=== PATIENT | male | born 1995 | race Caucasian/White ===

== ENCOUNTER 2023-03-15 15:22 | Inpatient (IN) | payer OTHER ==
[2023-03-15] MEDS ORDERED: SODIUM CHLORIDE 0.9% 1,000 ML IV STA (16:05)
[2023-03-15] MEDS ORDERED: KETOROLAC 15 MG/ML 1 ML VIAL IVP STA (16:23)
[2023-03-15] MEDS ORDERED: ONDANSETRON 4 MG/2 ML VIAL IVP STA (16:23)
[2023-03-15 16:53] LABS: Basophils # (A) 0.1 k/uL (0-0.2); Basophils % (A) 1 %; Eosinophils # (A) 0.1 k/uL (0-0.7); Eosinophils % (A) 1 %; HCT 48.5 % (39.0-53.0); Lymphocytes # (A) 2.2 k/uL (1.0-4.8); Lymphocytes % (A) 19 %; MCH 30.3 pg (25.0-35.0); MCV 91.8 fL (80.0-100.0); Mean Platelet Volume 7.8; Monocytes # (A) 0.6 k/uL (0-1.0); Monocytes % (A) 5 %; Neutrophils # (A) 8.8 k/uL (1.3-7.7); Neutrophils % (A) 74 %; Platelet Count 561 k/uL (150-450); RBC 5.28 m/uL (4.30-5.90); RDW 11.9 % (11.5-15.5); WBC 11.9 k/uL (3.8-10.6)
[2023-03-15] MEDS ORDERED: PIPERACILLIN-TAZOBACTAM 3.375 GM in SODIUM CHLORIDE 0.9% 100 ML IVPB STA (17:02)
--- NOTE | 2023-03-15 17:05 | CT ---
EXAMINATION TYPE: CT abdomen pelvis w con DATE OF EXAM: 03/15/2023 COMPARISON: None. HISTORY: abdominal pain, blood in stool CT DLP: 1768.3 mGycm, Automated Exposure Control for Dose Reduction was Utilized. CONTRAST: CT scan of the abdomen and pelvis is performed without oral and with IV Contrast, patient injected wi th 100 mL of Isovue 300. FINDINGS: LUNG BASES: No significant abnormality is appreciated. LIVER/GB: Liver is diffusely low density consistent with fatty infiltration. Tiny dependent gallstone axial image 27. No surrounding fluid or fat stranding. PANCREAS: No significant abnormality is seen. SPLEEN: No significant abnormality is seen. ADRENALS: No significant abnormality is seen. KIDNEYS: No significant abnormality is seen. BOWEL: Slightly suboptimal evaluation without enteric contrast. No suspicious small or large bowel di latation. Appendix appears within normal limits ascending posteriorly from the cecum. There is modera te wall thickening in the right colon into the transverse colon and mild wall thickening in the left colon. There is moderate to severe wall thickening in the sigmoid colon. There is extraluminal air wi th moderate to severe focal fat stranding in the left pelvis axial image 79 consistent with perforate d colitis possible diverticulitis. No well-formed fluid collection or abscess seen. No additional fr ee air noted. PROSTATE/SEMINAL VESICLES: No gross abnormality seen. LYMPH NODES: No greater than 1cm abdominal or pelvic lymph nodes are appreciated. OSSEOUS STRUCTURES: No significant abnormality is seen. OTHER: No significant additional abnormality is seen. IMPRESSION: Multilevel colitis felt present. There is acute severe colitis in the sigmoid colon with perforation in the left pelvis. No well-formed fluid collection or abscess seen. Case discussed with Dr Campo of the emergency room by telephone at time of dictation.
[2023-03-15 17:08] LABS: ALT 147 U/L (4-49); AST 69 U/L (17-59); African American GFR (CKD) >90 (>60 ml/min/1.73 sqM); Albumin 4.6 g/dL (3.5-5.0); Alkaline Phosphatase 143 U/L (38-126); Anion Gap 10 mmol/L; Blood Urea Nitrogen 12 mg/dL (9-20); Calcium 10.2 mg/dL (8.4-10.2); Carbon Dioxide 30 mmol/L (22-30); Chloride 99 mmol/L (98-107); Glucose 91 mg/dL (74-99); Lipase 78 U/L (23-300); Non-African American GFR(CKD) >90 (>60 ml/min/1.73 sqM); Sodium 139 mmol/L (137-145); Total Bilirubin 0.8 mg/dL (0.2-1.3); Total Protein 8.8 g/dL (6.3-8.2)
[2023-03-15] MEDS ORDERED: NALOXONE 0.4 MG/ML 1 ML VIAL IV PRN (17:44)
--- NOTE | 2023-03-15 17:47 | ED ---
Abdominal Pain HPI - General Chief Complaint: Abdominal Pain Stated Complaint: bloody stool Time Seen by Provider: 03/15/23 16:05 Source: patient Mode of arrival: ambulatory Limitations: no limitations - History of Present Illness Initial Comments: Patient is a 27-year-old male presents to the emergency department for abdominal pain. Patient reports intermittent abdominal pain for the past 2 weeks it has been worsening. Pain is sharp across his entire lower abdomen, worse in the left lower abdomen. Patient also complaining of rectal pain. He does admit to some mild straining with bowel movements. Denies history of hemorrhoids. He has had consistent diarrhea and for the past 3 days has noticed red streaking in his stool. He does not use blood thinners. He reports nausea without any vomiting. No fevers or chills. Denies history of GI bleed, colitis, diverticulitis. No back pain, burning with urination, blood in the urine. - Related Data Home Medications Medication Instructions Recorded Confirmed No Known Home Medications 03/15/23 03/15/23 Allergies Allergy/AdvReac Type Severity Reaction Status Date / Time No Known Allergies Allergy Verified 03/15/23 17:24 Review of Systems ROS Statement: Those systems with pertinent positive or pertinent negative responses have been documented in the HPI. ROS Other: All systems not noted in ROS Statement are negative. Past Medical History Past Medical History: No Reported History History of Any Multi-Drug Resistant Organisms: None Reported Past Surgical History: No Surgical Hx Reported Past Psychological History: No Psychological Hx Reported Smoking Status: Former smoker, Vaper Past Alcohol Use History: Occasional Past Drug Use History: None Reported General Exam Limitations: no limitations Head exam: Present: atraumatic, normocephalic, normal inspection Eye exam: Present: normal appearance, PERRL, EOMI. Absent: scleral icterus, conjunctival injection, periorbital swelling Respiratory exam: Present: normal lung sounds bilaterally. Absent: respiratory distress, wheezes, rales, rhonchi, stridor Cardiovascular Exam: Present: regular rate, normal rhythm, normal heart sounds. Absent: systolic murmur, diastolic murmur, rubs, gallop, clicks GI/Abdominal exam: Present: soft, tenderness (moderate LLQ), normal bowel sounds. Absent: distended, guarding, rebound, rigid Rectal exam: Present: normal inspection, tenderness. Absent: bloody stool, hemorrhoids, mass Neurological exam: Present: alert, oriented X3, CN II-XII intact Psychiatric exam: Present: normal affect, normal mood Skin exam: Present: warm, dry, intact, normal color. Absent: rash Course Vital Signs 03/15/23 15:23 Temperature 98.7 F Pulse Rate 84 Respiratory 20 Rate Blood Pressure 121/84 O2 Sat by Pulse 100 Oximetry Medical Decision Making - Medical Decision Making Was pt. sent in by a medical professional or institution (, PA, RN DIABETES, urgent care, hospital, or long-term...) When possible be specific @ -[No] Did you speak to anyone other than the patient for history (EMS, parent, family, police, friend...)? What history was obtained from this source @ -[No] Did you review nursing and triage notes (agree or disagree)? Why? @ -[I reviewed and agree with nursing and triage notes] Were old charts reviewed (outside hosp., previous admission, EMS record, old EKG, old radiological studies, urgent care reports/EKG's, long-term records)? Report findings @ -[No old charts were reviewed] Differential Diagnosis (chest pain, altered mental status, abdominal pain women, abdominal pain men, vaginal bleeding, weakness, fever, dyspnea, syncope, headache, dizziness, GI bleed, back pain, seizure, CVA, palpatations, mental health)? @ -Differential Abdominal Pain Men: Appendicitis, cholecystitis, diverticulosis, ischemic bowel, pancreatitis, hepatitis, UTI, gastroenteritis, AAA, incarcerated hernia, bowel obstruction, constipation, inflammatory bowel, hepatitis, peptic ulcer disease, splenic infarction, perforated viscus, testicular torsion, this is not meant to be an all-inclusive list EKG interpreted by me (3pts min.). @ -[As above] X-rays interpreted by me (1pt min.). @ -[None done] CT interpreted by me (1pt min.). @ -Yes, CT of the abdomen and pelvis with contrast shows multilevel colitis with severe colitis in the sigmoid colon with perforation. No fluid collection or abscess U/S interpreted by me (1pt. min.). @ -[None done] What testing was considered but not performed or refused? (CT, X-rays, U/S, labs)? Why? @ -[None] What meds were considered but not given or refused? Why? @ -[None] Did you discuss the management of the patient with other professionals (professionals i.e. DrAmanuel, PA, RN DIABETES, lab, RT, psych nurse, social media senior associate, lease out worker, teacher, plant protection officer, pillowcase cleaner)? Give summary @ -[No] Was smoking cessation discussed for >3mins.? @ -[No] Was critical care preformed (if so, how long)? @ -[No] Were there social determinants of health that impacted care today? How? (Homelessness, low income, unemployed, alcoholism, drug addiction, transportation, low edu. Level, literacy, decrease access to med. care, [place] [facility], rehab)? @ -[No] Was there de-escalation of care discussed even if they declined (Discuss DNR or withdrawal of care, Hospice)? DNR status @ -[No] What co-morbidities impacted this encounter? (DM, HTN, Smoking, COPD, CAD, Cancer, CVA, ARF, Chemo, Hep., AIDS, mental health diagnosis, sleep apnea, morbid obesity)? @ -[None] Was patient admitted / discharged? Hospital course, mention meds given and route, prescriptions, significant lab abnormalities, going to OR and other pertinent info. @ -Patient presenting with abdominal pain. The abdomen is soft. Tenderness in the left lower quadrant without rebound tenderness or guarding. Patient is afebrile. Hemodynamically stable. No vomiting. Labs obtained. There is leukocytosis at 11.9. Hemoccult positive. CT shows multilevel colitis with severe colitis in the sigmoid colon perforation. There is no fluid collection or abscess. Blood cultures obtained. Zosyn initiated. Case discussed with Dr. Woods patient will be admitted to him. Dr. Woods requested Dr. Hooper for medical management. Patient admitted in stable condition Undiagnosed new problem with uncertain prognosis? @ -[No] Drug Therapy requiring intensive monitoring for toxicity (Heparin, Nitro, Insulin, Cardizem)? @ -[No] Were any procedures done? @ -[No] Diagnosis/symptom? @ -[default] Acute, or Chronic, or Acute on Chronic? @ -[default] Uncomplicated (without systemic symptoms) or Complicated (systemic symptoms)? @ -[default] Side effects of treatment? @ -[No] Exacerbation, Progression, or Severe Exacerbation? @ -[No] Poses a threat to life or bodily function? How? (Chest pain, [place], [place], pneumonia, PE, COPD, DKA, ARF, appy, cholecystitis, CVA, Diverticulitis, Homicidal, Suicidal, threat to staff... and all critical care pts) @ -[No] Dr. Ortiz is my attending - Lab Data Result diagrams: 03/15/23 16:37 03/15/23 16:37 Lab Results 03/15/23 03/15/23 03/15/23 Range/Units 16:37 16:37 16:37 WBC 11.9 H (3.8-10.6) k/uL RBC 5.28 (4.30-5.90) m/uL Hgb 16.0 (13.0-17.5) gm/dL Hct 48.5 (39.0-53.0) % MCV 91.8 (80.0-100.0) fL MCH 30.3 (25.0-35.0) pg MCHC 33.0 (31.0-37.0) g/dL RDW 11.9 (11.5-15.5) % Plt Count 561 H (150-450) k/uL MPV 7.8 Neutrophils % 74 % Lymphocytes % 19 % Monocytes % 5 % Eosinophils % 1 % Basophils % 1 % Neutrophils # 8.8 H (1.3-7.7) k/uL Lymphocytes # 2.2 (1.0-4.8) k/uL Monocytes # 0.6 (0-1.0) k/uL Eosinophils # 0.1 (0-0.7) k/uL Basophils # 0.1 (0-0.2) k/uL Sodium 139 (137-145) mmol/L Potassium 5.0 (3.5-5.1) mmol/L Chloride 99 (98-107) mmol/L Carbon Dioxide 30 (22-30) mmol/L Anion Gap 10 mmol/L BUN 12 (9-20) mg/dL Creatinine 0.69 (0.66-1.25) mg/dL Est GFR (CKD-EPI)AfAm >90 (>60 ml/min/1.73 sqM) Est GFR (CKD-EPI)NonAf >90 (>60 ml/min/1.73 sqM) Glucose 91 (74-99) mg/dL Plasma Lactic Acid Choco (0.7-2.0) mmol/L Calcium 10.2 (8.4-10.2) mg/dL Total Bilirubin 0.8 (0.2-1.3) mg/dL AST 69 H (17-59) U/L ALT 147 H (4-49) U/L Alkaline Phosphatase 143 H (38-126) U/L Total Protein 8.8 H (6.3-8.2) g/dL Albumin 4.6 (3.5-5.0) g/dL Lipase 78 (23-300) U/L Stool Occult Blood Positive (Negative) 03/15/23 Range/Units 16:37 WBC (3.8-10.6) k/uL RBC (4.30-5.90) m/uL Hgb (13.0-17.5) gm/dL Hct (39.0-53.0) % MCV (80.0-100.0) fL MCH (25.0-35.0) pg MCHC (31.0-37.0) g/dL RDW (11.5-15.5) % Plt Count (150-450) k/uL MPV Neutrophils % % Lymphocytes % % Monocytes % % Eosinophils % % Basophils % % Neutrophils # (1.3-7.7) k/uL Lymphocytes # (1.0-4.8) k/uL Monocytes # (0-1.0) k/uL Eosinophils # (0-0.7) k/uL Basophils # (0-0.2) k/uL Sodium (137-145) mmol/L Potassium (3.5-5.1) mmol/L Chloride (98-107) mmol/L Carbon Dioxide (22-30) mmol/L Anion Gap mmol/L BUN (9-20) mg/dL Creatinine (0.66-1.25) mg/dL Est GFR (CKD-EPI)AfAm (>60 ml/min/1.73 sqM) Est GFR (CKD-EPI)NonAf (>60 ml/min/1.73 sqM) Glucose (74-99) mg/dL Plasma Lactic Acid Choco 1.0 (0.7-2.0) mmol/L Calcium (8.4-10.2) mg/dL Total Bilirubin (0.2-1.3) mg/dL AST (17-59) U/L ALT (4-49) U/L Alkaline Phosphatase (38-126) U/L Total Protein (6.3-8.2) g/dL Albumin (3.5-5.0) g/dL Lipase (23-300) U/L Stool Occult Blood (Negative) Disposition Clinical Impression: Perforation bowel Disposition: ADMITTED IP TO THIS [facility] Condition: Stable Referrals: None,Stated [Primary Care Provider] - 1-2 days
[2023-03-15] MEDS ORDERED: CLARITHROMYCIN 500 MG TAB PO STA (18:06)
[2023-03-15] MEDS: MORPHINE SULFATE 4 MG/ML SYRINGE IV PRN (20:13)
[2023-03-15] MEDS: SODIUM CHLORIDE 0.9% 1,000 ML IV SCH (20:15)
[2023-03-15] MEDS ORDERED: AMOXICILLIN 500 MG CAP PO SCH (21:00)
[2023-03-15] MEDS ORDERED: CLARITHROMYCIN 500 MG TAB PO SCH (21:00)
[2023-03-16] MEDS: MORPHINE SULFATE 4 MG/ML SYRINGE IV PRN ×2 (00:05→07:50)
[2023-03-16] MEDS: SODIUM CHLORIDE 0.9% 1,000 ML IV SCH ×4 (02:53→20:33)
[2023-03-16] MEDS ORDERED: PIPERACILLIN-TAZOBACTAM 3.375 GM in SODIUM CHLORIDE 0.9% 100 ML IVPB SCH (08:30)
[2023-03-16 08:40] LABS: Appearance,Urine Clear (Clear); Bilirubin,Urine Negative (Negative); Blood,Urine Negative (Negative); Color,Urine Yellow; Glucose,Urine (UA) Negative (Negative); Ketones,Urine Negative (Negative); Leukocyte Esterase,Urine Negative (Negative); Nitrite,Urine Negative (Negative); PH, Urine 5.5 (5.0-8.0); Protein,Urine Trace (Negative); Specific Gravity,Urine 1.038 (1.001-1.035); Urobilinogen,Urine <2.0 mg/dL (<2.0)
[2023-03-16] MEDS: LEVOFLOXACIN 500MG-D5W PMX 500 MG in DEXTROSE/WATER 1 100ML.BAG IVPB SCH (09:26)
[2023-03-16] MEDS: metroNIDAZOLE-NS PMX 500 MG in SALINE 1 100ML.BAG IVPB SCH ×3 (10:32→23:47)
[2023-03-16] MEDS: HYDROmorphone 1 MG/ML 1 ML SYRINGE IVP PRN ×5 (10:36→23:53)
--- NOTE | 2023-03-16 11:39 | P.GSHP ---
History of Present Illness H&P Date: 03/16/23 CHIEF COMPLAINT: Abdominal pain HISTORY OF PRESENT ILLNESS: This is a 27-year-old male who presented with left lower quadrant abdominal pain for about 2 weeks. Patient reports that he has not had a normal bowel movement about 6 days. It extended loose and mucousy. I'm at times he passes blood with bowel movement or without bowel movement. He denies any history of inflammatory bowel disease. Denies any family history of Crohn's or inflammatory bowel disease. Does have a mother father and grandmother with a known history of colon cancer. Patient has never had any prior history of colonoscopy. Patient has computed tomography scan that showed evidence of a multilevel colitis severe colitis of the sigmoid colon with perforation in the left pelvis. White count was elevated at 11.9. Patient also reporting some difficulty with urinating. Patient reports he has been able to urinate this morning after receiving IV fluids. Urine was dark. Patient seen and examined with Dr. griggs PAST MEDICAL HISTORY: none PAST SURGICAL HISTORY: none MEDICATIONS: See below ALLERGIES: See below SOCIAL HISTORY: No illicit drug use. Vaper REVIEW OF SYSTEMS: CONSTITUTIONAL: Denies fever or chills. HEENT: Denies blurred vision, vision changes, or eye pain. Denies hemoptysis CARDIOVASCULAR: Denies chest pain or pressure. RESPIRATORY: No shortness of breath. GASTROINTESTINAL: See HPI for pertinent findings HEMATOLOGIC: Denies bleeding disorders. GENITOURINARY: Denies any blood in urine or increased urinary frequency. SKIN: Denies pruitis. Denies rash. PHYSICAL EXAM: VITAL SIGNS: Reviewed GENERAL: Well-developed in no acute distress. HEENT: No sclera icterus. Extraocular movements grossly intact. Moist buccal mucosa. Head is atraumatic, normocephalic. No nasal drainage. ABDOMEN: Soft. Nondistended. Tenderness palpation left lower quadrant. NEUROLOGIC: Alert and oriented. Cranial nerves II through XII grossly intact. LABORATORY DATA: WBC is 11.9 Hgb 16 platelets 561 Sodium 139 potassium is 5.0 creatinine 0.69 Total bili 0.8 AST 69 ALT 147 alk phos 143 lipase 78 urinalysis negative for infection Stool for occult blood positive IMAGING: Computed tomography scan of pelvis multilevel colitis felt present. There is acute severe colitis in the sigmoid colon with perforation in the left pelvis. No well formed fluid collection or abscess seen. ASSESSMENT: 1. Acute severe colitis in the sigmoid colon with perforation PLAN: -Keep patient nothing by mouth with bowel rest -Continue IV antibiotics -Continue IV fluids -Continue pain medication as needed -Medicine service consulted Physician Core Oven Tender note has been reviewed by physician. Signing provider agrees with the documented findings, assessment, and plan of care. Past Medical History Past Medical History: No Reported History History of Any Multi-Drug Resistant Organisms: None Reported Past Surgical History: No Surgical Hx Reported Past Anesthesia/Blood Transfusion Reactions: No Reported Reaction Past Psychological History: No Psychological Hx Reported Smoking Status: Former smoker, Vaper Past Alcohol Use History: Occasional Past Drug Use History: None Reported Medications and Allergies Home Medications Medication Instructions Recorded Confirmed Type No Known Home Medications 03/15/23 03/15/23 History Allergies Allergy/AdvReac Type Severity Reaction Status Date / Time No Known Allergies Allergy Verified 03/15/23 17:24 Surgical - Exam Vital Signs Temp Pulse Resp BP Pulse Ox 98.7 F 84 20 121/84 100 03/15/23 15:23 03/15/23 15:23 03/15/23 15:23 03/15/23 15:23 03/15/23 15:23 Results - Labs 03/15/23 16:37 03/15/23 16:37 Abnormal Lab Results - Last 24 Hours (Table) 03/15/23 03/15/23 03/15/23 Range/Units 08:10 16:37 16:37 WBC 11.9 H (3.8-10.6) k/uL Plt Count 561 H (150-450) k/uL Neutrophils # 8.8 H (1.3-7.7) k/uL AST 69 H (17-59) U/L ALT 147 H (4-49) U/L Alkaline Phosphatase 143 H (38-126) U/L Total Protein 8.8 H (6.3-8.2) g/dL Ur Specific [place] 1.038 H (1.001-1.035) Urine Protein Trace H (Negative) Diabetes panel 03/15/23 Range/Units 16:37 Sodium 139 (137-145) mmol/L Potassium 5.0 (3.5-5.1) mmol/L Chloride 99 (98-107) mmol/L Carbon Dioxide 30 (22-30) mmol/L BUN 12 (9-20) mg/dL Creatinine 0.69 (0.66-1.25) mg/dL Glucose 91 (74-99) mg/dL Calcium 10.2 (8.4-10.2) mg/dL AST 69 H (17-59) U/L ALT 147 H (4-49) U/L Alkaline Phosphatase 143 H (38-126) U/L Total Protein 8.8 H (6.3-8.2) g/dL Albumin 4.6 (3.5-5.0) g/dL Calcium panel 03/15/23 Range/Units 16:37 Calcium 10.2 (8.4-10.2) mg/dL Albumin 4.6 (3.5-5.0) g/dL Pituitary panel 03/15/23 Range/Units 16:37 Sodium 139 (137-145) mmol/L Potassium 5.0 (3.5-5.1) mmol/L Chloride 99 (98-107) mmol/L Carbon Dioxide 30 (22-30) mmol/L BUN 12 (9-20) mg/dL Creatinine 0.69 (0.66-1.25) mg/dL Glucose 91 (74-99) mg/dL Calcium 10.2 (8.4-10.2) mg/dL Adrenal panel 03/15/23 Range/Units 16:37 Sodium 139 (137-145) mmol/L Potassium 5.0 (3.5-5.1) mmol/L Chloride 99 (98-107) mmol/L Carbon Dioxide 30 (22-30) mmol/L BUN 12 (9-20) mg/dL Creatinine 0.69 (0.66-1.25) mg/dL Glucose 91 (74-99) mg/dL Calcium 10.2 (8.4-10.2) mg/dL Total Bilirubin 0.8 (0.2-1.3) mg/dL AST 69 H (17-59) U/L ALT 147 H (4-49) U/L Alkaline Phosphatase 143 H (38-126) U/L Total Protein 8.8 H (6.3-8.2) g/dL Albumin 4.6 (3.5-5.0) g/dL
--- NOTE | 2023-03-16 16:30 | P.CONS ---
History of Present Illness - Reason for Consult Consult date: 03/16/23 Medical management Requesting physician: Bereket Sarabia - Chief Complaint Abdominal pain - History of Present Illness This is a 27-year-old patient with no family doctor. For one month has been having lower abdominal pain on and off. Pain progressed. Then became constant. With waxing and waning. Started having bloody stools. Finding his mother coax him to come to the hospital. Patient is decreased appetite some weight loss. No fever no chills. Computed tomography scan showing multilevel colitis. Including severe in the sigmoid colon with perforation. In the left pelvis. No well-formed fluid collection. Or abscess was seen. Patient was started on IV F lagyl and IV Levaquin by surgery. Review of systems: GEN.: Tired weight loss decreased appetite EYES: None HEENT: None NECK: None RESPIRATORY: None CARDIOVASCULAR: None GASTROINTESTINAL: None GENITOURINARY: None MUSCULOSKELETAL: As above LYMPHATICS: None HEMATOLOGICAL: None PSYCHIATRY: None NEUROLOGICAL: None Past medical history to include: None Social history: Lives alone. Continue working. Is a management trainer. Stopped smoking about a month ago. Stopped drinking alcohol about a month ago. Does marijuana occasionally. Physical examination: VITAL SIGNS: 98.1, 71, 16, 11 3 x 64, 100% room air GENERAL: BMI 31.2, declining a bit awake tired. EYES: Pupils equal. Conjunctiva normal. HEENT: External appearance of nose and ears normal, oral cavity grossly normal. NECK: JVD not raised; masses not palpable. HEART: First and second heart sounds are normal; no edema. LUNGS: Respiratory rate normal; clear to auscultation. ABDOMEN: Soft, left-sided tenderness, no guarding rigidity, liver spleen not palpable, no masses palpable. PSYCH: Alert and oriented x3; mood and affect normal. MUSCULOSKELETAL:No Clubbing/cyanosis;muscles-grossly intact NEUROLOGICAL: Cranial nerves grossly intact; no facial asymmetry, power and sensation grossly intact. LYMPHATICS: No lymph nodes palpable in the axilla and neck INVESTIGATIONS, reviewed in the clinical context: White count 11.9 hemoglobin 16 platelets 561 potassium 5 creatinine 0.69 AST 69 ALT 147 Computed tomography scan abdomen and pelvis with contrast: Moderate wall thickening in the right colon into the transverse colon and mild wall thickening in the left colon. There is moderate to severe wall thickening in the sigmoid colon with extraluminal air with moderate to severe focal fat stranding in the left pelvis consistent perforated colitis./Diverticulitis. Assessment and plan: -Acute colitis affecting both the left side and the right side, with perforation in the area of sigmoid colon which could have been a diverticulitis. Nothing by mouth. IV Levaquin. IV Flagyl. Being followed by surgery. -Obesity BMI 31.2 Weight loss measures Care was discussed extensively with the mother the patient. Who was initially rather irritated. But then settled down. Different outcome courses were discussed. Timeframes were discussed. Thank you Dr. Sarabia Past Medical History Past Medical History: No Reported History History of Any Multi-Drug Resistant Organisms: None Reported Past Surgical History: No Surgical Hx Reported Past Anesthesia/Blood Transfusion Reactions: No Reported Reaction Past Psychological History: No Psychological Hx Reported Smoking Status: Former smoker, Vaper Past Alcohol Use History: Occasional Past Drug Use History: None Reported Medications and Allergies Home Medications Medication Instructions Recorded Confirmed Type No Known Home Medications 03/15/23 03/15/23 History Allergies Allergy/AdvReac Type Severity Reaction Status Date / Time No Known Allergies Allergy Verified 03/15/23 17:24 Physical Exam Vitals: Vital Signs Temp Pulse Pulse Resp BP BP Pulse Ox 03/16/23 07:44 98.1 F 71 16 113/64 100 03/16/23 02:00 98.0 F 73 18 106/69 98 03/15/23 20:20 84 16 128/78 99 03/15/23 15:23 98.7 F 84 20 121/84 100 Intake and Output 03/15/23 03/16/23 03/16/23 22:59 06:59 14:59 Output Total 400 Balance -400 Output: Urine 400 Other: # Voids 2 Weight 104.326 kg Results CBC & Chem 7: 03/15/23 16:37 03/15/23 16:37 Labs: Abnormal Lab Results - Last 24 Hours (Table) 03/15/23 03/15/23 03/15/23 Range/Units 08:10 16:37 16:37 WBC 11.9 H (3.8-10.6) k/uL Plt Count 561 H (150-450) k/uL Neutrophils # 8.8 H (1.3-7.7) k/uL AST 69 H (17-59) U/L ALT 147 H (4-49) U/L Alkaline Phosphatase 143 H (38-126) U/L Total Protein 8.8 H (6.3-8.2) g/dL Ur Specific [place] 1.038 H (1.001-1.035) Urine Protein Trace H (Negative)
[2023-03-17] MEDS: metroNIDAZOLE-NS PMX 500 MG in SALINE 1 100ML.BAG IVPB SCH ×3 (07:59→23:00)
[2023-03-17] MEDS: HYDROmorphone 1 MG/ML 1 ML SYRINGE IVP PRN ×5 (07:59→21:19)
--- NOTE | 2023-03-17 09:30 | P.PN ---
Progress Note - Text Progress Note Date: 03/17/23 Patient feels slightly better today. On exam vital signs are stable. Abdomen is soft. There is minimal lower quadrant tenderness. Resolving sigmoid colitis. Patient will have an ultrasound of his gallbladder performed due to elevated LFTs.
[2023-03-17] MEDS: LEVOFLOXACIN 500MG-D5W PMX 500 MG in DEXTROSE/WATER 1 100ML.BAG IVPB SCH (10:25)
--- NOTE | 2023-03-17 10:50 | US ---
EXAMINATION TYPE: US gallbladder DATE OF EXAM: 03/17/2023 COMPARISON: NONE CLINICAL INDICATION: Male, 27 years old with history of Elevated liver function tests; Elevated liver enzymes. Exam limited due to body habitus and bowel gas. TECHNIQUE: Multiple sonographic images of the right upper quadrant are obtained. FINDINGS: EXAM MEASUREMENTS: Liver Length: 14.9 cm Gallbladder Wall: .3 cm CBD: cm Right Kidney: 10.5 x 6.4 x 4.3 cm IT SECURITY ANALYST NOTES: Pancreas: Obscured by bowel gas Liver: Increased attenuation Gallbladder: No stones seen Evidence for sonographic Gloria's sign: No CBD: wnl Right Kidney: wnl IMPRESSION: Hepatic steatosis
[2023-03-17] MEDS: SODIUM CHLORIDE 0.9% 1,000 ML IV SCH ×3 (11:37→23:01)
[2023-03-17] MEDS: PANTOPRAZOLE 40 MG/10 ML VIAL IVP SCH (11:37)
[2023-03-17 12:30] LABS: ALT 59 U/L (4-49); AST 21 U/L (17-59); African American GFR (CKD) >90 (>60 ml/min/1.73 sqM); Albumin 3.9 g/dL (3.5-5.0); Albumin/Globulin Ratio 1.1; Alkaline Phosphatase 105 U/L (38-126); Anion Gap 11 mmol/L; Blood Urea Nitrogen 10 mg/dL (9-20); Calcium 9.3 mg/dL (8.4-10.2); Carbon Dioxide 21 mmol/L (22-30); Chloride 103 mmol/L (98-107); Globulin 3.4 g/dL; Glucose 74 mg/dL (74-99); Non-African American GFR(CKD) >90 (>60 ml/min/1.73 sqM); Potassium 4.7 mmol/L (3.5-5.1); Sodium 135 mmol/L (137-145); Total Bilirubin 0.7 mg/dL (0.2-1.3); Total Protein 7.3 g/dL (6.3-8.2)
--- NOTE | 2023-03-17 17:20 | P.PN ---
Subjective Progress Note Date: 03/17/23 (') This is a 27-year-old patient with no family doctor. For one month has been having lower abdominal pain on and off. Pain progressed. Then became constant. With waxing and waning. Started having bloody stools. Finding his mother coax him to come to the hospital. Patient is decreased appetite some weight loss. No fever no chills. Computed tomography scan showing multilevel colitis. Including severe in the sigmoid colon with perforation. In the left pelvis. No well-formed fluid collection. Or abscess was seen. Patient was started on IV Flagyl and IV Levaquin by surgery. 03/17/2023 Patient is evaluated today resting in bed. Continues to report significant abdominal pain mostly suprapubic and radiating through to the back with some abdominal tenderness. General surgery following and abdominal ultrasound ordered due to elevated LFT's. Ultrasound shows hepatic steatosis. LFT's have improved. Lipase was 78. He is on clear liquid diet. Vitals are stable. Review of Systems Constitutional: Denied any fatigue denied any fever. Cardio vascular: denied any chest pain, palpitations Gastrointestinal: denied any nausea, vomiting, diarrhea. Reports abdominal pain. Pulmonary: Denied any shortness of breath cough Neurologic denied any new focal deficits All inpatient medications were reviewed and appropriate changes in these medications as dictated in the interval history and assessment and plan. PHYSICAL EXAMINATION: GENERAL: The patient is alert and oriented x3, not in any acute distress. Well developed, well nourished. HEENT: Pupils are round and equally reacting to light. EOMI. No scleral icterus. No conjunctival pallor. Normocephalic, atraumatic. No pharyngeal erythema. No thyromegaly. CARDIOVASCULAR: S1 and S2 present. No murmurs, rubs, or gallops. PULMONARY: Chest is clear to auscultation, no wheezing or crackles. ABDOMEN: Soft, tender, nondistended, normoactive bowel sounds. No palpable organomegaly. MUSCULOSKELETAL: No joint swelling or deformity. EXTREMITIES: No cyanosis, clubbing, or pedal edema. NEUROLOGICAL: Gross neurological examination did not reveal any focal deficits. SKIN: No rashes. Assessment and plan: -Acute colitis affecting both the left side and the right side, with perforation in the area of sigmoid colon which could have been a diverticulitis. -Obesity BMI 31.2 -Former smoker GI prophylaxis Full Code Plan Continue antibiotics per surgery. Clear liquid diet. Pain management in place. Patient is being hydrated. The impression and plan of care has been dictated by Tiara Crowley, Nurse Practitioner as directed. Dr. Lulú MD I have performed a history and physical examination and medical decision making of this patient, discussed the same with the dictator, and agree with the dictators assessment and plan as written, documented as a scribe. Based on total visit time, I have performed more than 50% of this visit. Objective - Vital Signs Vital signs: Vital Signs Temp 98.4 F 03/17/23 13:53 Pulse 65 03/17/23 13:53 Resp 17 03/17/23 13:53 BP 121/74 03/17/23 13:53 Pulse Ox 98 03/17/23 13:53 FiO2 Intake & Output 03/16/23 03/17/23 03/17/23 18:59 06:59 18:59 Intake Total 2200 Output Total 600 1075 700 Balance -600 1125 -700 Intake: Intake, IV Titration 2200 Amount Sodium Chloride 0.9% 1, 2000 000 ml @ 130 mls/hr IV . Q7H42M [facility] Rx#:[id number] metroNIDAZOLE-NS PMX 500 200 mg In Saline 1 100ml.bag @ 100 mls/hr IVPB Q8HR [facility] Rx#:[id number] Output: Urine 600 1075 700 Stool 0 Other: Voiding Method Toilet # Voids 1 # Bowel Movements 0 - Labs CBC & Chem 7: 03/15/23 16:37 03/17/23 11:54 Labs: Abnormal Lab Results - Last 24 Hours (Table) 03/17/23 Range/Units 11:54 Sodium 135 L (137-145) mmol/L Carbon Dioxide 21 L (22-30) mmol/L Creatinine 0.63 L (0.66-1.25) mg/dL ALT 59 H (4-49) U/L Microbiology - Last 24 Hours (Table) 03/15/23 17:15 Blood Culture - Preliminary Blood 03/15/23 17:30 Blood Culture - Preliminary Blood Assessment and Plan Time with Patient: Less than 30
[2023-03-18] MEDS: HYDROmorphone 1 MG/ML 1 ML SYRINGE IVP PRN ×5 (05:32→22:15)
--- NOTE | 2023-03-18 10:00 | P.PN ---
Progress Note - Text Progress Note Date: 03/18/23 Patient feels better. He has less abdominal pain. He is having bowel movements. On exam vital signs are stable. Abdomen soft. Resolving colitis. History discharged home tomorrow.
[2023-03-18] MEDS: PANTOPRAZOLE 40 MG/10 ML VIAL IVP SCH (10:20)
[2023-03-18] MEDS: metroNIDAZOLE-NS PMX 500 MG in SALINE 1 100ML.BAG IVPB SCH ×2 (10:20→15:27)
[2023-03-18] MEDS: SODIUM CHLORIDE 0.9% 1,000 ML IV SCH ×2 (10:21→18:10)
[2023-03-18 10:26] LABS: Basophils # (A) 0.07 X 10*3/uL (0.00-0.10); Basophils % (A) 0.9 %; Eosinophils # (A) 0.17 X 10*3/uL (0.04-0.35); Eosinophils % (A) 2.1 %; HCT 42.4 % (39.6-50.0); HGB 13.6 g/dL (13.0-17.0); Immature Grans, Automated 0.4 %; Lymphocytes # (A) 1.81 X 10*3/uL (0.90-5.00); Lymphocytes % (A) 22.2 %; MCH 29.4 pg (27.0-32.0); MCHC 32.1 g/dL (32.0-37.0); MCV 91.8 fL (80.0-97.0); Mean Platelet Volume 10.1 fL (9.5-12.2); Monocytes # (A) 0.71 X 10*3/uL (0.20-1.00); Monocytes % (A) 8.7 %; NRBC Per 100 WBC 0 /100 WBCS (0.0-0.0); Neutrophils # (A) 5.35 X 10*3/uL (1.80-7.70); Neutrophils % (A) 65.7 %; Platelet Count 505 X 10*3/uL (140-440); RBC 4.62 X 10*6/uL (4.40-5.60); RDW 11.6 % (11.5-14.5); WBC 8.14 X 10*3/uL (4.50-10.00)
[2023-03-18] MEDS: LEVOFLOXACIN 500MG-D5W PMX 500 MG in DEXTROSE/WATER 1 100ML.BAG IVPB SCH (11:25)
--- NOTE | 2023-03-18 14:51 | P.PN ---
Subjective Progress Note Date: 03/18/23 This is a 27-year-old patient with no family doctor. For one month has been having lower abdominal pain on and off. Pain progressed. Then became constant. With waxing and waning. Started having bloody stools. Finding his mother coax him to come to the hospital. Patient is decreased appetite some weight loss. No fever no chills. Computed tomography scan showing multilevel colitis. Including severe in the sigmoid colon with perforation. In the left pelvis. No well-formed fluid collection. Or abscess was seen. Patient was started on IV Flagyl and IV Levaquin by surgery. 03/17/2023 Patient is evaluated today resting in bed. Continues to report significant abdominal pain mostly suprapubic and radiating through to the back with some abdominal tenderness. General surgery following and abdominal ultrasound ordered due to elevated LFT's. Ultrasound shows hepatic steatosis. LFT's have improved. Lipase was 78. He is on clear liquid diet. Vitals are stable. 03/18/2023 Patient is evaluated today resting in bed. Patient has continued suprapubic discomfort and concern for urinary retention. A post void residual done and negative. Abdominal pain is improving. Patient had a bowel movement and has positive bowel sounds. Continues on clear liquid diet. Continues on IV levofloxacin/metronidazole. White count has normalized down to 8.14. Surgery planning on discharge home tomorrow. Review of Systems Constitutional: Denied any fatigue denied any fever. Cardio vascular: denied any chest pain, palpitations Gastrointestinal: denied any nausea, vomiting, diarrhea. Reports abdominal pain, improving. Pulmonary: Denied any shortness of breath cough Neurologic denied any new focal deficits All inpatient medications were reviewed and appropriate changes in these medications as dictated in the interval history and assessment and plan. PHYSICAL EXAMINATION: GENERAL: The patient is alert and oriented x3, not in any acute distress. Well developed, well nourished. HEENT: Pupils are round and equally reacting to light. EOMI. No scleral icterus. No conjunctival pallor. Normocephalic, atraumatic. No pharyngeal erythema. No thyromegaly. CARDIOVASCULAR: S1 and S2 present. No murmurs, rubs, or gallops. PULMONARY: Chest is clear to auscultation, no wheezing or crackles. ABDOMEN: Soft, tender, nondistended, normoactive bowel sounds. No palpable organomegaly. MUSCULOSKELETAL: No joint swelling or deformity. EXTREMITIES: No cyanosis, clubbing, or pedal edema. NEUROLOGICAL: Gross neurological examination did not reveal any focal deficits. SKIN: No rashes. Assessment and plan: -Acute colitis affecting both the left side and the right side, with perforation in the area of sigmoid colon which could have been a diverticulitis. Resolving abdominal pain continues on IV metronidazole and IV levofloxacin. Abdominal symptoms improving. -Obesity BMI 31.2 -Former smoker GI prophylaxis Full Code Plan Continue antibiotics per surgery. Clear liquid diet. Pain management in place. Patient is being hydrated. Possible discharge home in the next 24 hours. The impression and plan of care has been dictated by Tiara Crowley Nurse Practitioner as directed. Dr. Lulú MD I have performed a history and physical examination and medical decision making of this patient, discussed the same with the dictator, and agree with the dictators assessment and plan as written, documented as a scribe. Based on total visit time, I have performed more than 50% of this visit. Objective - Vital Signs Vital signs: Vital Signs Temp 97.6 F 03/18/23 14:00 Pulse 70 03/18/23 14:00 Resp 17 03/18/23 14:00 BP 122/81 03/18/23 14:00 Pulse Ox 99 03/18/23 14:00 FiO2 Intake & Output 03/17/23 03/18/23 03/18/23 18:59 06:59 18:59 Output Total 700 600 Balance -700 -600 Output: Urine 700 600 Post Void Residual 0 Other: Voiding Method Toilet # Voids 2 - Labs CBC & Chem 7: 03/18/23 05:38 03/17/23 11:54 Labs: Abnormal Lab Results - Last 24 Hours (Table) 03/18/23 Range/Units 05:38 Plt Count 505 H (140-440) X 10*3/uL Microbiology - Last 24 Hours (Table) 03/15/23 17:15 Blood Culture - Preliminary Blood 03/15/23 17:30 Blood Culture - Preliminary Blood Assessment and Plan Time with Patient: Less than 30
[2023-03-19] MEDS: metroNIDAZOLE-NS PMX 500 MG in SALINE 1 100ML.BAG IVPB SCH ×3 (00:14→17:13)
[2023-03-19] MEDS: HYDROmorphone 1 MG/ML 1 ML SYRINGE IVP PRN ×5 (05:28→20:57)
[2023-03-19] MEDS: SODIUM CHLORIDE 0.9% 1,000 ML IV SCH ×2 (06:29→21:00)
[2023-03-19] MEDS: PANTOPRAZOLE 40 MG/10 ML VIAL IVP SCH (08:19)
--- NOTE | 2023-03-19 09:30 | US ---
EXAMINATION TYPE: US venous doppler duplex LE RT DATE OF EXAM: 03/19/2023 9:05 AM COMPARISON: NONE CLINICAL INDICATION: Male, 27 years old with history of r/o DVT; right leg pain today SIDE PERFORMED: right TECHNIQUE: The lower extremity deep venous system is examined utilizing real time linear array sonog adrianna with graded compression, doppler sonography and color-flow sonography. VESSELS IMAGED: Common Femoral Vein Deep Femoral Vein Greater Saphenous Vein * Femoral Vein Popliteal Vein Small Saphenous Vein * Proximal Calf Veins (* superficial vessels) Right Leg: no evidence of DVT as visualized Grayscale, color doppler, spectral doppler imaging performed of the deep veins of the right lower ext remity. There is normal flow, compressibility, vascular waveforms. IMPRESSION: No ultrasound evidence for acute DVT in the right lower extremity.
[2023-03-19] MEDS: LEVOFLOXACIN 500MG-D5W PMX 500 MG in DEXTROSE/WATER 1 100ML.BAG IVPB SCH (09:48)
[2023-03-19] MEDS: IOPAMIDOL CONTRAST (ORAL USE) VIAL PO PRN ×2 (10:47→11:52)
--- NOTE | 2023-03-19 10:47 | P.PN ---
Subjective Progress Note Date: 03/19/23 CHIEF COMPLAINT: Abdominal pain HISTORY OF PRESENT ILLNESS: Surgical service on regards to patient's colitis with sigmoid perforation. Patient is still requiring IV Dilaudid almost every 3 hours. His pain is now more localized in the suprapubic area. He is having flatus. Did have 2 loose stools yesterday with small amount of blood. He is urinating easier. Afebrile. WBC 8.14 PHYSICAL EXAM: VITAL SIGNS: Reviewed. GENERAL: Well-developed in no acute distress. HEENT: No sclera icterus. Extraocular movements grossly intact. Moist buccal mucosa. Head is atraumatic, normocephalic. ABDOMEN: Soft. Nondistended. Tenderness to palpation in the suprapubic area NEUROLOGIC: Alert and oriented. Cranial nerves II through XII grossly intact. ASSESSMENT: 1. Acute severe colitis in the sigmoid colon with perforation 2. Pancolitis PLAN: -Computed tomography scan abdomen and pelvis with oral and IV contrast ordered for further evaluation patient's colitis -Continue clear liquid diet -Continue antibiotics -Continue IV fluids -Continue pain medication Physician [employer] Developer note has been reviewed by physician. Signing provider agrees with the documented findings, assessment, and plan of care. Objective - Vital Signs Vital signs: Vital Signs Temp 98.2 F 03/19/23 07:04 Pulse 61 03/19/23 07:04 Resp 17 03/19/23 07:04 BP 112/68 03/19/23 07:04 Pulse Ox 99 03/19/23 07:04 FiO2 Intake & Output 03/18/23 03/19/23 03/19/23 18:59 06:59 18:59 Output Total 600 Balance -600 Output: Urine 600 Post Void Residual 0 Other: Voiding Method Toilet # Voids 2 - Labs CBC & Chem 7: 03/18/23 05:38 03/17/23 11:54 Labs: Abnormal Lab Results - Last 24 Hours (Table) 03/18/23 Range/Units 05:38 Plt Count 505 H (140-440) X 10*3/uL Microbiology - Last 24 Hours (Table) 03/15/23 17:15 Blood Culture - Preliminary Blood 03/15/23 17:30 Blood Culture - Preliminary Blood
--- NOTE | 2023-03-19 12:51 | CT ---
EXAMINATION TYPE: CT abdomen pelvis w con CT DLP: 1650.1 mGycm, Automated exposure control for dose reduction was used. DATE OF EXAM: 03/19/2023 12:31 PM COMPARISON: CT abdomen pelvis most recent from 03/15/2023 CLINICAL INDICATION:Male, 27 years old with history of abdominal pain, colitis; Abdominal pain, colit is TECHNIQUE: Axial CT of the abdomen and pelvis. Sagittal and coronal reformats were created on a [employer] workstation. Contrast used:100 ml mL of Isovue 300 with IV Contrast, Oral contrast used: with Oral Contrast FINDINGS: LOWER CHEST: Unremarkable ABDOMEN LIVER: Unremarkable GALLBLADDER AND BILE DUCTS: Unremarkable. PANCREAS: Unremarkable. SPLEEN: Unremarkable. ADRENAL GLANDS: Unremarkable. KIDNEYS AND URETERS: No evidence of hydronephrosis or renal calculus. The ureters are unremarkable. PELVIS BLADDER: Unremarkable REPRODUCTIVE: Unremarkable. ABDOMEN & PELVIS STOMACH AND BOWEL: No evidence of bowel obstruction. Redemonstration of perforation of the sigmoid co modesto with feces outside the bowel lumen series 201 image 79. Overall this segment of bowel measures at least 9.4 cm in length involving predominantly the sigmoid colon. Findings not significantly changed from 03/15/2023. No abscess formation at this time. PERITONEUM/RETROPERITONEUM: No evidence of pneumoperitoneum or free fluid. VASCULATURE: No evidence of aortic aneurysm. MUSCULOSKELETAL: No acute osseous abnormalities LYMPH NODES: No gross evidence for lymphadenopathy. SOFT TISSUE/ABDOMINAL WALL: Fat-containing umbilical hernia. IMPRESSION: Redemonstration of perforation of the sigmoid colon with feces outside the bowel lumen series 201 catalino ge 79. Overall this segment of bowel measures at least 9.4 cm in length involving predominantly the s igmoid colon. Findings not significantly changed from 03/15/2023. Surgical consultation for feces outs juju the bowel.
--- NOTE | 2023-03-19 15:52 | P.PN ---
Progress Note - Text Progress Note Date: 03/19/23 The patient's CAT scan was reviewed. The patient had another CAT scan performed due to his ongoing use of narcotic pain meds. Patient's CAT scan shows evidence of a sigmoid perforation. There is some feculent contents inside the colon. Due to the contained colonic perforation. The patient will undergo exploratory laparotomy with diverting colostomy tomorrow. I discussed with the patient. I have answered all his questions. Patient understands that he will have a colostomy which we temporary with plans for reversal colostomy in 3-4 months.
--- NOTE | 2023-03-19 17:18 | P.PN ---
Subjective Progress Note Date: 03/19/23 This is a 27-year-old patient with no family doctor. For one month has been having lower abdominal pain on and off. Pain progressed. Then became constant. With waxing and waning. Started having bloody stools. Finding his mother coax him to come to the hospital. Patient is decreased appetite some weight loss. No fever no chills. Computed tomography scan showing multilevel colitis. Including severe in the sigmoid colon with perforation. In the left pelvis. No well-formed fluid collection. Or abscess was seen. Patient was started on IV Flagyl and IV Levaquin by surgery. 03/17/2023 Patient is evaluated today resting in bed. Continues to report significant abdominal pain mostly suprapubic and radiating through to the back with some abdominal tenderness. General surgery following and abdominal ultrasound ordered due to elevated LFT's. Ultrasound shows hepatic steatosis. LFT's have improved. Lipase was 78. He is on clear liquid diet. Vitals are stable. 03/18/2023 Patient is evaluated today resting in bed. Patient has continued suprapubic discomfort and concern for urinary retention. A post void residual done and negative. Abdominal pain is improving. Patient had a bowel movement and has positive bowel sounds. Continues on clear liquid diet. Continues on IV levofloxacin/metronidazole. White count has normalized down to 8.14. Surgery planning on discharge home tomorrow. 03/19/2023 Patient continues to report suprapubic discomfort. He states that his urinary stream has improved and his daughter having issues with urination. Bladder scan was found to be negative. He was not having any post void residuals. He did have a venous Doppler done which was negative for DVT. His abdominal pelvis CT follow-up today is showing a redemonstration of perforation of the sigmoid colon with feces outside of the bowel lumen treated overall the segment of bowel measures at least 9.4 cm in length involving predominantly the sigmoid colon. These findings are not significantly changed from prior computed tomography scan 4 days ago. Surgery is following at this time. Patient is scheduled for sigmoid colectomy with colostomy tomorrow morning. He remains hemodynamically stable his temp is 98.8 today. Review of Systems Constitutional: Denied any fatigue denied any fever. Cardio vascular: denied any chest pain, palpitations Gastrointestinal: denied any nausea, vomiting, diarrhea. Reports abdominal pain, improving. Pulmonary: Denied any shortness of breath cough Neurologic denied any new focal deficits All inpatient medications were reviewed and appropriate changes in these medications as dictated in the interval history and assessment and plan. PHYSICAL EXAMINATION: GENERAL: The patient is alert and oriented x3, not in any acute distress. Well developed, well nourished. HEENT: Pupils are round and equally reacting to light. EOMI. No scleral icterus. No conjunctival pallor. Normocephalic, atraumatic. No pharyngeal erythema. No thyromegaly. CARDIOVASCULAR: S1 and S2 present. No murmurs, rubs, or gallops. PULMONARY: Chest is clear to auscultation, no wheezing or crackles. ABDOMEN: Soft, suprapubic and left quadrant abdominal pain, nondistended, normoactive bowel sounds. No palpable organomegaly. MUSCULOSKELETAL: No joint swelling or deformity. EXTREMITIES: No cyanosis, clubbing, or pedal edema. NEUROLOGICAL: Gross neurological examination did not reveal any focal deficits. SKIN: No rashes. Assessment and plan: Assessment -Suprapubic and left quadrant abdominal pain -Sigmoid colon perforation with fecal content outside of the colon. Patient has continued abdominal pain which prompted follow up CT imaging. -Obesity BMI 31.2 -Former smoker GI prophylaxis Full Code Plan Continue antibiotics per surgery. Continue pain management, Toradol has oriented. Patient is scheduled to undergo a sigmoid colectomy, exploratory laparotomy and colostomy formation tomorrow. The impression and plan of care has been dictated by Tiara Crowley Nurse Practitioner as directed. Dr. Lulú MD I have performed a history and physical examination and medical decision making of this patient, discussed the same with the dictator, and agree with the dictators assessment and plan as written, documented as a scribe. Based on total visit time, I have performed more than 50% of this visit. Objective - Vital Signs Vital signs: Vital Signs Temp 98.8 F 03/19/23 14:41 Pulse 87 03/19/23 14:41 Resp 17 03/19/23 14:41 BP 121/85 03/19/23 14:41 Pulse Ox 100 03/19/23 14:41 FiO2 Intake & Output 03/18/23 03/19/23 03/19/23 18:59 06:59 18:59 Output Total 600 Balance -600 Output: Urine 600 Post Void Residual 0 Other: Voiding Method Toilet # Voids 2 - Labs CBC & Chem 7: 03/18/23 05:38 03/17/23 11:54 Labs: Microbiology - Last 24 Hours (Table) 03/15/23 17:15 Blood Culture - Preliminary Blood 03/15/23 17:30 Blood Culture - Preliminary Blood Assessment and Plan Time with Patient: Less than 30
[2023-03-19] MEDS: ONDANSETRON 4 MG/2 ML VIAL IVP PRN (18:45)
[2023-03-19] MEDS: KETOROLAC 15 MG/ML 1 ML VIAL IVP SCH (18:55)
[2023-03-20] MEDS: metroNIDAZOLE-NS PMX 500 MG in SALINE 1 100ML.BAG IVPB SCH ×3 (00:12→16:51)
[2023-03-20] MEDS: KETOROLAC 15 MG/ML 1 ML VIAL IVP SCH ×2 (00:12→06:05)
[2023-03-20] MEDS: HYDROmorphone 1 MG/ML 1 ML SYRINGE IVP PRN ×4 (01:12→20:57)
[2023-03-20] MEDS: LEVOFLOXACIN 500MG-D5W PMX 500 MG in DEXTROSE/WATER 1 100ML.BAG IVPB SCH (08:25)
[2023-03-20] MEDS: PANTOPRAZOLE 40 MG/10 ML VIAL IVP SCH (08:25)
[2023-03-20] MEDS ORDERED: ACETAMINOPHEN TAB 325 MG TAB PO PRN (09:31)
[2023-03-20 10:30] LABS: INR 1.2 (<1.2); Prothrombin Time 11.9 sec (9.0-12.0)
[2023-03-20 10:59] LABS: Basophils # (A) 0.05 X 10*3/uL (0.00-0.10); Basophils % (A) 0.9 %; Eosinophils # (A) 0.02 X 10*3/uL (0.04-0.35); Eosinophils % (A) 0.4 %; HCT 43.9 % (39.6-50.0); HGB 14.5 g/dL (13.0-17.0); Immature Grans, Automated 0.5 %; Lymphocytes # (A) 1.08 X 10*3/uL (0.90-5.00); Lymphocytes % (A) 19.3 %; MCV 90.7 fL (80.0-97.0); Mean Platelet Volume 10.5 fL (9.5-12.2); Monocytes # (A) 0.65 X 10*3/uL (0.20-1.00); Monocytes % (A) 11.6 %; NRBC Per 100 WBC 0 /100 WBCS (0.0-0.0); Neutrophils # (A) 3.76 X 10*3/uL (1.80-7.70); Neutrophils % (A) 67.3 %; Platelet Count 417 X 10*3/uL (140-440); RBC 4.84 X 10*6/uL (4.40-5.60); RDW 11.9 % (11.5-14.5); WBC 5.59 X 10*3/uL (4.50-10.00)
[2023-03-20 12:25] LABS: African American GFR (CKD) 132.9 (60.0-200.0); Anion Gap 16.2 mmol/L (10.00-18.00); BUN/Creat Ratio 4.79 Ratio (12.00-20.00); Blood Urea Nitrogen 4.4 mg/dL (9.0-27.0); Calcium 9.2 mg/dL (8.7-10.3); Carbon Dioxide 23.1 mmol/L (20.0-27.5); Non-African American GFR(CKD) 114.7 (60.0-200.0); Potassium 4.5 mmol/L (3.5-5.5)
[2023-03-20] MEDS ORDERED: LACTATED RINGERS 1,000 ML IV ONE ×4 (12:34→15:59)
[2023-03-20] MEDS ORDERED: ALVIMOPAN 12 MG CAPSULE PO ONE (12:48)
[2023-03-20] MEDS ORDERED: ONDANSETRON 4 MG/2 ML VIAL IVP ONE (12:51)
[2023-03-20] MEDS ORDERED: DEXAMETHASONE SOD PHOSPHATE 4 MG/ML 1 ML VIAL IVP ONE (12:51)
[2023-03-20] MEDS ORDERED: MIDAZOLAM 2 MG/2 ML VIAL IVP ONE (12:58)
[2023-03-20] MEDS ORDERED: fentaNYL (PF) 50 MCG/ML 2 ML AMP IVP ONE (13:03)
[2023-03-20] MEDS ORDERED: HEPARIN SODIUM,PORCINE 5,000 UNIT/ML 1 ML VIAL SQ ONE (13:10)
[2023-03-20] MEDS ORDERED: NEOSTIGMINE 1 MG/ML 10 ML VIAL ONE (13:13)
[2023-03-20] MEDS ORDERED: HYDROmorphone (PF) 1 MG/ML ONE (13:13)
[2023-03-20] MEDS ORDERED: ROCURONIUM 10 MG/ML (5 ML VIAL) IV ONE (13:13)
[2023-03-20] MEDS ORDERED: PROPOFOL 10 MG/ML 20 ML VIAL IV ONE (13:13)
[2023-03-20] MEDS ORDERED: MIDAZOLAM 2 MG/2 ML VIAL ONE (13:13)
[2023-03-20] MEDS ORDERED: SUCCINYLCHOLINE CHLORIDE 200 MG/10 ML VIAL IV ONE (13:13)
[2023-03-20] MEDS ORDERED: fentaNYL (PF) 50 MCG/ML 2 ML AMP ONE (13:13)
[2023-03-20] MEDS ORDERED: LIDOCAINE 2% INJ 20 MG/ML (2 ML VIAL) ONE (13:13)
[2023-03-20] MEDS ORDERED: ONDANSETRON 4 MG/2 ML VIAL ONE (13:13)
[2023-03-20] MEDS ORDERED: GLYCOPYRROLATE 0.2 MG/ML 2 ML VIAL ONE (13:13)
[2023-03-20] MEDS ORDERED: NALOXONE 0.4 MG/ML 1 ML VIAL IV PRN (13:15)
--- NOTE | 2023-03-20 13:15 | P.ANPRN ---
Procedure Note - Anesthesia - Epidural/Spinal Epidural Continuous Time Out Performed: Yes Date of Procedure: 03/20/23 Procedure Start Time: 12:57 Procedure Stop Time: 13:07 Location of Patient: PreOp Indication: Acute Post-Operative Pain, Requested by Surgeon Sedation Type: Sedate with meaningful contact maintained Preparation: Sterile Dressing Position: Sitting Catheter: Indwelling Needle Guage: 18 Blood Aspirated: No Pain Paresthesia on Injection Noted: No Events: Uneventful and Well Tolerated (xylo 1.5% with epi 3cc given with no adverse effects)
[2023-03-20] MEDS ORDERED: METOCLOPRAMIDE 5 MG/ML 2 ML VIAL IVP PRN (14:08)
[2023-03-20] MEDS ORDERED: BENZOCAINE/MENTHOL LOZENG 1 EACH LOZENGE MUCOUS MEM PRN (14:08)
[2023-03-20 14:24] VITALS: BMI 31.1
[2023-03-20] MEDS ORDERED: fentaNYL (PF) 50 MCG/1 ML VIAL MISCELLANE ONE (14:41)
--- NOTE | 2023-03-20 14:46 | P.PN ---
Subjective Progress Note Date: 03/20/23 This is a 27-year-old patient with no family doctor. For one month has been having lower abdominal pain on and off. Pain progressed. Then became constant. With waxing and waning. Started having bloody stools. Finding his mother coax him to come to the hospital. Patient is decreased appetite some weight loss. No fever no chills. Computed tomography scan showing multilevel colitis. Including severe in the sigmoid colon with perforation. In the left pelvis. No well-formed fluid collection. Or abscess was seen. Patient was started on IV Flagyl and IV Levaquin by surgery. 03/17/2023 Patient is evaluated today resting in bed. Continues to report significant abdominal pain mostly suprapubic and radiating through to the back with some abdominal tenderness. General surgery following and abdominal ultrasound ordered due to elevated LFT's. Ultrasound shows hepatic steatosis. LFT's have improved. Lipase was 78. He is on clear liquid diet. Vitals are stable. 03/18/2023 Patient is evaluated today resting in bed. Patient has continued suprapubic discomfort and concern for urinary retention. A post void residual done and negative. Abdominal pain is improving. Patient had a bowel movement and has positive bowel sounds. Continues on clear liquid diet. Continues on IV levofloxacin/metronidazole. White count has normalized down to 8.14. Surgery planning on discharge home tomorrow. 03/19/2023 Patient continues to report suprapubic discomfort. He states that his urinary stream has improved and his daughter having issues with urination. Bladder scan was found to be negative. He was not having any post void residuals. He did have a venous Doppler done which was negative for DVT. His abdominal pelvis CT follow-up today is showing a redemonstration of perforation of the sigmoid colon with feces outside of the bowel lumen treated overall the segment of bowel measures at least 9.4 cm in length involving predominantly the sigmoid colon. These findings are not significantly changed from prior computed tomography scan 4 days ago. Surgery is following at this time. Patient is scheduled for sigmoid colectomy with colostomy tomorrow morning. He remains hemodynamically stable his temp is 98.8 today. 03/20/2023 Patient and family in the room and discussed abdominal CT results. Patient continues to report abdominal pain mostly lower quadrant. He has not had much oral intake in the last 6 days. He does feel hungry. Patient scheduled to undergo exploratory laporotomy sigmoid colectomy and colostomy formation today. He remains on IV levofloxacin and IV metronidazole. Levaquin stable today. His sodium is 139, BUN 4.4, creatinine 0.9. He had a low-grade temperature of 99.9 today. Blood pressure remains stable. Review of Systems Constitutional: Denied any fatigue denied any fever. Cardio vascular: denied any chest pain, palpitations Gastrointestinal: denied any nausea, vomiting, diarrhea. Reports abdominal pain. Pulmonary: Denied any shortness of breath cough Neurologic denied any new focal deficits All inpatient medications were reviewed and appropriate changes in these medications as dictated in the interval history and assessment and plan. PHYSICAL EXAMINATION: GENERAL: The patient is alert and oriented x3, not in any acute distress. Well developed, well nourished. HEENT: Pupils are round and equally reacting to light. EOMI. No scleral icterus. No conjunctival pallor. Normocephalic, atraumatic. No pharyngeal erythema. No thyromegaly. CARDIOVASCULAR: S1 and S2 present. No murmurs, rubs, or gallops. PULMONARY: Chest is clear to auscultation, no wheezing or crackles. ABDOMEN: Soft, suprapubic and left quadrant abdominal pain, nondistended, normoactive bowel sounds. No palpable organomegaly. MUSCULOSKELETAL: No joint swelling or deformity. EXTREMITIES: No cyanosis, clubbing, or pedal edema. NEUROLOGICAL: Gross neurological examination did not reveal any focal deficits. SKIN: No rashes. Assessment and plan: Assessment -Suprapubic and left quadrant abdominal pain -Sigmoid colon perforation with fecal content outside of the colon. Patient has continued abdominal pain which prompted follow up CT imaging. -Obesity BMI 31.2 -Former smoker GI prophylaxis Full Code Plan Continue antibiotics per surgery. Continue with pain management and supportive care. Patient is scheduled to undergo a sigmoid colectomy, exploratory laparoto my and colostomy formation today. Family at the bedside and all questions have been answered. The impression and plan of care has been dictated by Tiara Crowley, Nurse Practitioner as directed. Dr. Lulú MD I have performed a history and physical examination and medical decision making of this patient, discussed the same with the dictator, and agree with the dictators assessment and plan as written, documented as a scribe. Based on total visit time, I have performed more than 50% of this visit. Objective - Vital Signs Vital signs: Vital Signs Temp 98.5 F 03/20/23 12:43 Pulse 88 03/20/23 13:03 Resp 16 03/20/23 13:03 BP 137/90 03/20/23 13:03 Pulse Ox 99 03/20/23 13:03 FiO2 Intake & Output 03/19/23 03/20/23 03/20/23 18:59 06:59 18:59 Intake Total 1000 Output Total 125 Balance 875 Weight 104.326 kg Intake: IV 1000 Output: Urine 100 Estimated Blood Loss 25 Other: Voiding Method Toilet Toilet # Voids 2 3 - Labs CBC & Chem 7: 03/20/23 05:18 03/20/23 05:18 Labs: Abnormal Lab Results - Last 24 Hours (Table) 03/20/23 03/20/23 03/20/23 Range/Units 05:18 05:18 10:02 Eosinophils # 0.02 L (0.04-0.35) X 10*3/uL INR 1.2 H (<1.2) BUN 4.4 L (9.0-27.0) mg/dL BUN/Creatinine Ratio 4.79 L (12.00-20.00) Ratio Glucose 67 L (70-110) mg/dL Microbiology - Last 24 Hours (Table) 03/15/23 17:15 Blood Culture - Preliminary Blood 03/15/23 17:30 Blood Culture - Preliminary Blood Assessment and Plan Time with Patient: Less than 30
[2023-03-20] MEDS: ROPIVACAINE 250 MG, HYDROMORPHONE (PF) 5 MG in SODIUM CHLORIDE 0.9% 200 ML EPIDURAL PRN ×2 (15:06→15:59)
[2023-03-20] MEDS: D5-0.45% NACL WITH KCL 20MEQ/L 1,000 ML IV SCH (16:44)
[2023-03-20] MEDS: SODIUM CHLORIDE 0.9% 1,000 ML IV SCH ×2 (19:38→22:47)
[2023-03-21] MEDS: HYDROmorphone 1 MG/ML 1 ML SYRINGE IVP PRN ×7 (00:06→22:10)
[2023-03-21] MEDS: metroNIDAZOLE-NS PMX 500 MG in SALINE 1 100ML.BAG IVPB SCH ×3 (00:06→16:36)
[2023-03-21] MEDS: D5-0.45% NACL WITH KCL 20MEQ/L 1,000 ML IV SCH ×4 (00:07→23:13)
[2023-03-21] MEDS: HYDROmorphone 0.5 MG/0.5 ML SYRINGE IVP PRN ×6 (04:22→16:36)
[2023-03-21] MEDS: ROPIVACAINE 250 MG, HYDROMORPHONE (PF) 5 MG in SODIUM CHLORIDE 0.9% 200 ML EPIDURAL PRN (07:32)
--- NOTE | 2023-03-21 07:55 | P.PN ---
Progress Note - Text Progress Note Date: 03/21/23 Postop day 1 from laparotomy, epidural catheter inserted for postop pain control. Epidural solution: Ropivacaine 0.1% with Dilaudid 20 mcgs/ml running at 10 mL an hour. Patient pain is well controlled with visual analog score of 6/10. No nausea vomiting, itching, weakness or numbness in the legs or headache reported by the patient. Plan: To increase the epidural infusion to 12 mL per, 5 mL bolus given
[2023-03-21] MEDS: PANTOPRAZOLE 40 MG/10 ML VIAL IVP SCH (09:01)
[2023-03-21 09:23] LABS: Basophils # (A) 0.03 X 10*3/uL (0.00-0.10); Basophils % (A) 0.3 %; Eosinophils # (A) 0 X 10*3/uL (0.04-0.35); Eosinophils % (A) 0 %; HCT 44.4 % (39.6-50.0); HGB 14.7 g/dL (13.0-17.0); Immature Grans, Automated 0.4 %; Lymphocytes # (A) 1.66 X 10*3/uL (0.90-5.00); MCH 29.8 pg (27.0-32.0); MCHC 33.1 g/dL (32.0-37.0); MCV 90.1 fL (80.0-97.0); Mean Platelet Volume 10.6 fL (9.5-12.2); Monocytes # (A) 0.85 X 10*3/uL (0.20-1.00); Monocytes % (A) 8.7 %; NRBC Per 100 WBC 0 /100 WBCS (0.0-0.0); Neutrophils # (A) 7.19 X 10*3/uL (1.80-7.70); Neutrophils % (A) 73.6 %; Platelet Count 412 X 10*3/uL (140-440); RBC 4.93 X 10*6/uL (4.40-5.60); WBC 9.77 X 10*3/uL (4.50-10.00)
[2023-03-21 09:41] LABS: African American GFR (CKD) 140.3 (60.0-200.0); Anion Gap 13.1 mmol/L (10.00-18.00); BUN/Creat Ratio 6.09 Ratio (12.00-20.00); Blood Urea Nitrogen 5.1 mg/dL (9.0-27.0); Calcium 8.9 mg/dL (8.7-10.3); Carbon Dioxide 22.5 mmol/L (20.0-27.5); Non-African American GFR(CKD) 121.1 (60.0-200.0); Potassium 3.9 mmol/L (3.5-5.5)
[2023-03-21] MEDS: LEVOFLOXACIN 500MG-D5W PMX 500 MG in DEXTROSE/WATER 1 100ML.BAG IVPB SCH (10:07)
--- NOTE | 2023-03-21 11:35 | P.PN ---
Subjective Progress Note Date: 03/21/23 CHIEF COMPLAINT: Abdominal pain HISTORY OF PRESENT ILLNESS: Patient is postop day #1 status post sigmoid colectomy with colostomy for sigmoid colitis with perforation. Patient is complaining of abdominal pain. He rates his pain 9 out of 10. Epidural was increased this morning from 10-12. Anesthesia will be notified the patient continues to have pain. He did have a low-grade temp of 99.9. No evidence of tachycardia. WBC is 9.7 Hgb 14.7 platelets 412 sodium 131 potassium 3.9 creatinine 0.8 PHYSICAL EXAM: VITAL SIGNS: Reviewed. GENERAL: Well-developed in no acute distress. HEENT: No sclera icterus. Extraocular movements grossly intact. Moist buccal mucosa. Head is atraumatic, normocephalic. ABDOMEN: Soft. Distended. Prevana wound vac in place. Ostomy with no output. Serosanguineous drainage noted NEUROLOGIC: Alert and oriented. Cranial nerves II through XII grossly intact. ASSESSMENT: 1. Sigmoid colitis with perforation status post sigmoid colectomy with colostomy PLAN: -Continue epidural for pain control. Anesthesia will be notified by nursing staff regarding patient's pain and will await their further recommendations -Continue Ling catheter -Continue IV fluids -Continue clear liquid diet -Continue antibiotics -Encouraged patient to use incentive spirometer -GI prophylaxis Protonix and DVT prophylaxis subcu heparin Physician Pigment Mixer note has been reviewed by physician. Signing provider agrees with the documented findings, assessment, and plan of care. Objective - Vital Signs Vital signs: Vital Signs Temp 99.9 F H 03/21/23 07:35 Pulse 92 03/21/23 07:35 Resp 20 03/21/23 07:35 BP 123/66 03/21/23 07:35 Pulse Ox 98 03/21/23 08:26 FiO2 21 03/21/23 08:26 Intake & Output 03/20/23 03/21/23 03/21/23 18:59 06:59 18:59 Intake Total 1991. Output Total 125 1350 Balance 1867.5 -1350 Weight 104.326 kg Intake: IV 1991. Output: Urine 100 1350 Estimated Blood Loss 25 Other: Voiding Method Toilet Indwelling Catheter - Labs CBC & Chem 7: 03/21/23 05:18 03/21/23 05:18 Labs: Abnormal Lab Results - Last 24 Hours (Table) 03/20/23 03/20/23 03/20/23 Range/Units 05:18 05:18 10:02 Eosinophils # 0.02 L (0.04-0.35) X 10*3/uL INR 1.2 H (<1.2) Sodium (135-145) mmol/L BUN 4.4 L (9.0-27.0) mg/dL BUN/Creatinine Ratio 4.79 L (12.00-20.00) Ratio Glucose 67 L (70-110) mg/dL 03/21/23 03/21/23 Range/Units 05:18 05:18 Eosinophils # 0 L (0.04-0.35) X 10*3/uL INR (<1.2) Sodium 131 L (135-145) mmol/L BUN 5.1 L (9.0-27.0) mg/dL BUN/Creatinine Ratio 6.09 L (12.00-20.00) Ratio Glucose 113 H (70-110) mg/dL Microbiology - Last 24 Hours (Table) 03/15/23 17:15 Blood Culture - Final Blood 03/15/23 17:30 Blood Culture - Final Blood
[2023-03-21] MEDS: ONDANSETRON 4 MG/2 ML VIAL IVP PRN (11:53)
--- NOTE | 2023-03-21 14:51 | P.PN ---
Subjective This is a 27-year-old patient with no family doctor. For one month has been having lower abdominal pain on and off. Pain progressed. Then became constant. With waxing and waning. Started having bloody stools. Finding his mother coax him to come to the hospital. Patient is decreased appetite some weight loss. No fever no chills. Computed tomography scan showing multilevel colitis. Including severe in the sigmoid colon with perforation. In the left pelvis. No well-formed fluid collection. Or abscess was seen. Patient was started on IV Flagyl and IV Levaquin by surgery. 03/17/2023 Patient is evaluated today resting in bed. Continues to report significant abdominal pain mostly suprapubic and radiating through to the back with some abdominal tenderness. General surgery following and abdominal ultrasound ordered due to elevated LFT's. Ultrasound shows hepatic steatosis. LFT's have improved. Lipase was 78. He is on clear liquid diet. Vitals are stable. 03/18/2023 Patient is evaluated today resting in bed. Patient has continued suprapubic discomfort and concern for urinary retention. A post void residual done and negative. Abdominal pain is improving. Patient had a bowel movement and has positive bowel sounds. Continues on clear liquid diet. Continues on IV levofloxacin/metronidazole. White count has normalized down to 8.14. Surgery planning on discharge home tomorrow. 03/19/2023 Patient continues to report suprapubic discomfort. He states that his urinary stream has improved and his daughter having issues with urination. Bladder scan was found to be negative. He was not having any post void residuals. He did have a venous Doppler done which was negative for DVT. His abdominal pelvis CT follow-up today is showing a redemonstration of perforation of the sigmoid colon with feces outside of the bowel lumen treated overall the segment of bowel measures at least 9.4 cm in length involving predominantly the sigmoid colon. These findings are not significantly changed from prior computed tomography scan 4 days ago. Surgery is following at this time. Patient is scheduled for sigmoid colectomy with colostomy tomorrow morning. He remains hemodynamically stable his temp is 98.8 today. 03/20/2023 Patient and family in the room and discussed abdominal CT results. Patient continues to report abdominal pain mostly lower quadrant. He has not had much oral intake in the last 6 days. He does feel hungry. Patient scheduled to undergo exploratory laporotomy sigmoid colectomy and colostomy formation today. He remains on IV levofloxacin and IV metronidazole. Levaquin stable today. His sodium is 139, BUN 4.4, creatinine 0.9. He had a low-grade temperature of 99.9 today. Blood pressure remains stable. 03/21/2023 Patient is still complaining of from abdominal pain, his status post exploratory laparotomy and sigmoid colectomy and colostomy. Today postop day #[address] Surgical wound is closed and dressed in place and looks healing with no discharge. Patient still has low appetite. No vomiting. No bowel movement. Ling catheter and epidural anesthesia still in place. Patient remains on D5 half-normal saline at 125 mL per hour as well as Levaquin and Flagyl. Patient has low-grade temperature 99.9 today but no leukocytosis which is improving Objective - Vital Signs Vital signs: Vital Signs Temp 99.9 F H 03/21/23 07:35 Pulse 142 H 03/21/23 11:55 Resp 20 03/21/23 07:35 BP 123/74 03/21/23 11:55 Pulse Ox 95 03/21/23 11:55 FiO2 21 03/21/23 08:26 Intake & Output 03/20/23 03/21/23 03/21/23 18:59 06:59 18:59 Intake Total 1992.5 Output Total 125 1350 Balance 1867.5 -1350 Weight 104.326 kg Intake: IV 1992.5 Output: Urine 100 1350 Estimated Blood Loss 25 Other: Voiding Method Toilet Indwelling Catheter - Exam -GENERAL: The patient is alert and oriented x3, not in any acute distress. Obese HEENT: Pupils are round and equally reacting to light. EOMI. No scleral icterus. No conjunctival pallor. Normocephalic, atraumatic. No pharyngeal erythema. No thyromegaly. CARDIOVASCULAR: S1 and S2 present. No murmurs, rubs, or gallops. PULMONARY: Chest is clear to auscultation, no wheezing or crackles. ABDOMEN: Soft, nontender, nondistended, normoactive bowel sounds. No palpable organomegaly. Vertical surgical wound is healing, closed. Left lower lobe colostomy back MUSCULOSKELETAL: No joint swelling or deformity. EXTREMITIES: No cyanosis, clubbing, or pedal edema. NEUROLOGICAL: Gross neurological examination did not reveal any focal deficits. SKIN: No rashes. no petechiae. - Labs CBC & Chem 7: 03/21/23 05:18 03/21/23 05:18 Labs: Abnormal Lab Results - Last 24 Hours (Table) 03/21/23 03/21/23 Range/Units 05:18 05:18 Eosinophils # 0 L (0.04-0.35) X 10*3/uL Sodium 131 L (135-145) mmol/L BUN 5.1 L (9.0-27.0) mg/dL BUN/Creatinine Ratio 6.09 L (12.00-20.00) Ratio Glucose 113 H (70-110) mg/dL Microbiology - Last 24 Hours (Table) 03/15/23 17:15 Blood Culture - Final Blood 03/15/23 17:30 Blood Culture - Final Blood Assessment and Plan Assessment: -Sigmoid colon diverticulitis with perforation with fecal content outside of the colon. Status post except with her laparotomy, sigmoid colectomy and colostomy -Obesity BMI 31.2 -Former smoker Plan: Continue with Flagyl and Levaquin Continue with IV fluid Surgery consult Advance diet her surgery team Labs and medication were reviewed.. Continue same treatment. Continue with symptomatic treatment. Resume home medication. Monitor labs and vitals. DVT and GI prophylaxis. Further recommendations as per clinical course of the patient DVT prophylaxis: Subcutaneous heparin GI Prophylaxis: Ppi Prognosis is guarded
--- NOTE | 2023-03-21 17:49 | P.PN ---
Progress Note - Text Progress Note Date: 03/21/23 Pt is complaining of abdominal pain. A 10 mls bolus through the epidural catheter of Ropivacaine 0.1% with Dilaudid 20 mcg/ml was given. Pt has mild fever(99.9), we may need to remove the epidural catheter if fever continues to avoid epidural space infection.
--- NOTE | 2023-03-21 20:05 | P.PN ---
Progress Note - Text Progress Note Date: 03/21/23 Pt was seen on the floor, still complaining of severe pain.5 mls of Lidocaine 2% were given through the epidural catheter.There was no improvement in his pain. Decision was made to remove the epidural catheter .Pt still has low grade fever. The epidural catheter was removed with intact tip.Skin entry site shows no signs of infection. Pain will be managed by the surgical team.
[2023-03-21] MEDS: ACETAMINOPHEN IV (For NPO) 1,000 MG in EMPTY BAG 1 BAG IVPB SCH (20:54)
[2023-03-21] MEDS: HEPARIN SODIUM,PORCINE/PF 5,000 UNIT/0.5 ML SYRINGE SQ SCH (20:55)
[2023-03-21] MEDS: KETOROLAC 15 MG/ML 1 ML VIAL IVP SCH (20:55)
[2023-03-21] MEDS ORDERED: SODIUM CHLORIDE 0.9% 500 ML 500 ML IV ONE (21:53)
[2023-03-22] MEDS: HYDROmorphone 1 MG/ML 1 ML SYRINGE IVP PRN ×10 (00:18→22:33)
[2023-03-22] MEDS: metroNIDAZOLE-NS PMX 500 MG in SALINE 1 100ML.BAG IVPB SCH ×3 (00:19→15:40)
[2023-03-22] MEDS: KETOROLAC 15 MG/ML 1 ML VIAL IVP SCH ×4 (03:27→21:17)
[2023-03-22] MEDS: ACETAMINOPHEN IV (For NPO) 1,000 MG in EMPTY BAG 1 BAG IVPB SCH ×3 (03:27→15:28)
[2023-03-22] MEDS: PANTOPRAZOLE 40 MG/10 ML VIAL IVP SCH (08:28)
[2023-03-22] MEDS: HEPARIN SODIUM,PORCINE/PF 5,000 UNIT/0.5 ML SYRINGE SQ SCH ×2 (09:00→21:17)
[2023-03-22] MEDS: D5-0.45% NACL WITH KCL 20MEQ/L 1,000 ML IV SCH ×3 (09:00→22:33)
[2023-03-22] MEDS: LEVOFLOXACIN 500MG-D5W PMX 500 MG in DEXTROSE/WATER 1 100ML.BAG IVPB SCH (09:00)
[2023-03-22] MEDS ORDERED: SODIUM CHLORIDE 0.9% 500 ML 500 ML IV ONE (09:58)
[2023-03-22 10:23] LABS: Basophils % (A) 0 %; Eosinophils % (A) 0 %; HGB 14.6 gm/dL (13.0-17.5); Lymphocytes # (A) 1.9 k/uL (1.0-4.8); Lymphocytes % (A) 11 %; MCH 29.5 pg (25.0-35.0); MCHC 32.3 g/dL (31.0-37.0); MCV 91.3 fL (80.0-100.0); Monocytes # (A) 0.9 k/uL (0-1.0); Monocytes % (A) 5 %; Neutrophils # (A) 13.9 k/uL (1.3-7.7); Neutrophils % (A) 82 %; Platelet Count 303 k/uL (150-450); RBC 4.93 m/uL (4.30-5.90); RDW 12.1 % (11.5-15.5); WBC 16.9 k/uL (3.8-10.6)
[2023-03-22 10:24] LABS: African American GFR (CKD) >90 (>60 ml/min/1.73 sqM); Anion Gap 10 mmol/L; Blood Urea Nitrogen 8 mg/dL (9-20); Calcium 8.5 mg/dL (8.4-10.2); Carbon Dioxide 29 mmol/L (22-30); Chloride 95 mmol/L (98-107); Glucose 114 mg/dL (74-99); Non-African American GFR(CKD) >90 (>60 ml/min/1.73 sqM); Potassium 4.6 mmol/L (3.5-5.1); Sodium 134 mmol/L (137-145)
--- NOTE | 2023-03-22 13:58 | P.PN ---
Subjective Progress Note Date: 03/22/23 CHIEF COMPLAINT: Abdominal pain HISTORY OF PRESENT ILLNESS: Patient is postop day #2 status post sigmoid colectomy with colostomy for sigmoid colitis with perforation. Patient's epidural was pulled yesterday due to not functioning appropriately. Ling catheter discontinued during the night. His urine output has been low. He did have a fever during the night of 101.2 and has been mildly tachycardic. He did receive 1 L fluid bolus during the evening. Patient does complain of abdominal pain. He rates at 9 out of 10. IV Tylenol and IV Toradol were also added during the evening. Dilaudid was increased to 1 mg every 2 hours for pain No bowel function yet. He is currently afebrile. WBC is elevated 16.9 Hgb 14.6 platelets 303 sodium is 134 creatinine 0.76 Patient seen and examined with Dr. Sarabia PHYSICAL EXAM: VITAL SIGNS: Reviewed. GENERAL: Well-developed in no acute distress. HEENT: No sclera icterus. Extraocular movements grossly intact. Moist buccal mucosa. Head is atraumatic, normocephalic. ABDOMEN: Soft. Distended. Prevana wound vac in place. Ostomy with no output. Stoma dark red. Serosanguineous drainage noted NEUROLOGIC: Alert and oriented. Cranial nerves II through XII grossly intact. ASSESSMENT: 1. Sigmoid colitis with perforation status post sigmoid colectomy with colostomy PLAN: -500ml fluid bolus given for low urine output -Continue pain management -Continue monitor urine output -Encouraged patient ambulate -Continue IV fluids -Continue clear liquid diet -Continue antibiotics -Repeat CBC in a.m. -Encouraged patient to use incentive spirometer -GI prophylaxis Protonix and DVT prophylaxis subcu heparin Physician Chief Wharfinger note has been reviewed by physician. Signing provider agrees with the documented findings, assessment, and plan of care. Objective - Vital Signs Vital signs: Vital Signs Temp 99.2 F 03/22/23 13:46 Pulse 88 03/22/23 13:46 Resp 19 03/22/23 13:46 BP 102/66 03/22/23 13:46 Pulse Ox 97 03/22/23 13:46 FiO2 21 03/21/23 08:26 Intake & Output 03/21/23 03/22/23 03/22/23 18:59 06:59 18:59 Intake Total 143.6 Output Total 800 Balance -656.4 Weight 104.326 kg Intake: Intake, IV Titration 143.6 Amount Ropivacaine 250 mg 143.6 Hydromorphone (Pf) 5 mg In Sodium Chloride 0.9% 200 ml @ Per Protocol EPIDURAL .Q0M PRN Rx#: [id number] Output: Urine 800 Uretheral (Ling) 800 Other: Voiding Method Indwelling Catheter Indwelling Catheter - Labs CBC & Chem 7: 03/22/23 09:06 03/22/23 09:06 Labs: Abnormal Lab Results - Last 24 Hours (Table) 03/22/23 03/22/23 Range/Units 09:06 09:06 WBC 16.9 H (3.8-10.6) k/uL Neutrophils # 13.9 H (1.3-7.7) k/uL Sodium 134 L (137-145) mmol/L Chloride 95 L (98-107) mmol/L BUN 8 L (9-20) mg/dL Glucose 114 H (74-99) mg/dL
[2023-03-22] MEDS: ONDANSETRON 4 MG/2 ML VIAL IVP PRN (15:27)
--- NOTE | 2023-03-22 18:53 | P.PN ---
Subjective This is a 27-year-old patient with no family doctor. For one month has been having lower abdominal pain on and off. Pain progressed. Then became constant. With waxing and waning. Started having bloody stools. Finding his mother coax him to come to the hospital. Patient is decreased appetite some weight loss. No fever no chills. Computed tomography scan showing multilevel colitis. Including severe in the sigmoid colon with perforation. In the left pelvis. No well-formed fluid collection. Or abscess was seen. Patient was started on IV Flagyl and IV Levaquin by surgery. 03/17/2023 Patient is evaluated today resting in bed. Continues to report significant abdominal pain mostly suprapubic and radiating through to the back with some abdominal tenderness. General surgery following and abdominal ultrasound ordered due to elevated LFT's. Ultrasound shows hepatic steatosis. LFT's have improved. Lipase was 78. He is on clear liquid diet. Vitals are stable. 03/18/2023 Patient is evaluated today resting in bed. Patient has continued suprapubic discomfort and concern for urinary retention. A post void residual done and negative. Abdominal pain is improving. Patient had a bowel movement and has positive bowel sounds. Continues on clear liquid diet. Continues on IV levofloxacin/metronidazole. White count has normalized down to 8.14. Surgery planning on discharge home tomorrow. 03/19/2023 Patient continues to report suprapubic discomfort. He states that his urinary stream has improved and his daughter having issues with urination. Bladder scan was found to be negative. He was not having any post void residuals. He did have a venous Doppler done which was negative for DVT. His abdominal pelvis CT follow-up today is showing a redemonstration of perforation of the sigmoid colon with feces outside of the bowel lumen treated overall the segment of bowel measures at least 9.4 cm in length involving predominantly the sigmoid colon. These findings are not significantly changed from prior computed tomography scan 4 days ago. Surgery is following at this time. Patient is scheduled for sigmoid colectomy with colostomy tomorrow morning. He remains hemodynamically stable his temp is 98.8 today. 03/20/2023 Patient and family in the room and discussed abdominal CT results. Patient continues to report abdominal pain mostly lower quadrant. He has not had much oral intake in the last 6 days. He does feel hungry. Patient scheduled to undergo exploratory laporotomy sigmoid colectomy and colostomy formation today. He remains on IV levofloxacin and IV metronidazole. Levaquin stable today. His sodium is 139, BUN 4.4, creatinine 0.9. He had a low-grade temperature of 99.9 today. Blood pressure remains stable. 03/21/2023 Patient is still complaining of from abdominal pain, his status post exploratory laparotomy and sigmoid colectomy and colostomy. Today postop day #[address] Surgical wound is closed and dressed in place and looks healing with no discharge. Patient still has low appetite. No vomiting. No bowel movement. Ling catheter and epidural anesthesia still in place. Patient remains on D5 half-normal saline at 125 mL per hour as well as Levaquin and Flagyl. Patient has low-grade temperature 99.9 today but no leukocytosis which is improving 03/22/2023 patient is a status post exploratory laparotomy and sigmoid colectomy and colostomy. Postop day #2 Patient is not eating much, no bowel movement. Patient still complaining of from abdominal pain and his pain medication were upgraded into Dilaudid 1 mg every 2 hours. Also patient is an Toradol area Received 1 L of normal saline for low urine output Patient developed a fever of 101.2. Also he has more leukocytosis today 16.9k . Blood culture showing no growth He is also on D5 half-normal saline at 1 25 mL/h, he is on Levaquin and Flagyl Objective - Vital Signs Vital signs: Vital Signs Temp 98.9 F 03/22/23 07:28 Pulse 85 03/22/23 07:28 Resp 18 03/22/23 07:28 BP 103/65 03/22/23 07:28 Pulse Ox 97 03/22/23 07:28 FiO2 21 03/21/23 08:26 Intake & Output 03/21/23 03/22/23 03/22/23 18:59 06:59 18:59 Intake Total 143.6 Output Total 800 Balance -656.4 Weight 104.326 kg Intake: Intake, IV Titration 143.6 Amount Ropivacaine 250 mg 143.6 Hydromorphone (Pf) 5 mg In Sodium Chloride 0.9% 200 ml @ Per Protocol EPIDURAL .Q0M PRN Rx#: [id number] Output: Urine 800 Uretheral (Ling) 800 Other: Voiding Method Indwelling Catheter Indwelling Catheter - Exam -GENERAL: The patient is alert and oriented x3, not in any acute distress. Obese HEENT: Pupils are round and equally reacting to light. EOMI. No scleral icterus. No conjunctival pallor. Normocephalic, atraumatic. No pharyngeal erythema. No thyromegaly. CARDIOVASCULAR: S1 and S2 present. No murmurs, rubs, or gallops. PULMONARY: Chest is clear to auscultation, no wheezing or crackles. ABDOMEN: Soft, nontender, nondistended, normoactive bowel sounds. No palpable organomegaly. Vertical surgical wound is healing, closed. Left lower lobe colostomy back MUSCULOSKELETAL: No joint swelling or deformity. EXTREMITIES: No cyanosis, clubbing, or pedal edema. NEUROLOGICAL: Gross neurological examination did not reveal any focal deficits. SKIN: No rashes. no petechiae. - Labs CBC & Chem 7: 03/22/23 09:06 03/22/23 09:06 Labs: Abnormal Lab Results - Last 24 Hours (Table) 03/22/23 03/22/23 Range/Units 09:06 09:06 WBC 16.9 H (3.8-10.6) k/uL Neutrophils # 13.9 H (1.3-7.7) k/uL Sodium 134 L (137-145) mmol/L Chloride 95 L (98-107) mmol/L BUN 8 L (9-20) mg/dL Glucose 114 H (74-99) mg/dL Microbiology - Last 24 Hours (Table) 03/15/23 17:15 Blood Culture - Final Blood 03/15/23 17:30 Blood Culture - Final Blood Assessment and Plan Assessment: -Sigmoid colon diverticulitis with perforation with fecal content outside of the colon. Status post except with her laparotomy, sigmoid colectomy and colostomy -Obesity BMI 31.2 -Former smoker Plan: Continue with Flagyl and Levaquin Continue with IV fluid Surgery consult [facility] diet her surgery team, currently on liquid diet Pain management Labs and medication were reviewed.. Continue same treatment. Continue with symptomatic treatment. Resume home medication. Monitor labs and vitals. DVT and GI prophylaxis. Further recommendations as per clinical course of the patient DVT prophylaxis: Subcutaneous heparin GI Prophylaxis: Ppi Prognosis is guarded
[2023-03-22] MEDS ORDERED: ACETAMINOPHEN IV (For NPO) 1,000 MG in EMPTY BAG 1 BAG IVPB SCH (21:00)
[2023-03-22] MEDS ORDERED: KETOROLAC 15 MG/ML 1 ML VIAL IVP SCH (21:00)
[2023-03-22] MEDS: MELATONIN 3 MG TABLET PO SCH (21:18)
[2023-03-23] MEDS: metroNIDAZOLE-NS PMX 500 MG in SALINE 1 100ML.BAG IVPB SCH ×4 (00:21→23:06)
[2023-03-23] MEDS: KETOROLAC 15 MG/ML 1 ML VIAL IVP SCH ×3 (03:19→16:08)
[2023-03-23] MEDS: HYDROmorphone 1 MG/ML 1 ML SYRINGE IVP PRN ×5 (03:20→17:46)
[2023-03-23] MEDS: D5-0.45% NACL WITH KCL 20MEQ/L 1,000 ML IV SCH ×2 (06:48→14:18)
[2023-03-23] MEDS: PANTOPRAZOLE 40 MG/10 ML VIAL IVP SCH (08:10)
[2023-03-23] MEDS: HEPARIN SODIUM,PORCINE/PF 5,000 UNIT/0.5 ML SYRINGE SQ SCH ×2 (08:10→20:49)
[2023-03-23] MEDS: LEVOFLOXACIN 500MG-D5W PMX 500 MG in DEXTROSE/WATER 1 100ML.BAG IVPB SCH (08:11)
[2023-03-23 09:31] LABS: African American GFR (CKD) 152.3 (60.0-200.0); Anion Gap 9.7 mmol/L (10.00-18.00); BUN/Creat Ratio 7.8 Ratio (12.00-20.00); Blood Urea Nitrogen 5.3 mg/dL (9.0-27.0); Calcium 8.5 mg/dL (8.7-10.3); Non-African American GFR(CKD) 131.4 (60.0-200.0); Potassium 4.2 mmol/L (3.5-5.5)
[2023-03-23] MEDS: ONDANSETRON 4 MG/2 ML VIAL IVP PRN (10:04)
[2023-03-23 10:51] LABS: Basophils # (A) 0.02 X 10*3/uL (0.00-0.10); Basophils % (A) 0.1 %; Eosinophils # (A) 0.03 X 10*3/uL (0.04-0.35); Eosinophils % (A) 0.2 %; HCT 38.9 % (39.6-50.0); Immature Grans, Automated 0.6 %; Lymphocytes # (A) 0.96 X 10*3/uL (0.90-5.00); Lymphocytes % (A) 6.4 %; MCHC 33.4 g/dL (32.0-37.0); MCV 89.8 fL (80.0-97.0); Mean Platelet Volume 10.8 fL (9.5-12.2); Monocytes # (A) 0.99 X 10*3/uL (0.20-1.00); Monocytes % (A) 6.6 %; NRBC Per 100 WBC 0 /100 WBCS (0.0-0.0); Neutrophils # (A) 12.81 X 10*3/uL (1.80-7.70); Neutrophils % (A) 86.1 %; Platelet Count 259 X 10*3/uL (140-440); RBC 4.33 X 10*6/uL (4.40-5.60)
[2023-03-23] MEDS: ACETAMINOPHEN IV (For NPO) 1,000 MG in EMPTY BAG 1 BAG IVPB SCH ×3 (12:19→23:06)
--- NOTE | 2023-03-23 13:59 | P.PN ---
Subjective Progress Note Date: 03/23/23 CHIEF COMPLAINT: Abdominal pain HISTORY OF PRESENT ILLNESS: Patient is postop day #3 status post sigmoid colectomy with colostomy for sigmoid colitis with perforation. Patient continues to complain of pain. He is still rating his pain about 9 out of 10. Problem reports the pain is about the same has not gotten worse. He has been having nausea. No output through the ostomy. Urine output has shown improvement. No further fevers. WBC is down from 16-14 Hgb 13 platelets 259 sodium 136 potassium 4.2 creatinine 0.7. Patient complaining is unable to sleep. Melatonin was added yesterday. Patient seen and examined with Dr. Sarabia PHYSICAL EXAM: VITAL SIGNS: Reviewed. GENERAL: Well-developed in no acute distress. HEENT: No sclera icterus. Extraocular movements grossly intact. Moist buccal mucosa. Head is atraumatic, normocephalic. ABDOMEN: Soft. Distended. Tenderness with palpation. Prevana wound vac in place. Ostomy with no output. Stoma dark red. Serosanguineous drainage and greenish drainage noted in ostomy bag NEUROLOGIC: Alert and oriented. Cranial nerves II through XII grossly intact. ASSESSMENT: 1. Sigmoid colitis with perforation status post sigmoid colectomy with colostomy PLAN: -Ativan 1 mg oral at bedtime ordered for sleep -Reorder IV Tylenol -Continue pain management -Continue IV fluids -Continue clear liquid diet -Add Ensure clear for protein supplement -Continue antibiotics -Repeat CBC in a.m. -Encouraged patient to use incentive spirometer -Encouraged patient to increase activity level -GI prophylaxis Protonix and DVT prophylaxis subcu heparin Physician Continuous Pickling [employer] Pick[employer] Helper note has been reviewed by physician. Signing provider agrees with the documented findings, assessment, and plan of care. Objective - Vital Signs Vital signs: Vital Signs Temp 98.8 F 03/23/23 07:18 Pulse 81 03/23/23 07:18 Resp 17 03/23/23 07:18 BP 117/73 03/23/23 07:18 Pulse Ox 96 03/23/23 07:18 FiO2 21 03/21/23 08:26 Intake & Output 03/22/23 03/23/23 03/23/23 18:59 06:59 18:59 Intake Total 2340 Output Total 475 900 Balance -475 1440 Weight 104.326 kg 104.326 kg Intake: Intake, IV Titration 1500 Amount D5-0.45% NaCl with KCl 1500 20Meq/l 1,000 ml @ 125 mls/hr IV .Q8H [facility] Rx#: [id number] Oral 840 Output: Urine 475 900 Other: Voiding Method Urinal - Labs CBC & Chem 7: 03/23/23 04:01 03/23/23 04:01 Labs: Abnormal Lab Results - Last 24 Hours (Table) 03/23/23 03/23/23 Range/Units 04:01 04:01 WBC 14.90 H (4.50-10.00) X 10*3/uL RBC 4.33 L (4.40-5.60) X 10*6/uL Hct 38.9 L (39.6-50.0) % Immature Gran # 0.09 H (0.00-0.04) X 10*3/uL Neutrophils # 12.81 H (1.80-7.70) X 10*3/uL Eosinophils # 0.03 L (0.04-0.35) X 10*3/uL Anion Gap 9.70 L (10.00-18.00) mmol/L BUN 5.3 L (9.0-27.0) mg/dL BUN/Creatinine Ratio 7.80 L (12.00-20.00) Ratio Calcium 8.5 L (8.7-10.3) mg/dL
--- NOTE | 2023-03-23 16:24 | P.PN ---
Subjective This is a 27-year-old patient with no family doctor. For one month has been having lower abdominal pain on and off. Pain progressed. Then became constant. With waxing and waning. Started having bloody stools. Finding his mother coax him to come to the hospital. Patient is decreased appetite some weight loss. No fever no chills. Computed tomography scan showing multilevel colitis. Including severe in the sigmoid colon with perforation. In the left pelvis. No well-formed fluid collection. Or abscess was seen. Patient was started on IV Flagyl and IV Levaquin by surgery. 03/17/2023 Patient is evaluated today resting in bed. Continues to report significant abdominal pain mostly suprapubic and radiating through to the back with some abdominal tenderness. General surgery following and abdominal ultrasound ordered due to elevated LFT's. Ultrasound shows hepatic steatosis. LFT's have improved. Lipase was 78. He is on clear liquid diet. Vitals are stable. 03/18/2023 Patient is evaluated today resting in bed. Patient has continued suprapubic discomfort and concern for urinary retention. A post void residual done and negative. Abdominal pain is improving. Patient had a bowel movement and has positive bowel sounds. Continues on clear liquid diet. Continues on IV levofloxacin/metronidazole. White count has normalized down to 8.14. Surgery planning on discharge home tomorrow. 03/19/2023 Patient continues to report suprapubic discomfort. He states that his urinary stream has improved and his daughter having issues with urination. Bladder scan was found to be negative. He was not having any post void residuals. He did have a venous Doppler done which was negative for DVT. His abdominal pelvis CT follow-up today is showing a redemonstration of perforation of the sigmoid colon with feces outside of the bowel lumen treated overall the segment of bowel measures at least 9.4 cm in length involving predominantly the sigmoid colon. These findings are not significantly changed from prior computed tomography scan 4 days ago. Surgery is following at this time. Patient is scheduled for sigmoid colectomy with colostomy tomorrow morning. He remains hemodynamically stable his temp is 98.8 today. 03/20/2023 Patient and family in the room and discussed abdominal CT results. Patient continues to report abdominal pain mostly lower quadrant. He has not had much oral intake in the last 6 days. He does feel hungry. Patient scheduled to undergo exploratory laporotomy sigmoid colectomy and colostomy formation today. He remains on IV levofloxacin and IV metronidazole. Levaquin stable today. His sodium is 139, BUN 4.4, creatinine 0.9. He had a low-grade temperature of 99.9 today. Blood pressure remains stable. 03/21/2023 Patient is still complaining of from abdominal pain, his status post exploratory laparotomy and sigmoid colectomy and colostomy. Today postop day #[address] Surgical wound is closed and dressed in place and looks healing with no discharge. Patient still has low appetite. No vomiting. No bowel movement. Ling catheter and epidural anesthesia still in place. Patient remains on D5 half-normal saline at 125 mL per hour as well as Levaquin and Flagyl. Patient has low-grade temperature 99.9 today but no leukocytosis which is improving 03/22/2023 patient is a status post exploratory laparotomy and sigmoid colectomy and colostomy. Postop day #2 Patient is not eating much, no bowel movement. Patient still complaining of from abdominal pain and his pain medication were upgraded into Dilaudid 1 mg every 2 hours. Also patient is an Toradol area Received 1 L of normal saline for low urine output Patient developed a fever of 101.2. Also he has more leukocytosis today 16.9k . Blood culture showing no growth He is also on D5 half-normal saline at 1 25 mL/h, he is on Levaquin and Flagyl 03/23/2023 Patient still complaining of from abdominal pain and still no bowel movement, is gradually tolerating liquid diet However patient looks more relaxed less stressful than yesterday after increasing his pain medication. Vitals and labs look stable Patient remains on Levaquin and Flagyl and D5 half-normal saline at 1 25 mL/h Objective - Vital Signs Vital signs: Vital Signs Temp 98.8 F 03/23/23 07:18 Pulse 81 03/23/23 07:18 Resp 17 03/23/23 07:18 BP 117/73 03/23/23 07:18 Pulse Ox 96 03/23/23 07:18 FiO2 21 03/21/23 08:26 Intake & Output 03/22/23 03/23/23 03/23/23 18:59 06:59 18:59 Intake Total 2340 118 Output Total 475 900 100 Balance -475 1440 18 Weight 104.326 kg 104.326 kg Intake: Intake, IV Titration 1500 Amount D5-0.45% NaCl with KCl 1500 20Meq/l 1,000 ml @ 125 mls/hr IV .Q8H [facility] Rx#: [id number] Oral 840 118 Output: Urine 475 900 Stool 100 Other: Voiding Method Urinal - Exam -GENERAL: The patient is alert and oriented x3, not in any acute distress. Obese HEENT: Pupils are round and equally reacting to light. EOMI. No scleral icterus. No conjunctival pallor. Normocephalic, atraumatic. No pharyngeal erythema. No thyromegaly. CARDIOVASCULAR: S1 and S2 present. No murmurs, rubs, or gallops. PULMONARY: Chest is clear to auscultation, no wheezing or crackles. ABDOMEN: Soft, nontender, nondistended, normoactive bowel sounds. No palpable organomegaly. Vertical surgical wound is healing, closed. Left lower lobe colostomy back MUSCULOSKELETAL: No joint swelling or deformity. EXTREMITIES: No cyanosis, clubbing, or pedal edema. NEUROLOGICAL: Gross neurological examination did not reveal any focal deficits. SKIN: No rashes. no petechiae. - Labs CBC & Chem 7: 03/23/23 04:01 03/23/23 04:01 Labs: Abnormal Lab Results - Last 24 Hours (Table) 03/23/23 03/23/23 Range/Units 04:01 04:01 WBC 14.90 H (4.50-10.00) X 10*3/uL RBC 4.33 L (4.40-5.60) X 10*6/uL Hct 38.9 L (39.6-50.0) % Immature Gran # 0.09 H (0.00-0.04) X 10*3/uL Neutrophils # 12.81 H (1.80-7.70) X 10*3/uL Eosinophils # 0.03 L (0.04-0.35) X 10*3/uL Anion Gap 9.70 L (10.00-18.00) mmol/L BUN 5.3 L (9.0-27.0) mg/dL BUN/Creatinine Ratio 7.80 L (12.00-20.00) Ratio Calcium 8.5 L (8.7-10.3) mg/dL Assessment and Plan Assessment: -Sigmoid colon diverticulitis with perforation with fecal content outside of the colon. Status post except with her laparotomy, sigmoid colectomy and colostomy -Obesity BMI 31.2 -Former smoker Plan: Continue with Flagyl and Levaquin Continue with IV fluid Surgery consult [facility] her surgery team, currently on liquid diet Pain management Labs and medication were reviewed.. Continue same treatment. Continue with symptomatic treatment. Resume home medication. Monitor labs and vitals. DVT and GI prophylaxis. Further recommendations as per clinical course of the patient DVT prophylaxis: Subcutaneous heparin GI Prophylaxis: Ppi Prognosis is guarded
[2023-03-23] MEDS: LORazepam 1 MG TAB PO SCH (20:49)
[2023-03-23] MEDS: MELATONIN 3 MG TABLET PO SCH (20:49)
[2023-03-24] MEDS: D5-0.45% NACL WITH KCL 20MEQ/L 1,000 ML IV SCH ×4 (00:06→22:10)
[2023-03-24] MEDS: HYDROmorphone 1 MG/ML 1 ML SYRINGE IVP PRN ×5 (04:39→22:07)
[2023-03-24] MEDS: ACETAMINOPHEN IV (For NPO) 1,000 MG in EMPTY BAG 1 BAG IVPB SCH (04:47)
--- NOTE | 2023-03-24 09:27 | P.PN ---
Progress Note - Text Progress Note Date: 03/24/23 Patient has complaints of abdominal pain. He states his pain is a 710. On exam vital signs are stable. Abdomen soft. Incision site is clean dry intact. Colostomy has some limited function. Status post sigmoidectomy for sigmoid colon perforation. Patient will K receive supportive care. Hopefully his pain control will improve the next 24-48 hours.
[2023-03-24] MEDS: HEPARIN SODIUM,PORCINE/PF 5,000 UNIT/0.5 ML SYRINGE SQ SCH ×2 (09:43→20:12)
[2023-03-24] MEDS: PANTOPRAZOLE 40 MG/10 ML VIAL IVP SCH (09:44)
[2023-03-24] MEDS: metroNIDAZOLE-NS PMX 500 MG in SALINE 1 100ML.BAG IVPB SCH ×3 (09:44→23:34)
[2023-03-24] MEDS: ONDANSETRON 4 MG/2 ML VIAL IVP PRN (09:47)
[2023-03-24 10:15] LABS: Basophils # (A) 0.02 X 10*3/uL (0.00-0.10); Basophils % (A) 0.2 %; Eosinophils # (A) 0.05 X 10*3/uL (0.04-0.35); Eosinophils % (A) 0.4 %; HCT 38.6 % (39.6-50.0); HGB 12.6 g/dL (13.0-17.0); Immature Grans, Automated 0.6 %; Lymphocytes # (A) 1.22 X 10*3/uL (0.90-5.00); Lymphocytes % (A) 10.3 %; MCH 29.5 pg (27.0-32.0); MCHC 32.6 g/dL (32.0-37.0); MCV 90.4 fL (80.0-97.0); Mean Platelet Volume 11.2 fL (9.5-12.2); Monocytes # (A) 0.93 X 10*3/uL (0.20-1.00); Monocytes % (A) 7.9 %; NRBC Per 100 WBC 0 /100 WBCS (0.0-0.0); Neutrophils # (A) 9.54 X 10*3/uL (1.80-7.70); Neutrophils % (A) 80.6 %; Platelet Count 287 X 10*3/uL (140-440); RBC 4.27 X 10*6/uL (4.40-5.60); RDW 12.4 % (11.5-14.5); WBC 11.83 X 10*3/uL (4.50-10.00)
[2023-03-24] MEDS: LEVOFLOXACIN 500MG-D5W PMX 500 MG in DEXTROSE/WATER 1 100ML.BAG IVPB SCH (11:30)
--- NOTE | 2023-03-24 20:45 | P.PN ---
Progress Note - Text Progress Note Date: 03/24/23 Hospital course: This is a 27-year-old patient with no family doctor. For one month has been hav ing lower abdominal pain on and off. Pain progressed. Then became constant. With waxing and waning. Started having bloody stools. Finding his mother coax him to come to the hospital. Patient is decreased appetite some weight loss. No fever no chills. Computed tomography scan showing multilevel colitis. Including severe in the sigmoid colon with perforation. In the left pelvis. No well-formed fluid collection. Or abscess was seen. Patient was started on IV Flagyl and IV Levaquin by surgery. 03/17/2023 Patient is evaluated today resting in bed. Continues to report significant abdom inal pain mostly suprapubic and radiating through to the back with some abdominal tenderness. General surgery following and abdominal ultrasound ordered due to elevated LFT's. Ultrasound shows hepatic steatosis. LFT's have improved. Lipase was 78. He is on clear liquid diet. Vitals are stable. 03/18/2023 Patient is evaluated today resting in bed. Patient has continued suprapubic discomfort and concern for urinary retention. A post void residual done and negative. Abdominal pain is improving. Patient had a bowel movement and has positive bowel sounds. Continues on clear liquid diet. Continues on IV levofloxacin/metronidazole. White count has normalized down to 8.14. Surgery planning on discharge home tomorrow. 03/19/2023 Patient continues to report suprapubic discomfort. He states that his urinary stream has improved and his daughter having issues with urination. Bladder scan was found to be negative. He was not having any post void residuals. He did have a venous Doppler done which was negative for DVT. His abdominal pelvis CT follow-up today is showing a redemonstration of perforation of the sigmoid colon with feces outside of the bowel lumen treated overall the segment of bowel measures at least 9.4 cm in length involving predominantly the sigmoid colon. These findings are not significantly changed from prior computed tomography scan 4 days ago. Surgery is following at this time. Patient is scheduled for sigmoid colectomy with colostomy tomorrow morning. He remains hemodynamically stable his temp is 98.8 today. 03/20/2023 Patient and family in the room and discussed abdominal CT results. Patient continues to report abdominal pain mostly lower quadrant. He has not had much oral intake in the last 6 days. He does feel hungry. Patient scheduled to undergo exploratory laporotomy sigmoid colectomy and colostomy formation today. He remains on IV levofloxacin and IV metronidazole. Levaquin stable today. His sodium is 139, BUN 4.4, creatinine 0.9. He had a low-grade temperature of 99.9 today. Blood pressure remains stable. 03/21/2023 Patient is still complaining of from abdominal pain, his status post exploratory laparotomy and sigmoid colectomy and colostomy. Today postop day #[address] Surgical wound is closed and dressed in place and looks healing with no discharge. Patient still has low appetite. No vomiting. No bowel movement. Ling catheter and epidural anesthesia still in place. Patient remains on D5 half-normal saline at 125 mL per hour as well as Levaquin and Flagyl. Patient has low-grade temperature 99.9 today but no leukocytosis which is improving 03/22/2023 patient is a status post exploratory laparotomy and sigmoid colectomy and colostomy. Postop day #2 Patient is not eating much, no bowel movement. Patient still complaining of from abdominal pain and his pain medication were upgraded into Dilaudid 1 mg every 2 hours. Also patient is an Toradol area Received 1 L of normal saline for low urine output Patient developed a fever of 101.2. Also he has more leukocytosis today 16.9k . Blood culture showing no growth He is also on D5 half-normal saline at 1 25 mL/h, he is on Levaquin and Flagyl 03/23/2023 Patient still complaining of from abdominal pain and still no bowel movement, is gradually tolerating liquid diet However patient looks more relaxed less stressful than yesterday after incre asing his pain medication. Vitals and labs look stable Patient remains on Levaquin and Flagyl and D5 half-normal saline at 1 25 mL/h March 24: I assumed care of the patient today from [facility] hospitalist. Laying in bed. On clear liquids. Did have some flatness. Some abdominal pain. Remains on Levaquin and Flagyl. Epidural was removed on March 21 Active Medications Acetaminophen (Acetaminophen Tab 325 Mg Tab) 650 mg PO Q6HR PRN PRN Reason: Fever and/ or Pain Benzocaine/Menthol (Benzocaine/Menthol Lozeng 1 Each Lozenge) 1 each MUCOUS MEM Q1HR PRN PRN Reason: Sore Throat Heparin Sodium (Porcine) (Heparin Sodium,Porcine/Pf 5,000 Unit/0.5 Ml Syringe) 5,000 unit SQ Q12HR [facility] Last Admin: 03/24/23 20:12 Dose: 5,000 unit Hydromorphone HCl (Hydromorphone 0.5 Mg/0.5 Ml Syringe) 0.5 mg IVP Q1HR PRN PRN Reason: Breakthrough Pain Last Admin: 03/21/23 16:36 Dose: 0.5 mg Hydromorphone HCl (Hydromorphone 1 Mg/Ml 1 Ml Syringe) 1 mg IVP Q2HR PRN PRN Reason: Pain Last Admin: 03/24/23 18:57 Dose: 1 mg Levofloxacin 500 mg/ IV (Solution) 100 mls @ 100 mls/hr IVPB Q24H [facility]; Protocol Last Admin: 03/24/23 11:30 Dose: 100 mls/hr Metronidazole 500 mg/ IV (Solution) 100 mls @ 100 mls/hr IVPB Q8HR [facility]; Protocol Last Admin: 03/24/23 15:55 Dose: 100 mls/hr Potassium Chloride/Dextrose/Sod Cl (D5%-1/2ns-Kcl 20 Meq/L Iv Solution) 1,000 mls @ 125 mls/hr IV .Q8H [facility] Last Admin: 03/24/23 11:30 Dose: 125 mls/hr Lorazepam (Lorazepam 1 Mg Tab) [address] [facility] Last Admin: 03/23/23 20:49 Dose: 1 mg Melatonin (Melatonin 3 Mg Tablet) 3 mg PO [facility] Last Admin: 03/23/23 20:49 Dose: 3 mg Metoclopramide HCl (Metoclopramide 5 Mg/Ml 2 Ml Vial) 10 mg IVP Q6HR PRN PRN Reason: Nausea and Vomiting Last Admin: 03/22/23 06:45 Dose: 10 mg Naloxone HCl (Naloxone 0.4 Mg/Ml 1 Ml Vial) 0.2 mg IV Q2M PRN PRN Reason: Opioid Reversal Ondansetron HCl (Ondansetron 4 Mg/2 Ml Vial) 4 mg IVP Q6HR PRN PRN Reason: Nausea And Vomiting Last Admin: 03/24/23 09:47 Dose: 4 mg Pantoprazole Sodium (Pantoprazole 40 Mg/10 Ml Vial) 40 mg IVP DAILY [facility] Last Admin: 03/24/23 09:44 Dose: 40 mg On examination: VITAL SIGNS: [98.5, 83, 17, 129/87, 96% room air] GENERAL APPEARANCE: Laying in bed, not in distress HEENT: Normal external appearance of nose and ear. Oral cavity normal EYES: Pupils equal. Conjunctiva normal. NECK: JVD not raised. Mass not palpable. RESPIRATORY: Respiratory effort normal. Lungs clear to auscultation. CARDIOVASCULAR: First and second sounds normal. No edema. ABDOMEN: Soft. Tender, no guarding rigidity. Colostomy in place Liver and spleen not palpable. . No mass palpable. Prevana wound VAC. Light output in the ostomy bag. PSYCHIATRY: Alert and oriented x3. Mood and affect somewhat anxious INVESTIGATIONS, reviewed in the clinical context: White count 11.8 hemoglobin 12.6 platelets 287 potassium 4.2 BUN 5.3 creatinine 0.7 Assessment: -Acute Sigmoid colon diverticulitis with perforation with fecal content outside of the colon. Status post except with her laparotomy, sigmoid colectomy and colostomy/March [address] Sarabia Clear liquids. Flatus. No BM. -Possible secondary peritonitis from fecal soiling from perforation IV Levaquin and Flagyl. -Obesity BMI 31.2 Weight loss measures -Leukocytosis secondary to infection from perforation On antibiotics -Mild postoperative blood loss anemia, expected from surgery Hemoglobin dropped from 14.7 down to 12.6 Continue current medications. Discussed. Clear liquids. Up in chair.
[2023-03-24] MEDS: LORazepam 1 MG TAB PO SCH (22:58)
[2023-03-24] MEDS: MELATONIN 3 MG TABLET PO SCH (22:58)
[2023-03-25] MEDS: ONDANSETRON 4 MG/2 ML VIAL IVP PRN (05:00)
[2023-03-25] MEDS: HYDROmorphone 1 MG/ML 1 ML SYRINGE IVP PRN (05:08)
[2023-03-25] MEDS: D5-0.45% NACL WITH KCL 20MEQ/L 1,000 ML IV SCH ×3 (06:52→23:43)
[2023-03-25] MEDS: metroNIDAZOLE-NS PMX 500 MG in SALINE 1 100ML.BAG IVPB SCH ×3 (08:27→23:43)
[2023-03-25] MEDS: HEPARIN SODIUM,PORCINE/PF 5,000 UNIT/0.5 ML SYRINGE SQ SCH ×2 (08:28→20:02)
[2023-03-25] MEDS: PANTOPRAZOLE 40 MG TABLET PO SCH (08:28)
[2023-03-25] MEDS: KETOROLAC 15 MG/ML 1 ML VIAL IVP SCH ×3 (10:28→23:43)
[2023-03-25] MEDS: LEVOFLOXACIN 500MG-D5W PMX 500 MG in DEXTROSE/WATER 1 100ML.BAG IVPB SCH (10:31)
--- NOTE | 2023-03-25 11:20 | P.PN ---
Progress Note - Text Progress Note Date: 03/25/23 The patient's complaints of incisional pain. He has been very slow to ambulate. On exam vital signs are stable. Abdomen soft. Colostomy has minimal output. Status post sigmoid clipped for perforated sigmoid colon. Patient encouraged a blade. I did discuss the patient the risk of possible DVT and PE if he remains sedentary.
[2023-03-25] MEDS ORDERED: PSYLLIUM HUSK 100% 6 GM PACKET PO SCH (12:30)
--- NOTE | 2023-03-25 18:38 | P.PN ---
Progress Note - Text Progress Note Date: 03/25/23 Hospital course: This is a 27-year-old patient with no family doctor. For one month has been tobar ving lower abdominal pain on and off. Pain progressed. Then became constant. With waxing and waning. Started having bloody stools. Finding his mother coax him to come to the hospital. Patient is decreased appetite some weight loss. No fever no chills. Computed tomography scan showing multilevel colitis. Including severe in the sigmoid colon with perforation. In the left pelvis. No well-formed fluid collection. Or abscess was seen. Patient was started on IV Flagyl and IV Levaquin by surgery. 03/17/2023 Patient is evaluated today resting in bed. Continues to report significant abdo anju pain mostly suprapubic and radiating through to the back with some abdominal tenderness. General surgery following and abdominal ultrasound ordered due to elevated LFT's. Ultrasound shows hepatic steatosis. LFT's have improved. Lipase was 78. He is on clear liquid diet. Vitals are stable. 03/18/2023 Patient is evaluated today resting in bed. Patient has continued suprapubic discomfort and concern for urinary retention. A post void residual done and negative. Abdominal pain is improving. Patient had a bowel movement and has positive bowel sounds. Continues on clear liquid diet. Continues on IV levofloxacin/metronidazole. White count has normalized down to 8.14. Surgery planning on discharge home tomorrow. 03/19/2023 Patient continues to report suprapubic discomfort. He states that his urinary stream has improved and his daughter having issues with urination. Bladder scan was found to be negative. He was not having any post void residuals. He did have a venous Doppler done which was negative for DVT. His abdominal pelvis CT follow-up today is showing a redemonstration of perforation of the sigmoid colon with feces outside of the bowel lumen treated overall the segment of bowel measures at least 9.4 cm in length involving predominantly the sigmoid colon. These findings are not significantly changed from prior computed tomography scan 4 days ago. Surgery is following at this time. Patient is scheduled for sigmoid colectomy with colostomy tomorrow morning. He remains hemodynamically stable his temp is 98.8 today. 03/20/2023 Patient and family in the room and discussed abdominal CT results. Patient continues to report abdominal pain mostly lower quadrant. He has not had much oral intake in the last 6 days. He does feel hungry. Patient scheduled to undergo exploratory laporotomy sigmoid colectomy and colostomy formation today. He remains on IV levofloxacin and IV metronidazole. Levaquin stable today. His sodium is 139, BUN 4.4, creatinine 0.9. He had a low-grade temperature of 99.9 today. Blood pressure remains stable. 03/21/2023 Patient is still complaining of from abdominal pain, his status post exploratory laparotomy and sigmoid colectomy and colostomy. Today postop day #[address] Surgical wound is closed and dressed in place and looks healing with no discharge. Patient still has low appetite. No vomiting. No bowel movement. Ling catheter and epidural anesthesia still in place. Patient remains on D5 half-normal saline at 125 mL per hour as well as Levaquin and Flagyl. Patient has low-grade temperature 99.9 today but no leukocytosis which is improving 03/22/2023 patient is a status post exploratory laparotomy and sigmoid colectomy and colostomy. Postop day #2 Patient is not eating much, no bowel movement. Patient still complaining of from abdominal pain and his pain medication were upgraded into Dilaudid 1 mg every 2 hours. Also patient is an Toradol area Received 1 L of normal saline for low urine output Patient developed a fever of 101.2. Also he has more leukocytosis today 16.9k . Blood culture showing no growth He is also on D5 half-normal saline at 1 25 mL/h, he is on Levaquin and Flagyl 03/23/2023 Patient still complaining of from abdominal pain and still no bowel movement, is gradually tolerating liquid diet However patient looks more relaxed less stressful than yesterday after incr easing his pain medication. Vitals and labs look stable Patient remains on Levaquin and Flagyl and D5 half-normal saline at 1 25 mL/h March 24: I assumed care of the patient today from [facility] hospitalist. Laying in bed. On clear liquids. Did have some flatness. Some abdominal pain. Remains on Levaquin and Flagyl. Epidural was removed on March 21 March 25: Patient did walk in the hallway. Currently lying in bed. On Levaquin and Flagyl. Minimal output from the colostomy bag. Given IV Toradol. Active Medications Acetaminophen (Acetaminophen Tab 325 Mg Tab) 650 mg PO Q6HR PRN PRN Reason: Fever and/ or Pain Benzocaine/Menthol (Benzocaine/Menthol Lozeng 1 Each Lozenge) 1 each MUCOUS MEM Q1HR PRN PRN Reason: Sore Throat Heparin Sodium (Porcine) (Heparin Sodium,Porcine/Pf 5,000 Unit/0.5 Ml Syringe) 5,000 unit SQ Q12HR [facility] Last Admin: 03/25/23 08:28 Dose: 5,000 unit Hydromorphone HCl (Hydromorphone 0.5 Mg/0.5 Ml Syringe) 0.5 mg IVP Q3H PRN PRN Reason: Breakthrough Pain Levofloxacin 500 mg/ IV (Solution) 100 mls @ 100 mls/hr IVPB Q24H [facility]; Protocol Last Admin: 03/25/23 10:31 Dose: 100 mls/hr Metronidazole 500 mg/ IV (Solution) 100 mls @ 100 mls/hr IVPB Q8HR [facility]; Protocol Last Admin: 03/25/23 16:21 Dose: 100 mls/hr Potassium Chloride/Dextrose/Sod Cl (D5%-1/2ns-Kcl 20 Meq/L Iv Solution) 1,000 mls @ 125 mls/hr IV .Q8H [facility] Last Admin: 03/25/23 16:21 Dose: 125 mls/hr Ketorolac Tromethamine (Ketorolac 15 Mg/Ml 1 Ml Vial) 15 mg IVP Q6HR [facility] Stop: 03/30/23 10:31 Last Admin: 03/25/23 18:32 Dose: 15 mg Lorazepam (Lorazepam 1 Mg Tab) 1 mg PO HS [facility] Last Admin: 03/24/23 22:58 Dose: 1 mg Melatonin (Melatonin 3 Mg Tablet) 3 mg PO HS [facility] Last Admin: 03/24/23 22:58 Dose: 3 mg Metoclopramide HCl (Metoclopramide 5 Mg/Ml 2 Ml Vial) 10 mg IVP Q6HR PRN PRN Reason: Nausea and Vomiting Last Admin: 03/22/23 06:45 Dose: 10 mg Naloxone HCl (Naloxone 0.4 Mg/Ml 1 Ml Vial) 0.2 mg IV Q2M PRN PRN Reason: Opioid Reversal Ondansetron HCl (Ondansetron 4 Mg/2 Ml Vial) 4 mg IVP Q6HR PRN PRN Reason: Nausea And Vomiting Last Admin: 03/25/23 05:00 Dose: 4 mg Pantoprazole Sodium (Pantoprazole 40 Mg Tablet) [facility] Last Admin: 03/25/23 08:28 Dose: 40 mg On examination: VITAL SIGNS: [98.2, 75, 18, 138/63, 96% room air] GENERAL APPEARANCE: Laying in bed, HEENT: Normal external appearance of nose and ear. Oral cavity normal EYES: Pupils equal. Conjunctiva normal. NECK: JVD not raised. Mass not palpable. RESPIRATORY: Respiratory effort normal. Lungs clear to auscultation. CARDIOVASCULAR: First and second sounds normal. No edema. ABDOMEN: Soft. Tender, no guarding rigidity. Liver and spleen not palpable. . No mass palpable. Prevana wound VAC. Light output in the ostomy bag. PSYCHIATRY: Alert and oriented x3. Mood and affect anxious INVESTIGATIONS, reviewed in the clinical context: White count 11.8 hemoglobin 12.6 platelets 287 potassium 4.2 BUN 5.3 creatinine 0.7 Assessment: -Acute Sigmoid colon diverticulitis with perforation with fecal content outside of the colon. Status post except with her laparotomy, sigmoid colectomy and colostomy/March [address] Sarabia Clear liquids. Flatus. No BM. -Possible secondary peritonitis from fecal soiling from perforation IV Levaquin and Flagyl. -Obesity BMI 31.2 Weight loss measures -Leukocytosis secondary to infection from perforation On antibiotics -Mild postoperative blood loss anemia, expected from surgery Hemoglobin dropped from 14.7 down to 12.6 Continue current medications. Did walk in the hallway. Dilaudid cutback. IV Toradol.
[2023-03-25] MEDS: HYDROmorphone 0.5 MG/0.5 ML SYRINGE IVP PRN (20:09)
[2023-03-25] MEDS: MELATONIN 3 MG TABLET PO SCH (21:20)
[2023-03-25] MEDS: LORazepam 1 MG TAB PO SCH (21:20)
[2023-03-26] MEDS: HYDROmorphone 0.5 MG/0.5 ML SYRINGE IVP PRN ×2 (01:09→09:34)
[2023-03-26] MEDS: KETOROLAC 15 MG/ML 1 ML VIAL IVP SCH ×3 (05:28→17:06)
[2023-03-26] MEDS: metroNIDAZOLE-NS PMX 500 MG in SALINE 1 100ML.BAG IVPB SCH ×2 (08:13→17:05)
[2023-03-26] MEDS: PANTOPRAZOLE 40 MG TABLET PO SCH (08:13)
[2023-03-26] MEDS: D5-0.45% NACL WITH KCL 20MEQ/L 1,000 ML IV SCH (08:15)
[2023-03-26 08:58] LABS: African American GFR (CKD) >90 (>60 ml/min/1.73 sqM); Anion Gap 9 mmol/L; Blood Urea Nitrogen 3 mg/dL (9-20); Calcium 8.4 mg/dL (8.4-10.2); Carbon Dioxide 26 mmol/L (22-30); Chloride 102 mmol/L (98-107); Glucose 87 mg/dL (74-99); Non-African American GFR(CKD) >90 (>60 ml/min/1.73 sqM); Potassium 4.1 mmol/L (3.5-5.1); Sodium 137 mmol/L (137-145)
[2023-03-26 09:05] LABS: Basophils % (A) 0 %; Eosinophils # (A) 0.2 k/uL (0-0.7); Eosinophils % (A) 2 %; HCT 38.5 % (39.0-53.0); HGB 12.6 gm/dL (13.0-17.5); Lymphocytes # (A) 1.4 k/uL (1.0-4.8); Lymphocytes % (A) 12 %; MCH 29.6 pg (25.0-35.0); MCHC 32.6 g/dL (31.0-37.0); MCV 90.8 fL (80.0-100.0); Mean Platelet Volume 8.8; Monocytes # (A) 0.9 k/uL (0-1.0); Monocytes % (A) 8 %; Neutrophils # (A) 8.5 k/uL (1.3-7.7); Neutrophils % (A) 77 %; Platelet Count 330 k/uL (150-450); RBC 4.24 m/uL (4.30-5.90); RDW 12.7 % (11.5-15.5); WBC 11.1 k/uL (3.8-10.6)
[2023-03-26] MEDS: LEVOFLOXACIN 500MG-D5W PMX 500 MG in DEXTROSE/WATER 1 100ML.BAG IVPB SCH (10:07)
[2023-03-26] MEDS: HEPARIN SODIUM,PORCINE/PF 5,000 UNIT/0.5 ML SYRINGE SQ SCH ×2 (10:50→21:01)
[2023-03-26] MEDS: HYDROcodone/APAP 5-325MG 1 EACH TAB PO PRN ×2 (12:20→17:09)
--- NOTE | 2023-03-26 13:05 | P.PN ---
Subjective Progress Note Date: 03/26/23 CHIEF COMPLAINT: Abdominal pain HISTORY OF PRESENT ILLNESS: Patient is postop day #6 status post sigmoid colectomy with colostomy for sigmoid colitis with perforation. Patient's pain is better controlled. His ostomy is functioning. He is tolerating full liquid diet. Denies any nausea or vomiting. Patient seen with the ostomy nurse. He does have separation of the stoma noted from the 9:00 to 1 o'clock position. There is also discoloration of the stoma. Preventive on a wound VAC dressing is saturated with reddish-brown discharge. Afebrile. WBC is staying around the same at 11.1 Hgb 12.6 platelets 330 na137 potassium 4.1 creatinine 0.65 Patient seen and examined with Dr. Sarabia PHYSICAL EXAM: VITAL SIGNS: Reviewed. GENERAL: Well-developed in no acute distress. ABDOMEN: Soft. Nondistended. Patient does have tenderness with palpation of the incision. Improve on a wound VAC pulldown no significant drainage noted currently on the incision. Vanessa with with separation noted from the 9:00 to 1 o'clock position. Some sloughing tissue noted on top of the stoma. There is some darkened discoloration noted as well. NEUROLOGIC: Alert and oriented. Cranial nerves II through XII grossly intact. ASSESSMENT: 1. Sigmoid colitis with perforation status post sigmoid colectomy with colostomy PLAN: -Pre-Von wound VAC discontinued -ABD dressing applied to incision -[place] added for oral pain medication -Encouraged patient ambulate -Continue full liquids -Discontinue IV fluids -Continue antibiotics -Encouraged patient to use incentive spirometer -GI prophylaxis Protonix and DVT prophylaxis subcu heparin Physician Skid Worker note has been reviewed by physician. Signing provider agrees with the documented findings, assessment, and plan of care. Objective - Vital Signs Vital signs: Vital Signs Temp 98.8 F 03/26/23 06:58 Pulse 69 03/26/23 06:58 Resp 18 03/26/23 06:58 BP 130/82 03/26/23 06:58 Pulse Ox 97 03/26/23 10:10 FiO2 21 03/21/23 08:26 Intake & Output 03/25/23 03/26/23 03/26/23 18:59 06:59 18:59 Intake Total 1350 Output Total 1250 1425 Balance -1250 -75 Intake: Intake, IV Titration 1350 Amount D5-0.45% NaCl with KCl 1250 20Meq/l 1,000 ml @ 125 mls/hr IV .Q8H [facility] Rx#: [id number]-NS PMX 500 100 mg In Saline 1 100ml.bag @ 100 mls/hr IVPB Q8HR [facility] Rx#:[id number] Output: Urine 1250 1425 Other: Voiding Method Urinal Urinal Urinal - Labs CBC & Chem 7: 03/26/23 05:51 03/26/23 05:51 Labs: Abnormal Lab Results - Last 24 Hours (Table) 03/26/23 03/26/23 Range/Units 05:51 05:51 WBC 11.1 H (3.8-10.6) k/uL RBC 4.24 L (4.30-5.90) m/uL Hgb 12.6 L (13.0-17.5) gm/dL Hct 38.5 L (39.0-53.0) % Neutrophils # 8.5 H (1.3-7.7) k/uL BUN 3 L (9-20) mg/dL Creatinine 0.65 L (0.66-1.25) mg/dL
--- NOTE | 2023-03-26 17:26 | P.PN ---
Progress Note - Text Progress Note Date: 03/26/23 Hospital course: This is a 27-year-old patient with no family doctor. For one month has been tobar ving lower abdominal pain on and off. Pain progressed. Then became constant. With waxing and waning. Started having bloody stools. Finding his mother coax him to come to the hospital. Patient is decreased appetite some weight loss. No fever no chills. Computed tomography scan showing multilevel colitis. Including severe in the sigmoid colon with perforation. In the left pelvis. No well-formed fluid collection. Or abscess was seen. Patient was started on IV Flagyl and IV Levaquin by surgery. 03/17/2023 Patient is evaluated today resting in bed. Continues to report significant abdo anju pain mostly suprapubic and radiating through to the back with some abdominal tenderness. General surgery following and abdominal ultrasound ordered due to elevated LFT's. Ultrasound shows hepatic steatosis. LFT's have improved. Lipase was 78. He is on clear liquid diet. Vitals are stable. 03/18/2023 Patient is evaluated today resting in bed. Patient has continued suprapubic discomfort and concern for urinary retention. A post void residual done and negative. Abdominal pain is improving. Patient had a bowel movement and has positive bowel sounds. Continues on clear liquid diet. Continues on IV levofloxacin/metronidazole. White count has normalized down to 8.14. Surgery planning on discharge home tomorrow. 03/19/2023 Patient continues to report suprapubic discomfort. He states that his urinary stream has improved and his daughter having issues with urination. Bladder scan was found to be negative. He was not having any post void residuals. He did have a venous Doppler done which was negative for DVT. His abdominal pelvis CT follow-up today is showing a redemonstration of perforation of the sigmoid colon with feces outside of the bowel lumen treated overall the segment of bowel measures at least 9.4 cm in length involving predominantly the sigmoid colon. These findings are not significantly changed from prior computed tomography scan 4 days ago. Surgery is following at this time. Patient is scheduled for sigmoid colectomy with colostomy tomorrow morning. He remains hemodynamically stable his temp is 98.8 today. 03/20/2023 Patient and family in the room and discussed abdominal CT results. Patient continues to report abdominal pain mostly lower quadrant. He has not had much oral intake in the last 6 days. He does feel hungry. Patient scheduled to undergo exploratory laporotomy sigmoid colectomy and colostomy formation today. He remains on IV levofloxacin and IV metronidazole. Levaquin stable today. His sodium is 139, BUN 4.4, creatinine 0.9. He had a low-grade temperature of 99.9 today. Blood pressure remains stable. 03/21/2023 Patient is still complaining of from abdominal pain, his status post exploratory laparotomy and sigmoid colectomy and colostomy. Today postop day #[address] Surgical wound is closed and dressed in place and looks healing with no discharge. Patient still has low appetite. No vomiting. No bowel movement. Ling catheter and epidural anesthesia still in place. Patient remains on D5 half-normal saline at 125 mL per hour as well as Levaquin and Flagyl. Patient has low-grade temperature 99.9 today but no leukocytosis which is improving 03/22/2023 patient is a status post exploratory laparotomy and sigmoid colectomy and colostomy. Postop day #2 Patient is not eating much, no bowel movement. Patient still complaining of from abdominal pain and his pain medication were upgraded into Dilaudid 1 mg every 2 hours. Also patient is an Toradol area Received 1 L of normal saline for low urine output Patient developed a fever of 101.2. Also he has more leukocytosis today 16.9k . Blood culture showing no growth He is also on D5 half-normal saline at 1 25 mL/h, he is on Levaquin and Flagyl 03/23/2023 Patient still complaining of from abdominal pain and still no bowel movement, is gradually tolerating liquid diet However patient looks more relaxed less stressful than yesterday after incr easing his pain medication. Vitals and labs look stable Patient remains on Levaquin and Flagyl and D5 half-normal saline at 1 25 mL/h March 24: I assumed care of the patient today from [facility] hospitalist. Laying in bed. On clear liquids. Did have some flatness. Some abdominal pain. Remains on Levaquin and Flagyl. Epidural was removed on March 21 March 25: Patient did walk in the hallway. Currently lying in bed. On Levaquin and Flagyl. Minimal output from the colostomy bag. Given IV Toradol. May 1: Pain better. Ambulated. Discussed with the patient and mother at the bedside. Putting out stool from the colostomy bag. Remains on Levaquin and Flagyl. Provena wound VAC discontinued today. On full liquids. Active Medications Acetaminophen (Acetaminophen Tab 325 Mg Tab) 650 mg PO Q6HR PRN PRN Reason: Fever and/ or Pain Hydrocodone Bitart/Acetaminophen (Hydrocodone/Apap 5-325mg 1 Each Tab) 1 each PO Q4HR PRN PRN Reason: Pain Last Admin: 03/26/23 17:09 Dose: 1 each Benzocaine/Menthol (Benzocaine/Menthol Lozeng 1 Each Lozenge) 1 each MUCOUS MEM Q1HR PRN PRN Reason: Sore Throat Heparin Sodium (Porcine) (Heparin Sodium,Porcine/Pf 5,000 Unit/0.5 Ml Syringe) 5,000 unit SQ Q12HR RODERICK Last Admin: 03/26/23 10:50 Dose: Not Given Hydromorphone HCl (Hydromorphone 0.5 Mg/0.5 Ml Syringe) 0.5 mg IVP Q3H PRN PRN Reason: Breakthrough Pain Last Admin: 03/26/23 09:34 Dose: 0.5 mg Levofloxacin 500 mg/ IV (Solution) 100 mls @ 100 mls/hr IVPB Q24H RODERICK; Protocol Last Admin: 03/26/23 10:07 Dose: 100 mls/hr Metronidazole 500 mg/ IV (Solution) 100 mls @ 100 mls/hr IVPB Q8HR RODERICK; Protocol Last Admin: 03/26/23 17:05 Dose: 100 mls/hr Ketorolac Tromethamine (Ketorolac 15 Mg/Ml 1 Ml Vial) 15 mg IVP Q6HR RODERICK Stop: 03/30/23 10:31 Last Admin: 03/26/23 17:06 Dose: 15 mg Lorazepam (Lorazepam 1 Mg Tab) 1 mg PO HS RODERICK Last Admin: 03/25/23 21:20 Dose: 1 mg Melatonin (Melatonin 3 Mg Tablet) 3 mg PO HS RODERICK Last Admin: 03/25/23 21:20 Dose: 3 mg Metoclopramide HCl (Metoclopramide 5 Mg/Ml 2 Ml Vial) 10 mg IVP Q6HR PRN PRN Reason: Nausea and Vomiting Last Admin: 03/22/23 06:45 Dose: 10 mg Naloxone HCl (Naloxone 0.4 Mg/Ml 1 Ml Vial) 0.2 mg IV Q2M PRN PRN Reason: Opioid Reversal Ondansetron HCl (Ondansetron 4 Mg/2 Ml Vial) 4 mg IVP Q6HR PRN PRN Reason: Nausea And Vomiting Last Admin: 03/25/23 05:00 Dose: 4 mg Pantoprazole Sodium (Pantoprazole 40 Mg Tablet) [facility] Last Admin: 03/26/23 08:13 Dose: 40 mg On examination: VITAL SIGNS: 97.2, 72, 18, 135/92, 97% room air GENERAL APPEARANCE: Sitting up in bed, looking more comfortable, HEENT: Normal external appearance of nose and ear. Oral cavity normal EYES: Pupils equal. Conjunctiva normal. NECK: JVD not raised. Mass not palpable. RESPIRATORY: Respiratory effort normal. Lungs clear to auscultation. CARDIOVASCULAR: First and second sounds normal. No edema. ABDOMEN: Soft. Tender, no guarding rigidity. Liver and spleen not palpable. . No mass palpable. Prevana wound VAC-removed. Stool in the ostomy bag. PSYCHIATRY: Alert and oriented x3. Mood and affect anxious INVESTIGATIONS, reviewed in the clinical context: March 26: White count 11.1 hemoglobin 12.6 potassium 4.1 creatinine 0.6 by White count 11.8 hemoglobin 12.6 platelets 287 potassium 4.2 BUN 5.3 creatinine 0.7 Assessment: -Acute Sigmoid colon diverticulitis with perforation with fecal content outside of the colon. Status post except with her laparotomy, sigmoid colectomy and colostomy/March [address] Sarabia Advanced to full liquids . DM in the ostomy bag. -Possible secondary peritonitis from fecal soiling from perforation IV Levaquin and Flagyl. -Obesity BMI 31.2 Weight loss measures -Leukocytosis secondary to infection from perforation On antibiotics -Mild postoperative blood loss anemia, expected from surgery Hemoglobin dropped from 14.7 down to 12.6 Skin so patient and mother. Increase activity. Advanced to full liquids. Told the patient to avoid Dilaudid if possible.
[2023-03-26] MEDS: LORazepam 1 MG TAB PO SCH (21:01)
[2023-03-26] MEDS: ONDANSETRON 4 MG/2 ML VIAL IVP PRN (21:01)
[2023-03-26] MEDS: MELATONIN 3 MG TABLET PO SCH (21:01)
[2023-03-27] MEDS: metroNIDAZOLE-NS PMX 500 MG in SALINE 1 100ML.BAG IVPB SCH ×4 (00:13→23:26)
[2023-03-27] MEDS: KETOROLAC 15 MG/ML 1 ML VIAL IVP SCH ×5 (00:14→23:26)
[2023-03-27 08:09] LABS: HGB 12.6 gm/dL (13.0-17.5); MCH 29.2 pg (25.0-35.0); MCHC 32.3 g/dL (31.0-37.0); MCV 90.5 fL (80.0-100.0); Mean Platelet Volume 8.3; Platelet Count 374 k/uL (150-450); RBC 4.31 m/uL (4.30-5.90); RDW 12.4 % (11.5-15.5); WBC 10.2 k/uL (3.8-10.6)
[2023-03-27 09:26] VITALS: RESP 18
[2023-03-27] MEDS: HEPARIN SODIUM,PORCINE/PF 5,000 UNIT/0.5 ML SYRINGE SQ SCH ×2 (11:19→19:58)
[2023-03-27] MEDS: PANTOPRAZOLE 40 MG TABLET PO SCH (11:19)
[2023-03-27] MEDS: LEVOFLOXACIN 500MG-D5W PMX 500 MG in DEXTROSE/WATER 1 100ML.BAG IVPB SCH (13:01)
[2023-03-27 13:28] LABS: Band Neutrophils % 2 %; Lymphocytes # (M) 1.33 k/uL (1.0-4.8); Metamyelocytes % 1 %; Monocytes # (M) 1.12 k/uL (0-1.0); Myelocytes % 2 %; Neutrophils % (M) 71 %; Nucleated Red Blood Cells 0 /100 WBC (0-0); Total Cells Counted 200
--- NOTE | 2023-03-27 13:47 | P.PN ---
Subjective Progress Note Date: 03/27/23 CHIEF COMPLAINT: Abdominal pain HISTORY OF PRESENT ILLNESS: Patient is postop day #7 status post sigmoid colectomy with colostomy for sigmoid colitis with perforation. Patient did have episode of vomiting last night. He reports that his pain is improving. He still has some drainage from the incision site. Afebrile. WBC has normalized at 10.2 Patient seen and examined with Dr. Sarabia PHYSICAL EXAM: VITAL SIGNS: Reviewed. GENERAL: Well-developed in no acute distress. ABDOMEN: Soft. Nondistended. Ostomy functioning. Stool brown in color. Patient does have slough tissue noted on the stoma. Incision site with purulent drainage at the 2 opened areas NEUROLOGIC: Alert and oriented. Cranial nerves II through XII grossly intact. ASSESSMENT: 1. Sigmoid colitis with perforation status post sigmoid colectomy with colostomy 2. Abdominal incision infection PLAN: -Continue antibiotics -Continue local wound care -Encourage patient to ambulate -Continue pain management -Encouraged patient to use incentive spirometer -Possible discharge tomorrow -GI prophylaxis Protonix and DVT prophylaxis subcu heparin Physician Dress Marker note has been reviewed by physician. Signing provider agrees with the documented findings, assessment, and plan of care. Objective - Vital Signs Vital signs: Vital Signs Temp 97.8 F 03/27/23 07:42 Pulse 75 03/27/23 07:42 Resp 18 03/27/23 07:42 BP 123/82 03/27/23 07:42 Pulse Ox 96 03/27/23 09:02 FiO2 21 03/21/23 08:26 Intake & Output 03/26/23 03/27/23 03/27/23 18:59 06:59 18:59 Output Total 400 600 Balance -400 -600 Weight 104.326 kg Output: Urine 400 500 Stool 100 Other: Voiding Method Urinal Urinal - Labs CBC & Chem 7: 03/27/23 07:27 03/26/23 05:51 Labs: Abnormal Lab Results - Last 24 Hours (Table) 03/27/23 Range/Units 07:27 Hgb 12.6 L (13.0-17.5) gm/dL Monocytes # (Manual) 1.12 H (0-1.0) k/uL Metamyelocytes # (Man) 0.10 H (0) k/uL Myelocytes # (Manual) 0.20 H (0) k/uL
[2023-03-27] MEDS: HYDROmorphone 0.5 MG/0.5 ML SYRINGE IVP PRN (17:47)
--- NOTE | 2023-03-27 19:52 | P.PN ---
Progress Note - Text Progress Note Date: 03/27/23 Hospital course: This is a 27-year-old patient with no family doctor. For one month has been tobar ving lower abdominal pain on and off. Pain progressed. Then became constant. With waxing and waning. Started having bloody stools. Finding his mother coax him to come to the hospital. Patient is decreased appetite some weight loss. No fever no chills. Computed tomography scan showing multilevel colitis. Including severe in the sigmoid colon with perforation. In the left pelvis. No well-formed fluid collection. Or abscess was seen. Patient was started on IV Flagyl and IV Levaquin by surgery. 03/17/2023 Patient is evaluated today resting in bed. Continues to report significant abdo anju pain mostly suprapubic and radiating through to the back with some abdominal tenderness. General surgery following and abdominal ultrasound ordered due to elevated LFT's. Ultrasound shows hepatic steatosis. LFT's have improved. Lipase was 78. He is on clear liquid diet. Vitals are stable. 03/18/2023 Patient is evaluated today resting in bed. Patient has continued suprapubic discomfort and concern for urinary retention. A post void residual done and negative. Abdominal pain is improving. Patient had a bowel movement and has positive bowel sounds. Continues on clear liquid diet. Continues on IV levofloxacin/metronidazole. White count has normalized down to 8.14. Surgery planning on discharge home tomorrow. 03/19/2023 Patient continues to report suprapubic discomfort. He states that his urinary stream has improved and his daughter having issues with urination. Bladder scan was found to be negative. He was not having any post void residuals. He did have a venous Doppler done which was negative for DVT. His abdominal pelvis CT follow-up today is showing a redemonstration of perforation of the sigmoid colon with feces outside of the bowel lumen treated overall the segment of bowel measures at least 9.4 cm in length involving predominantly the sigmoid colon. These findings are not significantly changed from prior computed tomography scan 4 days ago. Surgery is following at this time. Patient is scheduled for sigmoid colectomy with colostomy tomorrow morning. He remains hemodynamically stable his temp is 98.8 today. 03/20/2023 Patient and family in the room and discussed abdominal CT results. Patient continues to report abdominal pain mostly lower quadrant. He has not had much oral intake in the last 6 days. He does feel hungry. Patient scheduled to undergo exploratory laporotomy sigmoid colectomy and colostomy formation today. He remains on IV levofloxacin and IV metronidazole. Levaquin stable today. His sodium is 139, BUN 4.4, creatinine 0.9. He had a low-grade temperature of 99.9 today. Blood pressure remains stable. 03/21/2023 Patient is still complaining of from abdominal pain, his status post exploratory laparotomy and sigmoid colectomy and colostomy. Today postop day #[address] Surgical wound is closed and dressed in place and looks healing with no discharge. Patient still has low appetite. No vomiting. No bowel movement. Ling catheter and epidural anesthesia still in place. Patient remains on D5 half-normal saline at 125 mL per hour as well as Levaquin and Flagyl. Patient has low-grade temperature 99.9 today but no leukocytosis which is improving 03/22/2023 patient is a status post exploratory laparotomy and sigmoid colectomy and colostomy. Postop day #2 Patient is not eating much, no bowel movement. Patient still complaining of from abdominal pain and his pain medication were upgraded into Dilaudid 1 mg every 2 hours. Also patient is an Toradol area Received 1 L of normal saline for low urine output Patient developed a fever of 101.2. Also he has more leukocytosis today 16.9k . Blood culture showing no growth He is also on D5 half-normal saline at 1 25 mL/h, he is on Levaquin and Flagyl 03/23/2023 Patient still complaining of from abdominal pain and still no bowel movement, is gradually tolerating liquid diet However patient looks more relaxed less stressful than yesterday after incr easing his pain medication. Vitals and labs look stable Patient remains on Levaquin and Flagyl and D5 half-normal saline at 1 25 mL/h March 24: I assumed care of the patient today from [facility] hospitalist. Laying in bed. On clear liquids. Did have some flatness. Some abdominal pain. Remains on Levaquin and Flagyl. Epidural was removed on March 21 March 25: Patient did walk in the hallway. Currently lying in bed. On Levaquin and Flagyl. Minimal output from the colostomy bag. Given IV Toradol. May 1: Pain better. Ambulated. Discussed with the patient and mother at the bedside. Putting out stool from the colostomy bag. Remains on Levaquin and Flagyl. Provena wound VAC discontinued today. On full liquids. March 2: Ambulating. Did have a bout of vomiting last night. Colostomy bag is putting out stool. Some discharge from incision site. Couple of stitches were removed by Dr. Sarabia. Advanced to regular diet Active Medications Acetaminophen (Acetaminophen Tab 325 Mg Tab) 650 mg PO Q6HR PRN PRN Reason: Fever and/ or Pain Hydrocodone Bitart/Acetaminophen (Hydrocodone/Apap 5-325mg 1 Each Tab) 1 each PO Q4HR PRN PRN Reason: Pain Last Admin: 03/26/23 17:09 Dose: 1 each Benzocaine/Menthol (Benzocaine/Menthol Lozeng 1 Each Lozenge) 1 each MUCOUS MEM Q1HR PRN PRN Reason: Sore Throat Heparin Sodium (Porcine) (Heparin Sodium,Porcine/Pf 5,000 Unit/0.5 Ml Syringe) 5,000 unit SQ Q12HR RODERICK Last Admin: 03/27/23 11:19 Dose: 5,000 unit Hydromorphone HCl (Hydromorphone 0.5 Mg/0.5 Ml Syringe) 0.5 mg IVP Q3H PRN PRN Reason: Breakthrough Pain Last Admin: 03/27/23 17:47 Dose: 0.5 mg Levofloxacin 500 mg/ IV (Solution) 100 mls @ 100 mls/hr IVPB Q24H RODERICK; Protocol Last Admin: 03/27/23 13:01 Dose: 100 mls/hr Metronidazole 500 mg/ IV (Solution) 100 mls @ 100 mls/hr IVPB Q8HR RODERICK; Protocol Last Admin: 03/27/23 17:48 Dose: 100 mls/hr Ketorolac Tromethamine (Ketorolac 15 Mg/Ml 1 Ml Vial) 15 mg IVP Q6HR RODERICK Stop: 03/30/23 10:31 Last Admin: 03/27/23 17:49 Dose: 15 mg Lorazepam (Lorazepam 1 Mg Tab) 1 mg PO HS RODERICK Last Admin: 03/26/23 21:01 Dose: 1 mg Melatonin (Melatonin 3 Mg Tablet) 3 mg PO HS RODERICK Last Admin: 03/26/23 21:01 Dose: 3 mg Metoclopramide HCl (Metoclopramide 5 Mg/Ml 2 Ml Vial) 10 mg IVP Q6HR PRN PRN Reason: Nausea and Vomiting Last Admin: 03/22/23 06:45 Dose: 10 mg Naloxone HCl (Naloxone 0.4 Mg/Ml 1 Ml Vial) 0.2 mg IV Q2M PRN PRN Reason: Opioid Reversal Ondansetron HCl (Ondansetron 4 Mg/2 Ml Vial) 4 mg IVP Q6HR PRN PRN Reason: Nausea And Vomiting Last Admin: 03/26/23 21:01 Dose: 4 mg Pantoprazole Sodium (Pantoprazole 40 Mg Tablet) [facility] Last Admin: 03/27/23 11:19 Dose: 40 mg On examination: VITAL SIGNS: 98.2, 60, 18, 1:30/81, 99% room air GENERAL APPEARANCE: Sitting up in bed, looking more comfortable, HEENT: Normal external appearance of nose and ear. Oral cavity normal EYES: Pupils equal. Conjunctiva normal. NECK: JVD not raised. Mass not palpable. RESPIRATORY: Respiratory effort normal. Lungs clear to auscultation. CARDIOVASCULAR: First and second sounds normal. No edema. ABDOMEN: Soft. Minimal Tender, no guarding rigidity. Liver and spleen not palpable. . No mass palpable. . Stool in the ostomy bag. Dressing over the incision site PSYCHIATRY: Alert and oriented x3. Mood and affect anxious INVESTIGATIONS, reviewed in the clinical context: March 27: White count 10.2 hemoglobin 12.6 March 26: White count 11.1 hemoglobin 12.6 potassium 4.1 creatinine 0.6 by White count 11.8 hemoglobin 12.6 platelets 287 potassium 4.2 BUN 5.3 creatinine 0.7 Assessment: -Acute Sigmoid colon diverticulitis with perforation with fecal content outside of the colon. Status post except with her laparotomy, sigmoid colectomy and colostomy/March [address] Sarabia Advanced to regular diet . Colostomy bag working -Possible secondary peritonitis from fecal soiling from perforation IV Levaquin and Flagyl. -Obesity BMI 31.2 Weight loss measures -Leukocytosis secondary to infection from perforation: On antibiotics -Mild postoperative blood loss anemia, expected from surgery Hemoglobin dropped from 14.7 down to 12.6 Discussed with patient. Increase activity. Wound care per Dr. Sarabia. Diet advanced to regular.
[2023-03-27] MEDS: HYDROcodone/APAP 5-325MG 1 EACH TAB PO PRN (19:58)
[2023-03-27] MEDS: LORazepam 1 MG TAB PO SCH (20:56)
[2023-03-27] MEDS: MELATONIN 3 MG TABLET PO SCH (20:56)
[2023-03-28] MEDS: PANTOPRAZOLE 40 MG TABLET PO SCH (05:32)
[2023-03-28] MEDS: KETOROLAC 15 MG/ML 1 ML VIAL IVP SCH ×2 (05:33→12:39)
[2023-03-28 08:48] VITALS: BP 116/73; PULSE 78; TEMP 98.2
[2023-03-28] MEDS: metroNIDAZOLE-NS PMX 500 MG in SALINE 1 100ML.BAG IVPB SCH (08:55)
[2023-03-28] MEDS: LEVOFLOXACIN 500MG-D5W PMX 500 MG in DEXTROSE/WATER 1 100ML.BAG IVPB SCH (08:56)
[2023-03-28] MEDS: HEPARIN SODIUM,PORCINE/PF 5,000 UNIT/0.5 ML SYRINGE SQ SCH (08:56)
[2023-03-28] MEDS: HYDROcodone/APAP 5-325MG 1 EACH TAB PO PRN (10:24)
--- NOTE | 2023-03-28 13:02 | P.PN ---
Progress Note - Text Progress Note Date: 03/28/23 Hospital course: This is a 27-year-old patient with no family doctor. For one month has been tobar ving lower abdominal pain on and off. Pain progressed. Then became constant. With waxing and waning. Started having bloody stools. Finding his mother coax him to come to the hospital. Patient is decreased appetite some weight loss. No fever no chills. Computed tomography scan showing multilevel colitis. Including severe in the sigmoid colon with perforation. In the left pelvis. No well-formed fluid collection. Or abscess was seen. Patient was started on IV Flagyl and IV Levaquin by surgery. 03/17/2023 Patient is evaluated today resting in bed. Continues to report significant abdo anju pain mostly suprapubic and radiating through to the back with some abdominal tenderness. General surgery following and abdominal ultrasound ordered due to elevated LFT's. Ultrasound shows hepatic steatosis. LFT's have improved. Lipase was 78. He is on clear liquid diet. Vitals are stable. 03/18/2023 Patient is evaluated today resting in bed. Patient has continued suprapubic discomfort and concern for urinary retention. A post void residual done and negative. Abdominal pain is improving. Patient had a bowel movement and has positive bowel sounds. Continues on clear liquid diet. Continues on IV levofloxacin/metronidazole. White count has normalized down to 8.14. Surgery planning on discharge home tomorrow. 03/19/2023 Patient continues to report suprapubic discomfort. He states that his urinary stream has improved and his daughter having issues with urination. Bladder scan was found to be negative. He was not having any post void residuals. He did have a venous Doppler done which was negative for DVT. His abdominal pelvis CT follow-up today is showing a redemonstration of perforation of the sigmoid colon with feces outside of the bowel lumen treated overall the segment of bowel measures at least 9.4 cm in length involving predominantly the sigmoid colon. These findings are not significantly changed from prior computed tomography scan 4 days ago. Surgery is following at this time. Patient is scheduled for sigmoid colectomy with colostomy tomorrow morning. He remains hemodynamically stable his temp is 98.8 today. 03/20/2023 Patient and family in the room and discussed abdominal CT results. Patient continues to report abdominal pain mostly lower quadrant. He has not had much oral intake in the last 6 days. He does feel hungry. Patient scheduled to undergo exploratory laporotomy sigmoid colectomy and colostomy formation today. He remains on IV levofloxacin and IV metronidazole. Levaquin stable today. His sodium is 139, BUN 4.4, creatinine 0.9. He had a low-grade temperature of 99.9 today. Blood pressure remains stable. 03/21/2023 Patient is still complaining of from abdominal pain, his status post exploratory laparotomy and sigmoid colectomy and colostomy. Today postop day #[address] Surgical wound is closed and dressed in place and looks healing with no discharge. Patient still has low appetite. No vomiting. No bowel movement. Ling catheter and epidural anesthesia still in place. Patient remains on D5 half-normal saline at 125 mL per hour as well as Levaquin and Flagyl. Patient has low-grade temperature 99.9 today but no leukocytosis which is improving 03/22/2023 patient is a status post exploratory laparotomy and sigmoid colectomy and colostomy. Postop day #2 Patient is not eating much, no bowel movement. Patient still complaining of from abdominal pain and his pain medication were upgraded into Dilaudid 1 mg every 2 hours. Also patient is an Toradol area Received 1 L of normal saline for low urine output Patient developed a fever of 101.2. Also he has more leukocytosis today 16.9k . Blood culture showing no growth He is also on D5 half-normal saline at 1 25 mL/h, he is on Levaquin and Flagyl 03/23/2023 Patient still complaining of from abdominal pain and still no bowel movement, is gradually tolerating liquid diet However patient looks more relaxed less stressful than yesterday after incr easing his pain medication. Vitals and labs look stable Patient remains on Levaquin and Flagyl and D5 half-normal saline at 1 25 mL/h March 24: I assumed care of the patient today from [facility] hospitalist. Laying in bed. On clear liquids. Did have some flatness. Some abdominal pain. Remains on Levaquin and Flagyl. Epidural was removed on March 21 March 25: Patient did walk in the hallway. Currently lying in bed. On Levaquin and Flagyl. Minimal output from the colostomy bag. Given IV Toradol. May 1: Pain better. Ambulated. Discussed with the patient and mother at the bedside. Putting out stool from the colostomy bag. Remains on Levaquin and Flagyl. Provena wound VAC discontinued today. On full liquids. March 2: Ambulating. Did have a bout of vomiting last night. Colostomy bag is putting out stool. Some discharge from incision site. Couple of stitches were removed by Dr. Sarabia. Advanced to regular diet March 3: Some drainage and incision site. No fever no chills. Tolerating diet. Colostomy putting out stool. No fever no chills. Pain well controlled. Ambulating. Active Medications Acetaminophen (Acetaminophen Tab 325 Mg Tab) 650 mg PO Q6HR PRN PRN Reason: Fever and/ or Pain Hydrocodone Bitart/Acetaminophen (Hydrocodone/Apap 5-325mg 1 Each Tab) 1 each PO Q4HR PRN PRN Reason: Pain Last Admin: 03/28/23 10:24 Dose: 1 each Benzocaine/Menthol (Benzocaine/Menthol Lozeng 1 Each Lozenge) 1 each MUCOUS MEM Q1HR PRN PRN Reason: Sore Throat Heparin Sodium (Porcine) (Heparin Sodium,Porcine/Pf 5,000 Unit/0.5 Ml Syringe) 5,000 unit SQ Q12HR RODERICK Last Admin: 03/28/23 08:56 Dose: 5,000 unit Hydromorphone HCl (Hydromorphone 0.5 Mg/0.5 Ml Syringe) 0.5 mg IVP Q3H PRN PRN Reason: Breakthrough Pain Last Admin: 03/27/23 17:47 Dose: 0.5 mg Levofloxacin 500 mg/ IV (Solution) 100 mls @ 100 mls/hr IVPB Q24H RODERICK; Protocol Last Admin: 03/28/23 08:56 Dose: 100 mls/hr Metronidazole 500 mg/ IV (Solution) 100 mls @ 100 mls/hr IVPB Q8HR RODERICK; Protocol Last Admin: 03/28/23 08:55 Dose: 100 mls/hr Ketorolac Tromethamine (Ketorolac 15 Mg/Ml 1 Ml Vial) 15 mg IVP Q6HR RODERICK Stop: 03/30/23 10:31 Last Admin: 03/28/23 12:39 Dose: 15 mg Lorazepam (Lorazepam 1 Mg Tab) 1 mg PO HS RODERICK Last Admin: 03/27/23 20:56 Dose: 1 mg Melatonin (Melatonin 3 Mg Tablet) 3 mg PO [facility] Last Admin: 03/27/23 20:56 Dose: 3 mg Metoclopramide HCl (Metoclopramide 5 Mg/Ml 2 Ml Vial) 10 mg IVP Q6HR PRN PRN Reason: Nausea and Vomiting Last Admin: 03/22/23 06:45 Dose: 10 mg Naloxone HCl (Naloxone 0.4 Mg/Ml 1 Ml Vial) 0.2 mg IV Q2M PRN PRN Reason: Opioid Reversal Ondansetron HCl (Ondansetron 4 Mg/2 Ml Vial) 4 mg IVP Q6HR PRN PRN Reason: Nausea And Vomiting Last Admin: 03/26/23 21:01 Dose: 4 mg Pantoprazole Sodium (Pantoprazole 40 Mg Tablet) 40 mg PO -BRKFST [facility] Last Admin: 03/28/23 05:32 Dose: 40 mg On examination: VITAL SIGNS: 98.2, 78, 18, 116/73, 96% room air GENERAL APPEARANCE: Sitting up in bed, comfortable, HEENT: Normal external appearance of nose and ear. Oral cavity normal EYES: Pupils equal. Conjunctiva normal. NECK: JVD not raised. Mass not palpable. RESPIRATORY: Respiratory effort normal. Lungs clear to auscultation. CARDIOVASCULAR: First and second sounds normal. No edema. ABDOMEN: Soft. Non-Tender, no guarding rigidity. Liver and spleen not palpable. . No mass palpable. . Stool in the ostomy bag. Dressing over the incision site PSYCHIATRY: Alert and oriented x3. Mood and affect anxious INVESTIGATIONS, reviewed in the clinical context: March 27: White count 10.2 hemoglobin 12.6 March 26: White count 11.1 hemoglobin 12.6 potassium 4.1 creatinine 0.6 by White count 11.8 hemoglobin 12.6 platelets 287 potassium 4.2 BUN 5.3 creatinine 0.7 Assessment: -Acute Sigmoid colon diverticulitis with perforation with fecal content outside of the colon. Status post except with her laparotomy, sigmoid colectomy and colostomy/March [address] Sarabia regular diet . Colostomy bag working -Possible secondary peritonitis from fecal soiling from perforation IV Levaquin and Flagyl. -Obesity BMI 31.2 Weight loss measures -Leukocytosis secondary to infection from perforation: Better On antibiotics -Mild postoperative blood loss anemia, expected from surgery Hemoglobin dropped from 14.7 down to 12.6 Discussed with patient. Doing better. Discussed with patient. Follow with surgery
--- NOTE | 2023-03-28 14:15 | P.DS ---
Providers Date of admission: 03/15/23 17:46 Expected date of discharge: 03/28/23 Attending physician: Bereket Sarabia Consults: 03/15/23 17:55 Consult Physician Routine Consulting Provider: Anthony Hooper Consult Reason/Comments: medical management Do you want consulting provider notified?: Yes Primary care physician: Stated None Hospital Course: Discharge diagnosis 1. Sigmoid colitis with perforation status post sigmoid colectomy with colostomy 2. Abdominal incision infection Hospital course This is a 27-year-old male who presented with left lower quadrant abdominal pain for about 2 weeks. Patient reports that he has not had a normal bowel movement about 6 days. It extended loose and mucousy. Patient has computed tomography scan that showed evidence of a multilevel colitis severe colitis of the sigmoid colon with perforation in the left pelvis. Patient's pain continued to worsen and white count did increase. He had a repeat computed tomography scan that re demonstrated the perforation of the sigmoid colon with feces outside of the bowel. Patient did not improve with conservative management therefore he underwent sigmoid colectomy with colostomy placement. Patient reports his pain is controlled. He is tolerating diet. He is afebrile. He has been up and ambulating. His ostomy is functioning. He also developed a incisional infection. 2 areas of marshal were removed. Packing has been applied. And he continued antibiotics at discharge. He is stable for discharge. Please refer to chart for any further details. Physician Typewriter Assembler note has been reviewed by physician. Signing provider agrees with the documented findings, assessment, and plan of care. Patient Condition at Discharge: Stable Plan - Discharge Summary Discharge Rx Participant: No New Discharge Prescriptions: New Pantoprazole [Protonix] 40 mg PO AC-BRKFST #30 tab Acetaminophen Tab [Tylenol] 650 mg PO Q6HR PRN tab PRN Reason: Fever And/ Or Pain Levofloxacin [Levaquin] 500 mg PO DAILY 7 Days #7 tab Ibuprofen [Motrin] 600 mg PO Q6HR PRN #40 tab PRN Reason: Pain oxyCODONE HCL [OxyIR] 5 mg PO Q6H PRN 3 Days #10 tab PRN Reason: Pain Acetaminophen Tab [Tylenol] 650 mg PO Q6H #30 tab Discharge Medication List Acetaminophen Tab [Tylenol] 650 mg PO Q6HR PRN tab 03/27/23 [Rx] Pantoprazole [Protonix] 40 mg PO AC-BRKFST #30 tab 03/27/23 [Rx] Acetaminophen Tab [Tylenol] 650 mg PO Q6H #30 tab 03/28/23 [Rx] Ibuprofen [Motrin] 600 mg PO Q6HR PRN #40 tab 03/28/23 [Rx] Levofloxacin [Levaquin] 500 mg PO DAILY 7 Days #7 tab 03/28/23 [Rx] oxyCODONE HCL [OxyIR] 5 mg PO Q6H PRN 3 Days #10 tab 03/28/23 [Rx] Follow up Appointment(s)/Referral(s): None,Stated [Primary Care Provider] - 1-2 days [facility] Visiting Nurse, [NON-STAFF] - 1-2 Days Bereket Sarabia MD [STAFF PHYSICIAN] - 04/05/23 1:30 pm Patient Instructions/Handouts: Colostomy Care (GEN) Activity/Diet/Wound Care/Special Instructions: Colostomy Care Recommendations for Transition to Home as follows: Last pouching system change: 03.26.2023 Hospital will supply the following for home to care for your new colostomy: Convatec cut to fit w filter #[id number] (3) Convatec moldable flange #[id number] (3) Convatec pouching bag with filter #[id number] (3) Osotmy Powder (1) George rings (2) No sting prep pads (12) Additional ostomy supplies will be sent to Mr Bills [facility] 7 days after discharge from [facility] samples Mr Bills to empty the pouch in the bathroom while sitting on the toilet when the pouch is 1/2 to 1/3 full Mr Bills is to change the pouching system every 3 to 5 days unless directed differently form Home Care or the Surgeon Dr Sarabia No driving while taking OxyIR No lifting over 10 pounds Shower daily. No soaking or tub baths for 2 weeks Very light activity until you are reevaluated at your follow up appointment with your surgeon Discharge Disposition: HOME WITH HOME HEALTH SERVICES
--- NOTE | 2023-03-30 18:18 | CDI ---
Documentation Clarification Form Date: 03/30/2023 5:45:18 PM From: Amanda Trotter RN, CCDS Admit Date: 03/15/2023 5:46:00 PM Patient Name: Tanner Bills Visit Number: [id number] Discharge Date: 03/28/2023 3:08:00 PM ATTENTION: The Clinical Documentation Specialists (CDI) and [facility] Coding Staff appreciate your assistance in clarifying documentation. Please respond to the clarification below the line at the bottom and electronically sign. The CDI & [facility] Coding staff will review the response and follow-up if needed. Please note: Queries are made part of the Legal Health Record. If you have any questions, please contact the author of this message via ITS. Dr. Bereket Sarabia Abdominal incision infection is documented in the progress notes starting on 03/26/23 and patient had sigmoid colectomy with colostomy on 03/20/23. Additional clarification is requested regarding the relationship, if any, that exists between the diagnosis and the procedure. Patients Admitting Diagnosis: Sigmoid colitis with perforation Post-Operative Diagnosis: Same Procedure performed: Sigmoid colectomy with colostomy for sigmoid colitis with colostomy History/Risk Factors: None reported Clinical Indicators: 27-year-old male present with lower abdominal pain. 03/15 CT abdomen/pelvis: Acute severe colitis in the sigmoid colon with perforation in the left pelvis. 03/19 Ct abdomen/pelvis: Redemonstration of perforation of sigmoid colon with feces outside the bowel lumen. 03/26/23 progress note addendum has patient with evidence of abdominal incision infection. Dr. Sarabia, did remove stables at 2 areas of incision. Purulent drainage notes. The areas were packed with gauze. 03/26 Labs WBC 11.1 HGB 12.6 03/26 Vital signs 127/83 72 16 98.8 Treatment: Pre-Von wound Vac discontinued. ABD dressing applied to incision. Levaquin 500MG IVPB 03/16-03/28 Flagyl 500 MG IVPB 03/16-03/28 What relationship, if any, exists between the diagnosis of abdominal incision infection and the procedure? [ ] Abdominal incision infection is a complication of surgical procedure. [ ] Abdominal incision infection is an expected outcome of the surgical procedure. [ xxx ] Abdominal incision infection is related to patients co-morbid condition(s) of [insert co-morbid dxs & not a complication of the procedure [ ] Abdominal incision infection has been ruled out [ ] Other please specify ____ [ ] Unable to determine (Template Last Revised: January 2021) MTDD
--- NOTE | 2023-04-10 20:48 | P.OP ---
Date of Procedure: 03/22/23 Preoperative Diagnosis: Sigmoid colon perforation Postoperative Diagnosis: Sigmoid colon perforation Procedure(s) Performed: Sigmoid colectomy with end colostomy Anesthesia: FERNANDO Surgeon: Bereket Sarabia Estimated Blood Loss (ml): 50 Pathology: other (Sigmoid colon) Condition: stable Disposition: PACU Description of Procedure: The patient's placed on the operative table in the supine position. He received general endotracheal tube anesthesia. His abdomen was prepped and draped in sterile fashion. The abdomen was entered through a low midline incision. Using left cautery the subcutaneous tissue divided and then the abdominal wall was divided. The Bookwalter tract with wound. The abdomen explored. There was significant inflammatory response in the left lower quadrant. The colon was examined. There appeared to be evidence of perforation of the sigmoid colon. At this point the white line of Toldt was mobilized and the left colon was mobilized. The distal left colon was then transected the GI stapler. Using the Enseal device the mesentery of the sigmoid colon was then divided. And then the rectum was divided with the contour stapler. Specimen to pathology. The abdomen was irrigated there is no bleeding seen. The colon was then brought up in the left upper quadrant. A suitable spot for the colostomy was then created. The colon was then brought through the abdominal wall. There was area no bleeding seen. The fascia was then closed with looped #1 PDS suture the skin was closed marshal. Patient top she will well and was sent to recovery room in stable condition.
== END 2023-03-28 15:08 | disposition home health service (06) | DRG 231 ==
LOC: EC 15:22 → 4SSUR 17:46
PROVIDERS: ADMIT Surgery; ATTEND Surgery
PROC: 0D1N074 Bypass Sigmoid Colon to Cutaneous with Autologous Tissue Substitute, Open Approach (ICD-10-PCS; 2023-03-20)
PROC: 0DTN0ZZ Resection of Sigmoid Colon, Open Approach (ICD-10-PCS; principal; 2023-03-20 08:30)
DX: K57.20 Diverticulitis of large intestine with perforation and abscess without bleeding (principal); K52.89 Other specified noninfective gastroenteritis and colitis; D62 Acute posthemorrhagic anemia; E66.9 Obesity, unspecified; Z28.310 Unvaccinated for COVID-19; Z68.31 Body mass index [BMI] 31.0-31.9, adult; Z71.3 Dietary counseling and surveillance
CPT/HCPCS: 36415; 74177; 76705; 80048; 80053; 81003; 82272; 83605; 83690; 85025; 85610; 86850; 86900; 86901; 88307; 94760; 96361; 96365; 96366; 96375; 99285

== ENCOUNTER → 2023-06-13 | Outpatient (CLI) | payer OTHER ==
[2023-06-13 20:31] LABS: Basophils # (A) 0.07 X 10*3/uL (0.00-0.10); Eosinophils # (A) 0.24 X 10*3/uL (0.04-0.35); Eosinophils % (A) 3.4 %; HCT 51.9 % (39.6-50.0); HGB 16.5 d/dL (12.0-15.0); Lymphocytes # (A) 2.29 X 10*3/uL (0.90-5.00); Lymphocytes % (A) 32.3 %; MCH 29.4 pg (27.0-32.0); MCHC 31.8 d/dL (32.0-37.0); MCV 92.3 FL (80.0-97.0); Mean Platelet Volume 10.7 FL (9.5-12.2); Monocytes # (A) 0.49 X 10*3/uL (0.20-1.00); Monocytes % (A) 6.9 %; NRBC Per 100 WBC 0 X 10*3/uL (0.00-0.01); Neutrophils # (A) 3.95 X 10*3/uL (1.80-7.70); Neutrophils % (A) 55.7 %; Platelet Count 346 X 10*3/uL (140-440); RBC 5.62 X 10*6/uL (4.40-5.60); RDW 13.1 % (11.5-14.5); WBC 7.09 X 10*3/uL (4.50-10.00)
[2023-06-14 00:16] LABS: Potassium 5.1 mmol/L (3.5-5.5)
== END | disposition home or self-care (01) ==
LOC: LABPAT 12:16
PROVIDERS: ATTEND Surgery
DX: Z01.812 Encounter for preprocedural laboratory examination (principal)
CPT/HCPCS: 36415; 80051; 85025

== ENCOUNTER 2023-06-18 12:37 | Day surgery (SDC) | payer OTHER ==
[2023-06-13 11:41] VITALS: BMI 31.6
[2023-06-18] MEDS: LACTATED RINGERS 1,000 ML IV SCH ×2 (12:51→14:23)
[2023-06-18 13:03] VITALS: TEMP 97.3
[2023-06-18] MEDS ORDERED: LIDOCAINE 2% INJ 20 MG/ML (2 ML VIAL) ONE (13:23)
[2023-06-18] MEDS ORDERED: PROPOFOL 10 MG/ML 20 ML VIAL IV ONE (13:23)
--- NOTE | 2023-06-18 14:22 | P.OP ---
Date of Procedure: 06/18/23 Preoperative Diagnosis: History of perforated diverticulitis Postoperative Diagnosis: History of perforated diverticulitis Procedure(s) Performed: Colonoscopy Anesthesia: MAC Surgeon: Bereket Sarabia Pathology: none sent Condition: stable Disposition: PACU Description of Procedure: The patient's placed on the endoscopy table in the lateral position. He received IV sedation. Digital rectal exam was performed. This revealed no ebonized. The possible colonoscope was then placed patient anus and passed throughout the rectal stump. The rectal stump measured approximately 22 cm. Scope withdrawn. There was no pathology the rectum seen. Scope withdrawn for patient. Next the patient is rotated onto the supine position. Digital exam of colostomy was performed. The flexible colonoscope was then placed in patient's colostomy passed rotator colon. Ileocecal valve was visualized. The cecum, ascending and transverse colon appeared normal. The descending colon Scope was withdrawn.
[2023-06-18 14:25] VITALS: BP 117/73; PULSE 79; RESP 20
== END 2023-06-18 14:27 | disposition home or self-care (01) ==
LOC: ORWHC2ENDO 12:37
PROVIDERS: ATTEND Surgery
DX: K57.20 Diverticulitis of large intestine with perforation and abscess without bleeding (principal); F17.210 Nicotine dependence, cigarettes, uncomplicated; Z79.899 Other long term (current) drug therapy
CPT/HCPCS: 44388; J2704; J2001

== ENCOUNTER 2023-06-19 06:27 | Inpatient (IN) | payer OTHER ==
[2023-06-13 11:54] VITALS: BMI 31.6
[~2023-06-19 06:27] MED LIST: ACETAMINOPHEN TAB 500 MG TAB PO PRN; DEXAMETHASONE SOD PHOSPHATE 4 MG/ML 1 ML VIAL IV ONE; HEPARIN SODIUM,PORCINE/PF 5,000 UNIT/0.5 ML SYRINGE SQ PRN; LIDOCAINE 1% (10MG/ML) FOR IV START INTRADERMA PRN; ONDANSETRON 4 MG/2 ML VIAL IVP ONE
[2023-06-19] MEDS ORDERED: HYDROmorphone 0.5 MG/0.5 ML SYRINGE IVP PRN (07:00)
[2023-06-19] MEDS: LACTATED RINGERS 1,000 ML IV SCH (07:29)
[2023-06-19] MEDS ORDERED: ALVIMOPAN 12 MG CAPSULE PO ONE (07:36)
[2023-06-19] MEDS ORDERED: MIDAZOLAM 2 MG/2 ML VIAL IVP ONE (07:55)
[2023-06-19] MEDS ORDERED: fentaNYL (PF) 50 MCG/ML 2 ML AMP IVP ONE (07:57)
[2023-06-19] MEDS ORDERED: ONDANSETRON 4 MG/2 ML VIAL IVP PRN ×2 (08:17→11:19)
[2023-06-19] MEDS ORDERED: NALOXONE 0.4 MG/ML 1 ML VIAL IV PRN ×2 (08:17→11:19)
[2023-06-19] MEDS ORDERED: NALBUPHINE 10 MG/ML (10 ML MDV) IV PRN (08:17)
[2023-06-19] MEDS ORDERED: ROPIVACAINE 250 MG, HYDROMORPHONE (PF) 5 MG in SODIUM CHLORIDE 0.9% 200 ML EPIDURAL PRN (08:30)
--- NOTE | 2023-06-19 08:31 | P.ANPRN ---
Procedure Note - Anesthesia - Epidural/Spinal Epidural Continuous Date of Procedure: 06/19/23 Procedure Start Time: 07:55 Procedure Stop Time: 08:06 Location of Patient: PreOp Indication: Acute Post-Operative Pain, Requested by Surgeon (No) Sedation Type: Sedate with meaningful contact maintained Preparation: Sterile Dressing Number of Attempts: 1 Position: Sitting Catheter Depth at Skin (cm): 12 Catheter: Indwelling Needle Guage: 18 Narrative: Negative test dose Blood Aspirated: No Pain Paresthesia on Injection Noted: No Events: Uneventful and Well Tolerated
[2023-06-19] MEDS ORDERED: LIDOCAINE 2% INJ 20 MG/ML (2 ML VIAL) ONE (08:55)
[2023-06-19] MEDS ORDERED: ROCURONIUM 10 MG/ML (5 ML VIAL) IV ONE (08:55)
[2023-06-19] MEDS ORDERED: SUCCINYLCHOLINE CHLORIDE 200 MG/10 ML VIAL IV ONE (08:55)
[2023-06-19] MEDS ORDERED: PROPOFOL 10 MG/ML 20 ML VIAL IV ONE (08:55)
[2023-06-19] MEDS ORDERED: GLYCOPYRROLATE 0.2 MG/ML 2 ML VIAL ONE (08:55)
[2023-06-19] MEDS: metroNIDAZOLE-NS PMX 500 MG in SALINE 1 100ML.BAG IVPB PRN ×2 (08:55→09:06)
[2023-06-19] MEDS ORDERED: MIDAZOLAM 2 MG/2 ML VIAL ONE (08:55)
[2023-06-19] MEDS ORDERED: NEOSTIGMINE 1 MG/ML 10 ML VIAL ONE (08:55)
[2023-06-19] MEDS ORDERED: fentaNYL (PF) 50 MCG/ML 2 ML AMP ONE (08:55)
[2023-06-19] MEDS ORDERED: methylPREDNISolone ACETATE 40 MG/ML 1 ML VIAL ONE (08:55)
[2023-06-19] MEDS ORDERED: KETAMINE 10 MG/ML 20 ML VIAL ONE (08:55)
[2023-06-19] MEDS ORDERED: LACTATED RINGERS 1,000 ML IV ONE ×2 (09:45→11:19)
[2023-06-19] MEDS ORDERED: ACETAMINOPHEN TAB 325 MG TAB PO PRN (11:19)
[2023-06-19] MEDS ORDERED: METOCLOPRAMIDE 5 MG/ML 2 ML VIAL IVP PRN (11:19)
--- NOTE | 2023-06-19 11:19 | P.OP ---
Date of Procedure: 06/19/23 Preoperative Diagnosis: History of perforated diverticulitis Postoperative Diagnosis: History of perforated diverticulitis Procedure(s) Performed: Reversal of colostomy Anesthesia: FERNANDO Surgeon: Bereket Sarabia Estimated Blood Loss (ml): 100 Pathology: other (colon) Condition: stable Disposition: PACU Description of Procedure: The patient's placed on the operative table in the supine position. He received general endotracheal tube anesthesia. His then placed in the dorsal lithotomy position. His abdomen was prepped and draped usual sterile fashion. A [place] drape was used to block off the colostomy. The abdomen was entered through a midline incision through the previous scar. There were adhesions to the midline. These were lysed with sharp dissection. The peritoneal cavity is entered. The colostomy was then transected at the fascial level using the MARIAM stapler. The adhesion the pelvis and lysed using sharp dissection. The rectal stump was visualized. I been previously sutured with a 3-0 Prolene stitch. The rectal stump was mobilized. And then the colon was brought down of the rectum. There appeared to be adequate length of colon. A pursestring device applied to the distal colon just proximal to the stapler. At this point the colon was opened along the staple line. And then the anvil for the 29 mm EEA stapler was placed in the colon. The pursestring was secured. At this point the plumber's assistant placed the dilator patient's rectum. And then the 29 mm EEA stapler was placed into the rectum. The spike was driven through the distal rectal staple line. The anvil was then cut to the stapler. The stapler was then closed and fired. 2 intact tissue rings were then withdrawn from the stapler. Next using a bowel clamp the colon just proximal to the anastomosis was occluded. The rectal stump was insufflated with air. There is no evidence of extravasation of air at the staple line. At this point the abdomen was irrigated. There is no bleeding seen. The fascia was then closed with looped #1 PDS suture. Skin was closed table. The colostomy then removed using left cautery. The fascial defect was then repaired using 0 Ethibond pop-off suture and the #1 Luis F fix suture. A [place] drains placed into the colostomy site. And then the skin was stapled. Patient top she will well he was sent to recovery room in stable condition.
[2023-06-19] MEDS: HYDROmorphone 0.5 MG/0.5 ML SYRINGE IVP PRN ×3 (12:55→23:50)
[2023-06-19] MEDS: diphenhydrAMINE 50 MG/ML 1 ML VIAL IVP PRN ×2 (15:22→22:39)
[2023-06-19] MEDS: HEPARIN SODIUM,PORCINE/PF 5,000 UNIT/0.5 ML SYRINGE SQ SCH ×2 (15:23→22:40)
--- NOTE | 2023-06-19 15:50 | P.CONS ---
History of Present Illness - Reason for Consult Consult date: 06/19/23 Medical management, postoperative colostomy reversal from perforated divert - History of Present Illness This is a 28-year-old male who was admitted under surgical services with past medical history of perforated diverticulitis requiring colostomy and was here for colostomy reversal, postop day 0. Patient with no significant past medical history other than perforated diverticulitis in February 2023 requiring sigmoid co lectomy with colostomy. Patient is postoperative sitting up in the bed with family at bedside maintained on epidural pain pump reporting some itching on his back and generalized. Will add IV Benadryl as needed. Patient is also continued on cefazolin and metronidazole per surgery and will continue. Patient is currently being started on clear liquid diet and will advance per surgery recommendations. Would recommend a.m. labs and also incentive spirometer and encourage the patient to continue using at least 10 times every hour while awake. Patient also continues with pain pump with anesthesia following. Patient does have abdominal binder noted and would recommend continuing to use while out of bed. Review Of Systems: Constitutional: No fever, no chills, no night sweats. No weight change. No weakness, fatigue or lethargy. No daytime sleepiness. EENT: No headache. No blurred vision or double vision, no loss of vision. No loss of Hearing, no ringing in the ears, no dizziness. No nasal drainage or congestion. No epistaxis. No sore throat. Lungs: No shortness of breath, cough, no sputum production. No wheezing. Cardiovascular: No chest pain, no lower extremity edema. No palpitations. No paroxysmal nocturnal dyspnea. No orthopnea. No lightheadedness or dizziness. No syncopal episodes. Abdominal: reports abdominal pain. No nausea, no vomiting. No diarrhea. No constipation. No bloody or tarry stools.. No loss of appetite. Genitourinary: No dysuria, increased frequency, urgency. No urinary retention. Musculoskeletal: No myalgias. No muscle weakness, no gait dysfunction, no frequent falls. No back pain. No neck pain. Integumentary: No wounds, no lesions. No rash or pruritus. No unusual bruising. No change in hair or nails. Neurologic: No aphasia. No facial droop. No change in mentation. No head injury. No headache. No paralysis. No paresthesia. Psychiatric: No depression. No anxiety. No mood swings. Endocrine: No abnormal blood sugars. No weight change. No excessive sweating or thirst. No cold intolerance. PHYSICAL EXAMINATION: GENERAL: The patient is alert and oriented x4, Well developed, well nourished. obese HEENT: Pupils are round and equally reacting to light. EOMI. no scleral icterus. No conjunctival pallor. Normocephalic, atraumatic. No pharyngeal erythema. No thyromegaly. CARDIOVASCULAR: S1 and S2 muffled PULMONARY: diminished breath sounds bilaterally with no wheezing or rhonchi noted. ABDOMEN: soft. tender on exam. obese. non-distended, normoactive bowel sounds. No palpable organomegaly. surgical dressing with some shadowing noted as well as abdominal binder MUSCULOSKELETAL: No joint swelling or deformity. EXTREMITIES: No cyanosis, clubbing, or pedal edema. NEUROLOGICAL: Gross neurological examination did not reveal any focal deficits. Diffuse weakness SKIN: No rashes. Assessment: History of perforated diverticulitis in 02/2023 requiring sigmoid colectomy with colostomy Status post colostomy reversal postop day 06/19/2023 Obesity with a BMI of 34.0 THC use Vaping GI prophylaxis DVT prophylaxis Full code Plan: Recommend to continue with current medications and management per general surgery services. Patient was admitted for colostomy reversal and is postop day 0 Abdominal binder is in place and surgical dressing with shadowing and being monitored closely. Patient did have a [place] drain placed at the ostomy site and will need continued wound care Patient is continued on antibiotics per surgery recommendations Would recommend follow-up labs in the morning including CBC, BMP, magnesium Patient is continued on clear liquids and will be advanced per surgery recommendations Patient continues with epidural pain pump with anesthesia following. Patient reporting to having some itching with no shortness of breath, throat swelling and there is no rash noted will add IV Benadryl as needed and recommend monitor closely Encouraged increased activity as tolerated We will continue to follow with general surgery during hospitalization. Thank you kindly for this consultation. The impression and plan of care has been dictated by Kimberley Marks, nurse practitioner as directed. Dr. Lulú MD I have performed a history and examination and MDM of this patient, discussed the same with the dictator, and agree with the dictator's assessment and plan as written ,documented as a scribe. Based on total visit time, I have performed more than 50% of the visit. Any additional findings or plans will be noted. Past Medical History Past Medical History: No Reported History Additional Past Medical History / Comment(s): PERFORATED DIVERTICULITIS 02/2023 History of Any Multi-Drug Resistant Organisms: None Reported Past Surgical History: Bowel Resection Additional Past Surgical History / Comment(s): SIGMOID COLECTOMY WITH COLOSTOMY 02/2023 Past Anesthesia/Blood Transfusion Reactions: No Reported Reaction Additional Past Anesthesia/Blood Transfusion Reaction / Comm: EXPERIENCING PAIN IN BACK SINCE EPIDURAL Past Psychological History: No Psychological Hx Reported Additional Psychological History / Comment(s): PAST HX ANX/DEP BUT NO LONGER A PROBLEM PER THE PT Smoking Status: Vaper Past Alcohol Use History: Occasional Past Drug Use History: Marijuana - Past Family History Father Family Medical History: Unable to Obtain Mother Additional Family Medical History / Comment(s): HEPATITIS-TYPE UNK Medications and Allergies Home Medications Medication Instructions Recorded Confirmed Type No Known Home Medications 06/13/23 06/19/23 History Allergies Allergy/AdvReac Type Severity Reaction Status Date / Time piperacillin [From Zosyn] Allergy Itching Verified 06/19/23 07:04 tazobactam [From Zosyn] Allergy Itching Verified 06/19/23 07:04 morphine AdvReac Vomiting Verified 06/19/23 07:38 Physical Exam Vitals: Vital Signs Temp Pulse Resp BP Pulse Ox 06/19/23 12:42 97.3 F L 61 22 147/87 99 06/19/23 12:15 54 L 16 139/83 100 06/19/23 12:00 65 16 138/87 100 06/19/23 11:45 69 16 159/92 100 06/19/23 11:30 74 16 149/80 100 06/19/23 11:14 97.0 F L 71 16 136/80 98 06/19/23 08:10 63 16 138/82 97 06/19/23 07:55 60 16 129/77 98 06/19/23 07:11 97.5 F L 68 16 136/88 97 Intake and Output 06/19/23 06/19/23 06/19/23 06:59 14:59 22:59 Intake Total 1750 Output Total 325 Balance 1425 Intake: IV 1750 Output: Urine 225 Estimated Blood Loss 100 Other: Weight 116.9 kg
[2023-06-20] MEDS: HYDROmorphone 0.5 MG/0.5 ML SYRINGE IVP PRN ×3 (04:41→10:40)
[2023-06-20] MEDS: LACTATED RINGERS 1,000 ML IV SCH ×3 (05:28→19:59)
--- NOTE | 2023-06-20 07:20 | P.PN ---
Progress Note - Text Progress Note Date: 06/20/23 Postoperative day #1 status post colostomy reversal ,epidural catheter placed for postoperative analgesia, patient doing well epidural site okay, patient currently on combination of epidural infusion solution of Ropivacaine 0.0625% and Dilaudid 20 g per mL the infusion rate at 10 ml per hour , patient had no motor deficit, epidural site okay , vital signs stable, patient complaining of pain intensity 8-9/10, he had no focal neurological deficit, discussed with the patient the option of replacing the epidural catheter, patient will prefer to start IV pain medication, epidural catheter will be discontinued after patient started on IV pain medication
[2023-06-20] MEDS: diphenhydrAMINE 50 MG/ML 1 ML VIAL IVP PRN (07:46)
[2023-06-20] MEDS: PANTOPRAZOLE 40 MG/10 ML VIAL IV SCH (07:51)
[2023-06-20] MEDS: HEPARIN SODIUM,PORCINE/PF 5,000 UNIT/0.5 ML SYRINGE SQ SCH ×3 (08:28→22:32)
[2023-06-20 09:22] LABS: Basophils # (A) 0.03 X 10*3/uL (0.00-0.10); Basophils % (A) 0.2 %; Eosinophils # (A) 0.08 X 10*3/uL (0.04-0.35); Eosinophils % (A) 0.6 %; HCT 47.2 % (39.6-50.0); HGB 15.3 d/dL (13.0-17.0); Lymphocytes # (A) 2.36 X 10*3/uL (0.90-5.00); MCH 29.1 pg (27.0-32.0); MCHC 32.4 d/dL (32.0-37.0); MCV 89.7 FL (80.0-97.0); Mean Platelet Volume 10.3 FL (9.5-12.2); Monocytes # (A) 1.31 X 10*3/uL (0.20-1.00); NRBC Per 100 WBC 0 X 10*3/uL (0.00-0.01); Neutrophils # (A) 9.29 X 10*3/uL (1.80-7.70); Neutrophils % (A) 70.7 %; Platelet Count 317 X 10*3/uL (140-440); RBC 5.26 X 10*6/uL (4.40-5.60); RDW 13.1 % (11.5-14.5); WBC 13.13 X 10*3/uL (4.50-10.00)
[2023-06-20 09:47] LABS: ALT 30 U/L (10-49); AST 14 U/L (14-35); Albumin 4.1 d/dL (3.8-4.9); Albumin/Globulin Ratio 1.64 Ratio (1.60-3.17); Alkaline Phosphatase 54 U/L (41-126); BUN/Creat Ratio 11.56 Ratio (12.00-20.00); Blood Urea Nitrogen 10.4 mg/dL (9.0-27.0); Calcium 9.2 mg/dL (8.7-10.3); Carbon Dioxide 29.5 mmol/L (21.6-31.8); Chloride 100 mmol/L (96-109); Globulin 2.5 d/dL (1.6-3.3); Glucose 72 mg/dL (70-110); Potassium 4.5 mmol/L (3.5-5.5); Sodium 139 mmol/L (135-145); Total Bilirubin 0.6 mg/dL (0.3-1.2); Total Protein 6.6 d/dL (6.2-8.2)
[2023-06-20] MEDS: ACETAMINOPHEN IV (For NPO) 1,000 MG in EMPTY BAG 1 BAG IVPB SCH ×3 (10:41→22:32)
--- NOTE | 2023-06-20 11:31 | P.PN ---
Subjective Progress Note Date: 06/20/23 CHIEF COMPLAINT: History of perforated diverticulitis HISTORY OF PRESENT ILLNESS: Patient is postop day #1 status post reversal of colostomy. He did have epidural in place which was not controlling the pain. Epidural discontinued this morning. Patient is now on IV Dilaudid he is requiring it every 3 hours. He is complaining of his back itching and feeling sweaty. Denies any nausea or vomiting. No bowel activity yet. Afebrile. WBC 13.13 Hgb 15.3 platelets 317 Na 139 potassium 4.5 creatinine 0.9 PHYSICAL EXAM: VITAL SIGNS: Reviewed. GENERAL: Well-developed in no acute distress. HEENT: No sclera icterus. Extraocular movements grossly intact. Moist buccal mucosa. Head is atraumatic, normocephalic. ABDOMEN: Soft. Nondistended. Tender incision site. Left side of abdomen colostomy incision with [place] drain with serosanguineous drainage. Midline incision dressing clean dry and intact NEUROLOGIC: Alert and oriented. Cranial nerves II through XII grossly intact. ASSESSMENT: 1. Perforated diverticulitis status post colostomy reversal PLAN: -IV Dilaudid 1 mg every 3 hours added for pain control -Add IV Tylenol every 6 hours scheduled -Continue Benadryl as needed for itching -Continue IV fluids -Encouraged patient to ambulate -Encouraged patient to use incentive spirometer GI prophylaxis Protonix and DVT prophylaxis subcu heparin Physician Washer Hand note has been reviewed by physician. Signing provider agrees with the documented findings, assessment, and plan of care. Objective - Vital Signs Vital signs: Vital Signs Temp 98.1 F 06/20/23 08:10 Pulse 88 06/20/23 08:10 Resp 20 06/20/23 08:10 BP 164/80 06/20/23 08:10 Pulse Ox 95 06/20/23 08:10 FiO2 Intake & Output 06/19/23 06/20/23 06/20/23 18:59 06:59 18:59 Intake Total 1750 Output Total 700 400 175 Balance 1050 -400 -175 Weight 116.9 kg Intake: IV 1750 Output: Urine 600 400 175 Uretheral (Ling) 175 Estimated Blood Loss 100 Other: Voiding Method Indwelling Catheter Indwelling Catheter - Labs CBC & Chem 7: 06/20/23 05:19 06/20/23 05:19 Labs: Abnormal Lab Results - Last 24 Hours (Table) 06/20/23 06/20/23 Range/Units 05:19 05:19 WBC 13.13 H (4.50-10.00) X 10*3/uL Neutrophils # 9.29 H (1.80-7.70) X 10*3/uL Monocytes # 1.31 H (0.20-1.00) X 10*3/uL BUN/Creatinine Ratio 11.56 L (12.00-20.00) Ratio
[2023-06-20] MEDS ORDERED: HYDROmorphone 0.5 MG/0.5 ML SYRINGE IVP STA (12:33)
[2023-06-20] MEDS ORDERED: HYDROmorphone 0.5 MG/0.5 ML SYRINGE IVP PRN (13:26)
[2023-06-20] MEDS: HYDROmorphone 1 MG/ML 1 ML SYRINGE IVP PRN ×2 (19:40→22:32)
[2023-06-20] MEDS ORDERED: ALPRAZolam 0.25 MG TAB PO ONE (20:19)
[2023-06-21] MEDS: HYDROmorphone 1 MG/ML 1 ML SYRINGE IVP PRN ×7 (01:07→20:16)
[2023-06-21] MEDS: LACTATED RINGERS 1,000 ML IV SCH ×4 (03:49→20:16)
[2023-06-21] MEDS: ACETAMINOPHEN IV (For NPO) 1,000 MG in EMPTY BAG 1 BAG IVPB SCH (04:31)
--- NOTE | 2023-06-21 05:48 | P.PN ---
Subjective Progress Note Date: 06/20/23 - Reason for Consult Consult date: 06/19/23 Medical management, postoperative colostomy reversal from perforated divert - History of Present Illness This is a 28-year-old male who was admitted under surgical services with past medical history of perforated diverticulitis requiring colostomy and was here for colostomy reversal, postop day 0. Patient with no significant past medical history other than perforated diverticulitis in February 2023 requiring sigmoid colectomy with colostomy. Patient is postoperative sitting up in the bed with family at bedside maintained on epidural pain pump reporting some itching on his back and generalized. Will add IV Benadryl as needed. Patient is also continued on cefazolin and metronidazole per surgery and will continue. Patient is currently being started on clear liquid diet and will advance per surgery recommendations. Would recommend a.m. labs and also incentive spirometer and encourage the patient to continue using at least 10 times every hour while awake. Patient also continues with pain pump with anesthesia following. Patient does have abdominal binder noted and would recommend continuing to use while out of bed. 06/20/2023 Patient is seen in follow-up today reporting abdominal pain. Patient denies passing gas or having any bowel movements. Patient reports to minimal belching currently maintained on clear liquids. Patient continues to have some nausea and has not vomited today. Patient with generalized weakness and fatigue. Current abdominal dressings are dry and intact continue local wound care. Pain pump has been discontinued and would encourage increased activity as tolerated. Encouraged incentive spirometer at least 10 times every hour while awake. Patient is currently afebrile and awaiting a.m. labs and will follow-up with those. Replace electrolytes per protocol. Review of systems: Constitutional: reports of fatigue, no fever, or chills Cardiovascular: No reports of chest pain or palpitations Respiratory: No reports of shortness of breath or cough GI: reports of intermittent nausea, no vomiting, or diarrhea, patient is not passing gas and no bowel movement as of yet : No reports of dysuria or retention Neurovascular: reports of generalized weakness All medications have been reviewed PHYSICAL EXAMINATION: GENERAL: The patient is alert and oriented x4, Well developed, well nourished. obese HEENT: Pupils are round and equally reacting to light. EOMI. no scleral icterus. No conjunctival pallor. Normocephalic, atraumatic. No pharyngeal erythema. No thyromegaly. CARDIOVASCULAR: S1 and S2 muffled PULMONARY: diminished breath sounds bilaterally with no wheezing or rhonchi noted. ABDOMEN: soft. tender on exam. obese. non-distended, normoactive bowel sounds. No palpable organomegaly. surgical dressing was changed and dry and intact MUSCULOSKELETAL: No joint swelling or deformity. EXTREMITIES: No cyanosis, clubbing, or pedal edema. NEUROLOGICAL: Gross neurological examination did not reveal any focal deficits. Diffuse weakness SKIN: No rashes. Assessment: History of perforated diverticulitis in 02/2023 requiring sigmoid colectomy with colostomy Status post colostomy reversal postop 06/19/2023 Obesity with a BMI of 34.0 THC use Vaping GI prophylaxis DVT prophylaxis Full code Plan: Patient to continue with current medications and management per general surgery services. Patient was admitted for colostomy reversal and is postop day 1. Pump removed Abdominal binder is in place and surgical dressing was changed and currently dry and intact. Patient did have a [place] drain placed at the ostomy site and will need continued wound care Patient is continued on antibiotics per surgery recommendations follow-up labs in the morning including CBC, BMP, magnesium Patient is continued on clear liquids and will be advanced per surgery recommendations Encouraged increased activity as tolerated We will continue to follow with general surgery during hospitalization. Thank you kindly for this consultation. The impression and plan of care has been dictated by Kimberley Marks, nurse practitioner as directed. Dr. Lulú MD I have performed a history and examination and MDM of this patient, discussed the same with the dictator, and agree with the dictator's assessment and plan as written ,documented as a scribe. Based on total visit time, I have performed more than 50% of the visit. Any additional findings or plans will be noted. Objective - Vital Signs Vital signs: Vital Signs Temp 97.9 F 06/20/23 13:36 Pulse 81 06/20/23 13:36 Resp 20 06/20/23 13:36 BP 138/89 06/20/23 13:36 Pulse Ox 97 06/20/23 13:36 FiO2 Intake & Output 06/20/23 06/20/23 06/21/23 06:59 18:59 06:59 Output Total 400 175 Balance -400 -175 Output: Urine 400 175 Uretheral (Ling) 175 Other: Voiding Method Indwelling Catheter # Voids 2 - Labs CBC & Chem 7: 06/20/23 05:19 06/20/23 05:19 Labs: Abnormal Lab Results - Last 24 Hours (Table) 06/20/23 06/20/23 Range/Units 05:19 05:19 WBC 13.13 H (4.50-10.00) X 10*3/uL Neutrophils # 9.29 H (1.80-7.70) X 10*3/uL Monocytes # 1.31 H (0.20-1.00) X 10*3/uL BUN/Creatinine Ratio 11.56 L (12.00-20.00) Ratio
[2023-06-21] MEDS: PANTOPRAZOLE 40 MG/10 ML VIAL IV SCH (07:37)
--- NOTE | 2023-06-21 09:25 | P.PN ---
Progress Note - Text Progress Note Date: 06/21/23 The patient's epidural was removed yesterday due to severe itching as per the patient's nurse. We will sign off. The patient has Orders for pain meds by his surgeon.
[2023-06-21] MEDS: HEPARIN SODIUM,PORCINE/PF 5,000 UNIT/0.5 ML SYRINGE SQ SCH ×3 (10:52→23:37)
[2023-06-21] MEDS: HYDROcodone/APAP 5-325MG 1 EACH TAB PO PRN ×3 (12:08→21:58)
--- NOTE | 2023-06-21 13:48 | P.PN ---
Subjective Progress Note Date: 06/21/23 CHIEF COMPLAINT: History of perforated diverticulitis HISTORY OF PRESENT ILLNESS: Patient is postop day #2 status post reversal of colostomy. Patient continues to complain of abdominal pain. He denies any nausea or vomiting. He is tolerating clear liquids. He did have flatus with small BM. Afebrile. Labs pending for today PHYSICAL EXAM: VITAL SIGNS: Reviewed. GENERAL: Well-developed in no acute distress. HEENT: No sclera icterus. Extraocular movements grossly intact. Moist buccal mucosa. Head is atraumatic, normocephalic. ABDOMEN: Soft. Nondistended. Tender incision site. Incision site minimal drainage noted at the umbilicus. [place] drain minimal drainage serosanguineous NEUROLOGIC: Alert and oriented. Cranial nerves II through XII grossly intact. ASSESSMENT: 1. Perforated diverticulitis status post colostomy reversal PLAN: -Continue clear liquid diet implanted advanced full liquid diet tomorrow morning -Add [place] for oral pain medication -Continue pain management -Change surgical dressing to Optifoam silver -Continue IV fluids -Encouraged patient to ambulate -Encouraged patient to use incentive spirometer GI prophylaxis Protonix and DVT prophylaxis subcu heparin Physician Life Skills Instructor note has been reviewed by physician. Signing provider agrees with the documented findings, assessment, and plan of care. Objective - Vital Signs Vital signs: Vital Signs Temp 98.8 F 06/21/23 07:59 Pulse 95 06/21/23 07:59 Resp 18 06/21/23 07:59 BP 151/88 06/21/23 07:59 Pulse Ox 97 06/21/23 09:08 FiO2 Intake & Output 06/20/23 06/21/23 06/21/23 18:59 06:59 18:59 Output Total 175 750 Balance -175 -750 Output: Urine 175 750 Uretheral (Ling) 175 Other: Voiding Method Indwelling Catheter # Voids 2 3 - Labs CBC & Chem 7: 06/20/23 05:19 06/20/23 05:19
[2023-06-21 14:27] LABS: BUN/Creat Ratio 7.86 Ratio (12.00-20.00); Blood Urea Nitrogen 5.5 mg/dL (9.0-27.0); Calcium 9.2 mg/dL (8.7-10.3); Carbon Dioxide 20.9 mmol/L (21.6-31.8); Chloride 97 mmol/L (96-109); Glucose 77 mg/dL (70-110); Magnesium 1.9 mg/dL (1.5-2.4); Potassium 4.1 mmol/L (3.5-5.5); Sodium 134 mmol/L (135-145)
[2023-06-21 14:28] LABS: Basophils # (A) 0.04 X 10*3/uL (0.00-0.10); Basophils % (A) 0.3 %; Eosinophils % (A) 0.8 %; HCT 45.7 % (39.6-50.0); Lymphocytes # (A) 1.73 X 10*3/uL (0.90-5.00); Lymphocytes % (A) 13.2 %; MCH 29.5 pg (27.0-32.0); MCHC 32.8 d/dL (32.0-37.0); Mean Platelet Volume 10.6 FL (9.5-12.2); Monocytes # (A) 1.08 X 10*3/uL (0.20-1.00); Monocytes % (A) 8.3 %; NRBC Per 100 WBC 0 X 10*3/uL (0.00-0.01); Neutrophils # (A) 10.06 X 10*3/uL (1.80-7.70); Neutrophils % (A) 76.9 %; Platelet Count 269 X 10*3/uL (140-440); RBC 5.08 X 10*6/uL (4.40-5.60); RDW 12.9 % (11.5-14.5); WBC 13.07 X 10*3/uL (4.50-10.00)
[2023-06-22] MEDS: HYDROmorphone 1 MG/ML 1 ML SYRINGE IVP PRN ×7 (00:13→21:19)
[2023-06-22] MEDS: LACTATED RINGERS 1,000 ML IV SCH ×3 (03:19→13:32)
--- NOTE | 2023-06-22 06:13 | P.PN ---
Subjective Progress Note Date: 06/21/23 - Reason for Consult Consult date: 06/19/23 Medical management, postoperative colostomy reversal from perforated divert - History of Present Illness This is a 28-year-old male who was admitted under surgical services with past medical history of perforated diverticulitis requiring colostomy and was here for colostomy reversal, postop day 0. Patient with no significant past medical history other than perforated diverticulitis in February 2023 requiring sigmoid colectomy with colostomy. Patient is postoperative sitting up in the bed with family at bedside maintained on epidural pain pump reporting some itching on his back and generalized. Will add IV Benadryl as needed. Patient is also continued on cefazolin and metronidazole per surgery and will continue. Patient is currently being started on clear liquid diet and will advance per surgery recommendations. Would recommend a.m. labs and also incentive spirometer and encourage the patient to continue using at least 10 times every hour while awake. Patient also continues with pain pump with anesthesia following. Patient does have abdominal binder noted and would recommend continuing to use while out of bed. 06/20/2023 Patient is seen in follow-up today reporting abdominal pain. Patient denies passing gas or having any bowel movements. Patient reports to minimal belching currently maintained on clear liquids. Patient continues to have some nausea and has not vomited today. Patient with generalized weakness and fatigue. Current abdominal dressings are dry and intact continue local wound care. Pain pump has been discontinued and would encourage increased activity as tolerated. Encouraged incentive spirometer at least 10 times every hour while awake. Patient is currently afebrile and awaiting a.m. labs and will follow-up with those. Replace electrolytes per protocol. 06/21/2023 Patient is seen this morning post colostomy reversal maintained on clear liquids and tolerating. Patient continues to report abdominal pain and denies nausea and vomiting. Patient had [place] catheter removed and awaiting to void. Patient reports passing some gas but very minimal bowel movement today. Encouraged increased activity as tolerated and oral pain medications being added. Patient continue with dressing changes. White count trending down and patient is afebrile. Review of systems: Constitutional: reports of fatigue, no fever, or chills Cardiovascular: No reports of chest pain or palpitations Respiratory: No reports of shortness of breath or cough GI: reports of intermittent nausea, no vomiting, or diarrhea, patient is passing gas and very small bowel movement : No reports of dysuria or retention Neurovascular: reports of generalized weakness All medications have been reviewed PHYSICAL EXAMINATION: GENERAL: The patient is alert and oriented x4, Well developed, well nourished. obese HEENT: Pupils are round and equally reacting to light. EOMI. no scleral icterus. No conjunctival pallor. Normocephalic, atraumatic. No pharyngeal erythema. No thyromegaly. CARDIOVASCULAR: S1 and S2 muffled PULMONARY: diminished breath sounds bilaterally with no wheezing or rhonchi noted. ABDOMEN: soft. tender on exam. obese. non-distended, normoactive bowel sounds. No palpable organomegaly. surgical dressing dry and intact MUSCULOSKELETAL: No joint swelling or deformity. EXTREMITIES: No cyanosis, clubbing, or pedal edema. NEUROLOGICAL: Gross neurological examination did not reveal any focal deficits. Diffuse weakness SKIN: No rashes. Assessment: History of perforated diverticulitis in 02/2023 requiring sigmoid colectomy with colostomy Status post colostomy reversal postop 06/19/2023 Obesity with a BMI of 34.0 THC use Vaping GI prophylaxis DVT prophylaxis Full code Plan: Patient to continue with current medications and management per general surgery services. Patient was admitted for colostomy reversal. Abdominal binder is in place and surgical dressing was changed and currently dry and intact. Patient is continued on clear liquids today and will be advanced to full liquids in a.m. per surgery recommendations follow-up labs in the morning including CBC, BMP, magnesium [place] catheter removed and Encouraged increased activity as tolerated We will continue to follow with general surgery during hospitalization. Thank you kindly for this consultation. The impression and plan of care has been dictated by Kimberley Marks, nurse practitioner as directed. Dr. Lulú MD I have performed a history and examination and MDM of this patient, discussed the same with the dictator, and agree with the dictator's assessment and plan as written ,documented as a scribe. Based on total visit time, I have performed more than 50% of the visit. Any additional findings or plans will be noted. Objective - Vital Signs Vital signs: Vital Signs Temp 98.2 F 06/22/23 01:27 Pulse 73 06/22/23 01:27 Resp 18 06/21/23 20:00 BP 141/87 06/22/23 01:27 Pulse Ox 98 06/22/23 01:27 FiO2 Intake & Output 06/21/23 06/21/23 06/22/23 06:59 18:59 06:59 Output Total 750 Balance -750 Output: Urine 750 Other: # Voids 3 3 3 - Labs CBC & Chem 7: 06/21/23 07:48 06/21/23 07:48 Labs: Abnormal Lab Results - Last 24 Hours (Table) 06/21/23 06/21/23 Range/Units 07:48 07:48 WBC 13.07 H (4.50-10.00) X 10*3/uL Neutrophils # 10.06 H (1.80-7.70) X 10*3/uL Monocytes # 1.08 H (0.20-1.00) X 10*3/uL Sodium 134 L (135-145) mmol/L Carbon Dioxide 20.9 L (21.6-31.8) mmol/L Anion Gap 16.10 H (4.00-12.00) mmol/L BUN 5.5 L (9.0-27.0) mg/dL BUN/Creatinine Ratio 7.86 L (12.00-20.00) Ratio
[2023-06-22] MEDS: PANTOPRAZOLE 40 MG/10 ML VIAL IV SCH (07:45)
[2023-06-22] MEDS: HYDROcodone/APAP 5-325MG 1 EACH TAB PO PRN ×3 (07:45→21:18)
[2023-06-22] MEDS: HEPARIN SODIUM,PORCINE/PF 5,000 UNIT/0.5 ML SYRINGE SQ SCH ×3 (10:09→21:27)
--- NOTE | 2023-06-22 11:12 | P.PN ---
Progress Note - Text Progress Note Date: 06/22/23 The patient has had flatus. He still has complaints of incisional pain. On exam vital signs appear stable. Abdomen soft. Incisions clean dry tach. Status post reversal colostomy. Patient will start full liquid diet.
[2023-06-22 13:42] LABS: Basophils # (A) 0.04 X 10*3/uL (0.00-0.10); Basophils % (A) 0.4 %; Eosinophils # (A) 0.22 X 10*3/uL (0.04-0.35); Eosinophils % (A) 2.1 %; HCT 46.1 % (39.6-50.0); HGB 15.2 d/dL (13.0-17.0); Lymphocytes # (A) 1.71 X 10*3/uL (0.90-5.00); Lymphocytes % (A) 16.2 %; MCH 29.1 pg (27.0-32.0); MCV 88.1 FL (80.0-97.0); Mean Platelet Volume 10.6 FL (9.5-12.2); Monocytes # (A) 0.95 X 10*3/uL (0.20-1.00); NRBC Per 100 WBC 0 X 10*3/uL (0.00-0.01); Neutrophils # (A) 7.55 X 10*3/uL (1.80-7.70); Neutrophils % (A) 71.6 %; Platelet Count 307 X 10*3/uL (140-440); RBC 5.23 X 10*6/uL (4.40-5.60); RDW 12.7 % (11.5-14.5); WBC 10.54 X 10*3/uL (4.50-10.00)
[2023-06-22 15:01] LABS: BUN/Creat Ratio 9.67 Ratio (12.00-20.00); Blood Urea Nitrogen 5.8 mg/dL (9.0-27.0); Calcium 9.5 mg/dL (8.7-10.3); Carbon Dioxide 21.2 mmol/L (21.6-31.8); Chloride 98 mmol/L (96-109); Glucose 79 mg/dL (70-110); Potassium 4.2 mmol/L (3.5-5.5); Sodium 135 mmol/L (135-145)
--- NOTE | 2023-06-22 19:36 | P.PN ---
Subjective Progress Note Date: 06/22/23 - Reason for Consult Consult date: 06/19/23 Medical management, postoperative colostomy reversal from perforated divert - History of Present Illness This is a 28-year-old male who was admitted under surgical services with past medical history of perforated diverticulitis requiring colostomy and was here for colostomy reversal, postop day 0. Patient with no significant past medical history other than perforated diverticulitis in February 2023 requiring sigmoid colectomy with colostomy. Patient is postoperative sitting up in the bed with family at bedside maintained on epidural pain pump reporting some itching on his back and generalized. Will add IV Benadryl as needed. Patient is also continued on cefazolin and metronidazole per surgery and will continue. Patient is currently being started on clear liquid diet and will advance per surgery recommendations. Would recommend a.m. labs and also incentive spirometer and encourage the patient to continue using at least 10 times every hour while awake. Patient also continues with pain pump with anesthesia following. Patient does have abdominal binder noted and would recommend continuing to use while out of bed. 06/20/2023 Patient is seen in follow-up today reporting abdominal pain. Patient denies passing gas or having any bowel movements. Patient reports to minimal belching currently maintained on clear liquids. Patient continues to have some nausea and has not vomited today. Patient with generalized weakness and fatigue. Current abdominal dressings are dry and intact continue local wound care. Pain pump has been discontinued and would encourage increased activity as tolerated. Encouraged incentive spirometer at least 10 times every hour while awake. Patient is currently afebrile and awaiting a.m. labs and will follow-up with those. Replace electrolytes per protocol. 06/21/2023 Patient is seen this morning post colostomy reversal maintained on clear liquids and tolerating. Patient continues to report abdominal pain and denies nausea and vomiting. Patient had Ling catheter removed and awaiting to void. Patient reports passing some gas but very minimal bowel movement today. Encouraged increased activity as tolerated and oral pain medications being added. Patient continue with dressing changes. White count trending down and patient is afebrile. 06/22/2023 Patient is seen today in bed sleeping although arousable. Discussed with [facility] about getting up more frequently and walking and sitting up in the chair more often as patient is mostly bed and sleeping and lying in bed. Patient reports he has been up and walking and had gotten fatigued and laid back down. Patient is being started on full liquid diet. Patient continues with some nausea and no vomiting. Patient reports to passing some gas and had a small bowel movement yesterday. Encourage incentive spirometer at least 10 times every hour while awake. Lung sounds coarse on exam with concerns of atelectasis. Patient is afebrile with no reports of chest pain or shortness of breath. Patient is currently on room air. Follow-up labs reveal CBC is trending down and patient is afebrile. BMP within normal limits. Review of systems: Constitutional: reports of fatigue, no fever, or chills Cardiovascular: No reports of chest pain or palpitations Respiratory: No reports of shortness of breath or cough GI: reports of intermittent nausea, no vomiting, or diarrhea, patient is passing gas and very small bowel movement yesterday : No reports of dysuria or retention Neurovascular: reports of generalized weakness All medications have been reviewed PHYSICAL EXAMINATION: GENERAL: The patient is asleep although easily arousable, alert and oriented x4, Well developed, well nourished. obese HEENT: Pupils are round and equally reacting to light. EOMI. no scleral icterus. No conjunctival pallor. Normocephalic, atraumatic. No pharyngeal erythema. No thyromegaly. CARDIOVASCULAR: S1 and S2 muffled PULMONARY: diminished breath sounds bilaterally with no wheezing or rhonchi noted. ABDOMEN: soft. tender on exam. obese. non-distended, normoactive bowel sounds. No palpable organomegaly. surgical dressing dry and intact MUSCULOSKELETAL: No joint swelling or deformity. EXTREMITIES: No cyanosis, clubbing, or pedal edema. NEUROLOGICAL: Gross neurological examination did not reveal any focal deficits. Diffuse weakness SKIN: No rashes. Assessment: History of perforated diverticulitis on 02/2023 requiring sigmoid colectomy with colostomy Status post colostomy reversal postop 06/19/2023 Obesity with a BMI of 34.0 THC use Vaping GI prophylaxis DVT prophylaxis Full code Plan: Patient to continue with current medications and management per general surgery services. Patient was admitted for colostomy reversal. Patient is passing gas and reported a very scant small amount of bowel movement yesterday. Abdominal binder is in place and surgical dressing was changed and currently dry and intact. Patient is continued on clear liquids and is being advanced to full liquids per surgery. Patient reports tolerating with some intermittent nausea and requesting real food Patient is afebrile and WBC is normalized at 10 Patient continues to be found in bed mostly and reports has been getting up and walking and discussed with the patient the importance of increased activity in sitting up in the chair more often and continued incentive spirometer use. Patient is voiding Ling was removed yesterday. Patient reports has been up and to the bathroom. We will continue to follow with general surgery during hospitalization. Thank you kindly for this consultation. The impression and plan of care has been dictated by Kimberley Marks, nurse practitioner as directed. Dr. Lulú MD I have performed a history and examination and MDM of this patient, discussed the same with the dictator, and agree with the dictator's assessment and plan as written ,documented as a scribe. Based on total visit time, I have performed more than 50% of the visit. Any additional findings or plans will be noted. Objective - Vital Signs Vital signs: Vital Signs Temp 98.1 F 06/22/23 14:00 Pulse 83 06/22/23 14:00 Resp 17 06/22/23 14:00 BP 139/93 06/22/23 14:00 Pulse Ox 99 06/22/23 14:00 FiO2 Intake & Output 06/22/23 06/22/23 06/23/23 06:59 18:59 06:59 Other: Voiding Method Toilet Urinal # Voids 3 - Labs CBC & Chem 7: 06/22/23 07:50 06/22/23 07:50 Labs: Abnormal Lab Results - Last 24 Hours (Table) 06/22/23 06/22/23 Range/Units 07:50 07:50 WBC 10.54 H (4.50-10.00) X 10*3/uL Carbon Dioxide 21.2 L (21.6-31.8) mmol/L Anion Gap 15.80 H (4.00-12.00) mmol/L BUN 5.8 L (9.0-27.0) mg/dL BUN/Creatinine Ratio 9.67 L (12.00-20.00) Ratio
[2023-06-23] MEDS: LACTATED RINGERS 1,000 ML IV SCH ×3 (02:03→12:48)
[2023-06-23] MEDS: HYDROmorphone 1 MG/ML 1 ML SYRINGE IVP PRN ×5 (02:04→21:12)
[2023-06-23] MEDS: PANTOPRAZOLE 40 MG/10 ML VIAL IV SCH (08:10)
[2023-06-23] MEDS: HEPARIN SODIUM,PORCINE/PF 5,000 UNIT/0.5 ML SYRINGE SQ SCH ×2 (08:10→16:27)
[2023-06-23] MEDS: HYDROcodone/APAP 5-325MG 1 EACH TAB PO PRN (08:18)
--- NOTE | 2023-06-23 11:23 | P.PN ---
Progress Note - Text Progress Note Date: 06/23/23 Patient feels better. He is requesting be switched to oral pain meds. He has had bowel movements and flatus. On exam vital signs are stable. Abdomen soft. Incision is clean dry tach. Settles reversal colostomy. Patient will have oral [place] pain medication added. We will advance his diet slowly.
[2023-06-23] MEDS: HYDROcodone/APAP 7.5-325MG 1 EACH TAB PO PRN (14:05)
[2023-06-24] MEDS: LACTATED RINGERS 1,000 ML IV SCH ×5 (01:04→23:06)
[2023-06-24] MEDS: HEPARIN SODIUM,PORCINE/PF 5,000 UNIT/0.5 ML SYRINGE SQ SCH ×4 (01:08→23:33)
[2023-06-24] MEDS: HYDROcodone/APAP 7.5-325MG 1 EACH TAB PO PRN ×4 (01:08→20:40)
[2023-06-24 10:10] LABS: African American GFR (CKD) >90 (>60 ml/min/1.73 sqM); Anion Gap 9 mmol/L; Blood Urea Nitrogen 6 mg/dL (9-20); Calcium 9.1 mg/dL (8.4-10.2); Carbon Dioxide 29 mmol/L (22-30); Chloride 99 mmol/L (98-107); Glucose 138 mg/dL (74-99); Non-African American GFR(CKD) >90 (>60 ml/min/1.73 sqM); Potassium 3.8 mmol/L (3.5-5.1); Sodium 137 mmol/L (137-145)
[2023-06-24] MEDS: PANTOPRAZOLE 40 MG/10 ML VIAL IV SCH (10:13)
--- NOTE | 2023-06-24 10:44 | P.PN ---
Progress Note - Text Progress Note Date: 06/24/23 Patient's doing better today. He has had some bowel movements yesterday. Using diluted. On exam vital signs appear stable. Abdomen soft. Status post reversal colostomy. Patient will be discharged home tomorrow.
--- NOTE | 2023-06-24 16:35 | P.PN ---
Subjective Progress Note Date: 06/23/23 This is a 28-year-old male who was admitted under surgical services with past medical history of perforated diverticulitis requiring colostomy and was here for colostomy reversal, postop day 0. Patient with no significant past medical history other than perforated diverticulitis in February 2023 requiring sigmoid colectomy with colostomy. Patient is postoperative sitting up in the bed with family at bedside maintained on epidural pain pump reporting some itching on his back and generalized. Will add IV Benadryl as needed. Patient is also continued on cefazolin and metronidazole per surgery and will continue. Patient is currently being started on clear liquid diet and will advance per surgery r ecommendations. Would recommend a.m. labs and also incentive spirometer and encourage the patient to continue using at least 10 times every hour while awake. Patient also continues with pain pump with anesthesia following. Patient does have abdominal binder noted and would recommend continuing to use while out of bed. 06/20/2023 Patient is seen in follow-up today reporting abdominal pain. Patient denies passing gas or having any bowel movements. Patient reports to minimal belching currently maintained on clear liquids. Patient continues to have some nausea and has not vomited today. Patient with generalized weakness and fatigue. Current abdominal dressings are dry and intact continue local wound care. Pain pump has been discontinued and would encourage increased activity as tolerated. Encouraged incentive spirometer at least 10 times every hour while awake. Patient is currently afebrile and awaiting a.m. labs and will follow-up with those. Replace electrolytes per protocol. 06/21/2023 Patient is seen this morning post colostomy reversal maintained on clear liquids and tolerating. Patient continues to report abdominal pain and denies nausea and vomiting. Patient had Ling catheter removed and awaiting to void. Patient reports passing some gas but very minimal bowel movement today. Encouraged increased activity as tolerated and oral pain medications being added. Patient continue with dressing changes. White count trending down and patient is afebrile. 06/22/2023 Patient is seen today in bed sleeping although arousable. Discussed with patient about getting up more frequently and walking and sitting up in the chair more often as patient is mostly bed and sleeping and lying in bed. Patient reports he has been up and walking and had gotten fatigued and laid back down. Patient is being started on full liquid diet. Patient continues with some nausea and no vomiting. Patient reports to passing some gas and had a small bowel movement yesterday. Encourage incentive spirometer at least 10 times every hour while awake. Lung sounds coarse on exam with concerns of atelectasis. Patient is afebrile with no reports of chest pain or shortness of breath. Patient is currently on room air. Follow-up labs reveal CBC is trending down and patient is afebrile. BMP within normal limits. 06/23/2023 Patient is evaluated today resting in bed. He continues to report improvement in his abdominal pain he has wearing his abdominal binder and incisions are clean and dry. Patient has been getting up to the bathroom and has having bowel movements mostly loose in nature. He is passing some gas. He is pointing about 2500 on his incentive spirometer he does use encouragement to get up and ambulate and this was discussed again with patient today at bedside. General surgery is fine closely and diet has been advanced to full liquid. Review of systems: Constitutional: reports of fatigue, no fever, or chills Cardiovascular: No reports of chest pain or palpitations Respiratory: No reports of shortness of breath or cough GI: reports of intermittent nausea, no vomiting, or diarrhea, patient is passing gas and reports small loose bowel movements. : No reports of dysuria or retention Neurovascular: reports of generalized weakness All medications have been reviewed PHYSICAL EXAMINATION: GENERAL: The patient is asleep although easily arousable, alert and oriented x4, Well developed, well nourished. obese HEENT: Pupils are round and equally reacting to light. EOMI. no scleral icterus. No conjunctival pallor. Normocephalic, atraumatic. No pharyngeal erythema. No thyromegaly. CARDIOVASCULAR: S1 and S2 muffled PULMONARY: diminished breath sounds bilaterally with no wheezing or rhonchi noted. ABDOMEN: soft. tender on exam. obese. non-distended, normoactive bowel sounds. No palpable organomegaly. surgical dressing dry and intact MUSCULOSKELETAL: No joint swelling or deformity. EXTREMITIES: No cyanosis, clubbing, or pedal edema. NEUROLOGICAL: Gross neurological examination did not reveal any focal deficits. Diffuse weakness SKIN: No rashes. Assessment: History of perforated diverticulitis on 02/2023 requiring sigmoid colectomy with colostomy Status post colostomy reversal postop 06/19/2023 Obesity with a BMI of 34.0 THC use Vaping GI prophylaxis DVT prophylaxis Full code Plan: Patient to continue with current medications and management per general surgery services. Patient was admitted for colostomy reversal. Patient is passing gas and reports having loose bowel movements that they are increasing. Patient's diet has been advanced to regular by surgical services. Abdominal binder is in place and surgical dressing was changed and currently dry and intact. Patient continues to be found in bed mostly and reports has been getting up and walking and discussed with the patient the importance of increased activity in sitting up in the chair more often and continued incentive spirometer use. Patient is voiding Ling was removed yesterday. Patient reports has been up and to the bathroom. We will continue to follow with general surgery during hospitalization. Thank you kindly for this consultation. The impression and plan of care has been dictated by Tiara Crowley, Nurse Practitioner as directed. Dr. Lulú MD I have performed a history and physical examination and medical decision making of this patient, discussed the same with the dictator, and agree with the dictators assessment and plan as written, documented as a scribe. Based on total visit time, I have performed more than 50% of this visit. Objective - Vital Signs Vital signs: Vital Signs Temp 98.3 F 06/23/23 13:23 Pulse 99 06/23/23 13:23 Resp 17 06/23/23 13:23 BP 144/84 06/23/23 13:23 Pulse Ox 98 06/23/23 13:23 FiO2 Intake & Output 06/22/23 06/23/23 06/23/23 18:59 06:59 18:59 Other: Voiding Method Toilet Toilet Toilet Urinal # Voids 2 2 - Labs CBC & Chem 7: 06/22/23 07:50 06/24/23 09:27 Assessment and Plan Time with Patient: Less than 30
--- NOTE | 2023-06-24 16:38 | P.PN ---
Subjective Progress Note Date: 06/24/23 This is a 28-year-old male who was admitted under surgical services with past medical history of perforated diverticulitis requiring colostomy and was here for colostomy reversal, postop day 0. Patient with no significant past medical history other than perforated diverticulitis in February 2023 requiring sigmoid colectomy with colostomy. Patient is postoperative sitting up in the bed with family at bedside maintained on epidural pain pump reporting some itching on his back and generalized. Will add IV Benadryl as needed. Patient is also continued on cefazolin and metronidazole per surgery and will continue. Patient is currently being started on clear liquid diet and will advance per surgery r ecommendations. Would recommend a.m. labs and also incentive spirometer and encourage the patient to continue using at least 10 times every hour while awake. Patient also continues with pain pump with anesthesia following. Patient does have abdominal binder noted and would recommend continuing to use while out of bed. 06/20/2023 Patient is seen in follow-up today reporting abdominal pain. Patient denies passing gas or having any bowel movements. Patient reports to minimal belching currently maintained on clear liquids. Patient continues to have some nausea and has not vomited today. Patient with generalized weakness and fatigue. Current abdominal dressings are dry and intact continue local wound care. Pain pump has been discontinued and would encourage increased activity as tolerated. Encouraged incentive spirometer at least 10 times every hour while awake. Patient is currently afebrile and awaiting a.m. labs and will follow-up with those. Replace electrolytes per protocol. 06/21/2023 Patient is seen this morning post colostomy reversal maintained on clear liquids and tolerating. Patient continues to report abdominal pain and denies nausea and vomiting. Patient had Ling catheter removed and awaiting to void. Patient reports passing some gas but very minimal bowel movement today. Encouraged increased activity as tolerated and oral pain medications being added. Patient continue with dressing changes. White count trending down and patient is afebrile. 06/22/2023 Patient is seen today in bed sleeping although arousable. Discussed with patient about getting up more frequently and walking and sitting up in the chair more often as patient is mostly bed and sleeping and lying in bed. Patient reports he has been up and walking and had gotten fatigued and laid back down. Patient is being started on full liquid diet. Patient continues with some nausea and no vomiting. Patient reports to passing some gas and had a small bowel movement yesterday. Encourage incentive spirometer at least 10 times every hour while awake. Lung sounds coarse on exam with concerns of atelectasis. Patient is afebrile with no reports of chest pain or shortness of breath. Patient is currently on room air. Follow-up labs reveal CBC is trending down and patient is afebrile. BMP within normal limits. 06/23/2023 Patient is evaluated today resting in bed. He continues to report improvement in his abdominal pain he has wearing his abdominal binder and incisions are clean and dry. Patient has been getting up to the bathroom and has having bowel movements mostly loose in nature. He is passing some gas. He is pointing about 2500 on his incentive spirometer he does use encouragement to get up and ambulate and this was discussed again with patient today at bedside. General surgery is fine closely and diet has been advanced to full liquid. 06/24/2023 Patient is evaluated today Resting in bed. He continues to report improvement in his abdominal pain and be controlled with oral pain medications. Patient's diet has been advanced to regular by surgical services and we will recommend to decrease IV fluids to 75 mls/hr. Patient remains hemodynamically stable he is afebrile. He continues to do well on his incentive spirometer he does need encouragement to be up out of bed ambulating and up in chairs for meals. He would like to shower today. Surgery is considering patient for DC in the next 24 hours. Review of systems: Constitutional: reports of fatigue, no fever, or chills Cardiovascular: No reports of chest pain or palpitations Respiratory: No reports of shortness of breath or cough GI: reports of intermittent nausea, no vomiting, or diarrhea, patient is passing gas and reports small loose bowel movements. : No reports of dysuria or retention Neurovascular: reports of generalized weakness All medications have been reviewed PHYSICAL EXAMINATION: GENERAL: The patient is asleep although easily arousable, alert and oriented x4, Well developed, well nourished. obese HEENT: Pupils are round and equally reacting to light. EOMI. no scleral icterus. No conjunctival pallor. Normocephalic, atraumatic. No pharyngeal erythema. No thyromegaly. CARDIOVASCULAR: S1 and S2 muffled PULMONARY: diminished breath sounds bilaterally with no wheezing or rhonchi noted. ABDOMEN: soft. tender on exam. obese. non-distended, normoactive bowel sounds. No palpable organomegaly. surgical dressing dry and intact MUSCULOSKELETAL: No joint swelling or deformity. EXTREMITIES: No cyanosis, clubbing, or pedal edema. NEUROLOGICAL: Gross neurological examination did not reveal any focal deficits. Diffuse weakness SKIN: No rashes. Assessment: History of perforated diverticulitis on 02/2023 requiring sigmoid colectomy with colostomy Status post colostomy reversal postop 06/19/2023 Obesity with a BMI of 34.0 THC use Vaping GI prophylaxis DVT prophylaxis Full code Plan: Patient to continue with current medications and management per general surgery services. Patient was admitted for colostomy reversal. Patient is passing gas and reports having loose bowel movements that they are increasing. Patient's diet has been advanced to regular by surgical services. Abdominal binder is in place and surgical dressing was changed and currently dry and intact. Patient continues to be found in bed mostly and reports has been getting up and walking and discussed with the patient the importance of increased activity in sitting up in the chair more often and continued incentive spirometer use. Patient is voiding Ling was removed yesterday. Patient reports has been up and to the bathroom. We will continue to follow with general surgery during hospitalization. Thank you kindly for this consultation. Dr Hooper will resume care of this patient tomorrow and Dr. Sarabia is recommending discharge in the next 24 hours. The impression and plan of care has been dictated by Tiara Crowley Nurse Practitioner as directed. Dr. Lulú MD I have performed a history and physical examination and medical decision making of this patient, discussed the same with the dictator, and agree with the dictators assessment and plan as written, documented as a scribe. Based on total visit time, I have performed more than 50% of this visit. Objective - Vital Signs Vital signs: Vital Signs Temp 98.5 F 06/24/23 13:16 Pulse 87 06/24/23 13:16 Resp 18 06/24/23 13:16 BP 138/86 06/24/23 13:16 Pulse Ox 98 06/24/23 13:16 FiO2 Intake & Output 06/23/23 06/24/23 06/24/23 18:59 06:59 18:59 Other: Voiding Method Toilet Toilet # Voids 2 2 3 - Labs CBC & Chem 7: 06/22/23 07:50 06/24/23 09:27 Labs: Abnormal Lab Results - Last 24 Hours (Table) 06/24/23 Range/Units 09:27 BUN 6 L (9-20) mg/dL Creatinine 0.65 L (0.66-1.25) mg/dL Glucose 138 H (74-99) mg/dL Assessment and Plan Time with Patient: Less than 30
[2023-06-25] MEDS: HYDROcodone/APAP 7.5-325MG 1 EACH TAB PO PRN (09:28)
[2023-06-25] MEDS: HEPARIN SODIUM,PORCINE/PF 5,000 UNIT/0.5 ML SYRINGE SQ SCH (09:28)
[2023-06-25 14:07] LABS: BUN/Creat Ratio 13.14 Ratio (12.00-20.00); Blood Urea Nitrogen 9.2 mg/dL (9.0-27.0); Calcium 9.6 mg/dL (8.7-10.3); Carbon Dioxide 25.1 mmol/L (21.6-31.8); Chloride 101 mmol/L (96-109); Glucose 90 mg/dL (70-110); Magnesium 2.1 mg/dL (1.5-2.4); Potassium 4.3 mmol/L (3.5-5.5); Sodium 139 mmol/L (135-145)
--- NOTE | 2023-06-25 15:11 | P.PN ---
Progress Note - Text Progress Note Date: 06/25/23 This is a 28-year-old male who was admitted under surgical services with past medical history of perforated diverticulitis requiring colostomy and was here for colostomy reversal, postop day 0. Patient with no significant past medical history other than perforated diverticulitis in February 2023 requiring sigmoid colectomy with colostomy. Patient is postoperative sitting up in the bed with family at bedside maintained on epidural pain pump reporting some itching on his back and generalized. Will add IV Benadryl as needed. Patient is also continued on cefazolin and metronidazole per surgery and will continue. Patient is currently being started on clear liquid diet and will advance per surgery recommendations. Would recommend a.m. labs and also incentive spirometer and encourage the patient to continue using at least 10 times every hour while awake. Patient also continues with pain pump with anesthesia following. Patient does have abdominal binder noted and would recommend continuing to use while out of bed. 06/20/2023 Patient is seen in follow-up today reporting abdominal pain. Patient denies passing gas or having any bowel movements. Patient reports to minimal belching currently maintained on clear liquids. Patient continues to have some nausea and has not vomited today. Patient with generalized weakness and fatigue. Current abdominal dressings are dry and intact continue local wound care. Pain pump has been discontinued and would encourage increased activity as tolerated. Encouraged incentive spirometer at least 10 times every hour while awake. Patient is currently afebrile and awaiting a.m. labs and will follow-up with those. Replace electrolytes per protocol. 06/21/2023 Patient is seen this morning post colostomy reversal maintained on clear liquids and tolerating. Patient continues to report abdominal pain and denies nausea and vomiting. Patient had Ling catheter removed and awaiting to void. Patient reports passing some gas but very minimal bowel movement today. Encouraged increased activity as tolerated and oral pain medications being added. Patient continue with dressing changes. White count trending down and patient is afebrile. 06/22/2023 Patient is seen today in bed sleeping although arousable. Discussed with patient about getting up more frequently and walking and sitting up in the chair more often as patient is mostly bed and sleeping and lying in bed. Patient reports he has been up and walking and had gotten fatigued and laid back down. Patient is being started on full liquid diet. Patient continues with some nausea and no vomiting. Patient reports to passing some gas and had a small bowel movement yesterday. Encourage incentive spirometer at least 10 times every hour while awake. Lung sounds coarse on exam with concerns of atelectasis. Patient is afebrile with no reports of chest pain or shortness of breath. Patient is currently on room air. Follow-up labs reveal CBC is trending down and patient is afebrile. BMP within normal limits. 06/23/2023 Patient is evaluated today resting in bed. He continues to report improvement in his abdominal pain he has wearing his abdominal binder and incisions are clean and dry. Patient has been getting up to the bathroom and has having bowel movements mostly loose in nature. He is passing some gas. He is pointing about 2500 on his incentive spirometer he does use encouragement to get up and ambulate and this was discussed again with patient today at bedside. General surgery is fine closely and diet has been advanced to full liquid. 06/24/2023 Patient is evaluated today Resting in bed. He continues to report improvement in his abdominal pain and be controlled with oral pain medications. Patient's diet has been advanced to regular by surgical services and we will recommend to decrease IV fluids to 75 mls/hr. Patient remains hemodynamically stable he is afebrile. He continues to do well on his incentive spirometer he does need encouragement to be up out of bed ambulating and up in chairs for meals. He would like to shower today. Surgery is considering patient for DC in the next 24 hours. 06/25/2023: I assumed care of the patient today Oral intake fair. Bowel movement. Some pain at the operative site. Has a binder in place. Active Medications Acetaminophen (Acetaminophen Tab 325 Mg Tab) 650 mg PO Q6HR PRN PRN Reason: Mild Pain or Fever >= 100.5 Hydrocodone Bitart/Acetaminophen (Hydrocodone/Apap 5-325mg 1 Each Tab) 1 each PO Q4HR PRN PRN Reason: Pain Last Admin: 06/23/23 08:18 Dose: 1 each Hydrocodone Bitart/Acetaminophen (Hydrocodone/Apap 7.5-325mg 1 Each Tab) 1 each PO Q6H PRN PRN Reason: Pain Last Admin: 06/25/23 09:28 Dose: 1 each Diphenhydramine HCl (Diphenhydramine 50 Mg/Ml 1 Ml Vial) 25 mg IVP Q6HR PRN PRN Reason: Allergy Symptoms Last Admin: 06/20/23 07:46 Dose: 25 mg Heparin Sodium (Porcine) (Heparin Sodium,Porcine/Pf 5,000 Unit/0.5 Ml Syringe) 5,000 unit SQ Q8HR RODERICK Last Admin: 06/25/23 09:28 Dose: 5,000 unit Lidocaine HCl (Lidocaine 1% (10mg/Ml) For Iv Start) 0.1 ml INTRADERMA PER PROTOCOL PRN PRN Reason: IV Start Metoclopramide HCl (Metoclopramide 5 Mg/Ml 2 Ml Vial) 10 mg IVP Q6H PRN PRN Reason: Nausea And Vomiting Nalbuphine HCl (Nalbuphine 10 Mg/Ml (10 Ml Mdv)) 2.5 mg IV Q4HR PRN PRN Reason: Itching Naloxone HCl (Naloxone 0.4 Mg/Ml 1 Ml Vial) 0.2 mg IV Q2M PRN PRN Reason: Opioid Reversal Naloxone HCl (Naloxone 0.4 Mg/Ml 1 Ml Vial) 0.2 mg IV Q2M PRN PRN Reason: Opioid Reversal Ondansetron HCl (Ondansetron 4 Mg/2 Ml Vial) 4 mg IVP Q8HR PRN PRN Reason: Nausea And Vomiting Ondansetron HCl (Ondansetron 4 Mg/2 Ml Vial) 4 mg IVP Q6HR PRN PRN Reason: Nausea And Vomiting Last Admin: 06/21/23 10:39 Dose: 4 mg On examination: VITAL SIGNS: [98, 73, 18, 137/87, 94% room air] GENERAL APPEARANCE: Average build. Lying in bed, not in distress. HEENT: Normal external appearance of nose and ear. Oral cavity normal EYES: Pupils equal. Conjunctiva normal. NECK: JVD not raised. Mass not palpable. RESPIRATORY: Respiratory effort normal. Lungs clear to auscultation. CARDIOVASCULAR: First and second sounds normal. No edema. ABDOMEN: Soft. Liver and spleen not palpable. No tenderness. No mass palpable. PSYCHIATRY: Alert and oriented x3. Mood and affect normal. INVESTIGATIONS, reviewed in the clinical context: White count 10.5 hemoglobin 15.2 platelets 307 sodium 139 potassium 4.3 creatinine 0.7 Assessment: History of perforated diverticulitis on 02/2023 requiring sigmoid colectomy with colostomy Status post colostomy reversal postop 06/19/2023 Obesity with a BMI of 34.0 THC use Vaping Full code Plan: Patient has been out of bed. Tolerating diet. Keen to go home. Did inform and the decision per surgery. No antibiotics per surgery. Upon discharge patient be staying with his mother for a few days. Questions answered
--- NOTE | 2023-06-25 15:41 | P.DS ---
Providers Date of admission: 06/19/23 06:27 Expected date of discharge: 06/25/23 Attending physician: Bereket Sarabia Consults: 06/19/23 11:19 Consult Physician Routine Consulting Provider: Anthony Hooper Consult Reason/Comments: Medical management Do you want consulting provider notified?: Yes Primary care physician: Stated None Hospital Course: Discharge diagnosis 1. Perforated diverticulitis status post colostomy reversal Hospital course This is a 28-year-old male with a known history of perforated diverticulitis. He is status post colostomy reversal. Patient tolerated surgery well. Pain is controlled. He is having bowel movements. He has been up and ambulating. He's afebrile. Patient has some minimal drainage and erythema at the incision site. He'll be discharged with Levaquin. Patient is stable for discharge. Please refer to chart for any further details. Physician Keno Writer/Runner note has been reviewed by physician. Signing provider agrees with the documented findings, assessment, and plan of care. I have personally seen and examined the patient, reviewed the JOURNEYMAN PLUMBER /PAs history, exam and MDM and agree with the assessment and plan as written. Based on total visit time, I have performed more than 50% of the visit. As above: Patient doing well today. Small amount of serous drainage inferiorly. Begin oral Levaquin for 1 week. May discharge. Follow-up as outpatient. Patient Condition at Discharge: Stable Plan - Discharge Summary Discharge Rx Participant: Yes New Discharge Prescriptions: New Docusate [Colace] 100 mg PO BID #30 capsule Levofloxacin [Levaquin] 500 mg PO DAILY 7 Days #7 tab oxyCODONE HCL [OxyIR] 5 mg PO Q6H PRN 3 Days #12 tab PRN Reason: Pain Discharge Medication List Docusate [Colace] 100 mg PO BID #30 capsule 06/25/23 [Rx] Levofloxacin [Levaquin] 500 mg PO DAILY 7 Days #7 tab 06/25/23 [Rx] oxyCODONE HCL [OxyIR] 5 mg PO Q6H PRN 3 Days #12 tab 06/25/23 [Rx] Follow up Appointment(s)/Referral(s): Bereket Sarabia MD [STAFF PHYSICIAN] - 1 Week Patient Instructions/Handouts: Open Colostomy Reversal (DC) Activity/Diet/Wound Care/Special Instructions: No driving while taking OxyIR No lifting over 10 pounds You may shower. No soaking or tub baths for 2 weeks Very light activity until you are reevaluated at your follow up appointment with your surgeon Discharge/Stand Alone Forms: Area PCPs Discharge Disposition: HOME SELF-CARE
[2023-06-25 16:07] VITALS: BP 145/90; PULSE 91; RESP 19; TEMP 98.4
== END 2023-06-25 16:20 | disposition home or self-care (01) | DRG 223 ==
LOC: 2ORMAIN 06:27 → EEVIPCON 06:27 → 4SSUR 12:01
PROVIDERS: ADMIT Surgery; ATTEND Surgery
PROC: 0DQN0ZZ Repair Sigmoid Colon, Open Approach (ICD-10-PCS; principal; 2023-06-19 08:35)
DX: Z43.3 Encounter for attention to colostomy (principal); E66.9 Obesity, unspecified; Z68.34 Body mass index [BMI] 34.0-34.9, adult; F17.290 Nicotine dependence, other tobacco product, uncomplicated; L29.9 Pruritus, unspecified; Z28.310 Unvaccinated for COVID-19; Z87.19 Personal history of other diseases of the digestive system; Z88.5 Allergy status to narcotic agent; Z88.0 Allergy status to penicillin; Z88.8 Allergy status to other drugs, medicaments and biological substances; Z90.49 Acquired absence of other specified parts of digestive tract
CPT/HCPCS: 80048; 80053; 83735; 85025; 86850; 86900; 86901; 88304; 94760